=== PATIENT | male | born 1970 | race Caucasian/White ===

== ENCOUNTER → 2019-01-04 | Emergency (ER) | payer OTHER | LOC: ER 23:43 ==

== ENCOUNTER 2019-07-02 11:05 | Inpatient (IN) | payer MEDICAID ==
[~2019-07-02] VITALS: Ht 187.9 cm; Wt 62.0 kg
[~2019-07-02 11:05] MED LIST: ASPI325T32 PO; DABI150C5 PO; DILT240C PO; HYDR-3816 PO; IPRA4AER IH; METO-333 PO; RT-ALBUINH IH
[2019-07-02] MEDS ORDERED: ASPIRIN 81 MG CHEW (CHILDREN'S ASA) ONE (11:06)
[2019-07-02] MEDS ORDERED: ASPIRIN 81 MG CHEW (CHILDREN'S ASA) PO ONE (11:15)
--- NOTE | 2019-07-02 11:20 | ED Chest Pain ---
General Stated Complaint: CHEST PAIN Source: patient Exam Limitations: no limitations History of Present Illness Date Seen by Provider: Jul 02, 2019 Time Seen by Provider: 11:17 Initial Comments to ER by private vehicle from home with chest pain left sided constant for 3 days. Has a history of irregular heartbeat he says, follows with a central service tech in [place] whose name he doesn't know. States he doesn't have a primary care provider has his medications with him, this is diltiazem 240 mg daily, metoprolol, Pradaxa. Timing/Duration: 2-3 days Severity/Quality: moderate Activities at Onset: none ASA po FINANCIAL AGENT: No NTG SL FINANCIAL AGENT: No Associated Symptoms: denies symptoms Allergies and Home Medications Allergies Coded Allergies: No Known Drug Allergies (Unverified , 07/05/13) Home Medications Albuterol Sulfate 1 Puff Puff, 2 PUFF IH Q4H, (Reported) 1 PUFF = 90 MCG Albuterol/Ipratropium 4 Gm Aero, 2 PUFF IH DAILY, (Reported) Dabigatran Etexilate Mesylate 150 Mg Capsule, 150 MG PO BID, (Reported) Diltiazem Hcl 240 Mg Cap.sr.24h, 240 MG PO DAILY, (Reported) Take every morning Metoprolol Tartrate 25 Mg Tablet, 25 MG PO BID, (Reported) Patient Home Medication List Home Medication List Reviewed: Yes Review of Systems Review of Systems Constitutional: see HPI EENTM: No Symptoms Reported Respiratory: No Symptoms Reported Cardiovascular: See HPI, Chest Pain Gastrointestinal: No Symptoms Reported Genitourinary: No Symptoms Reported Musculoskeletal: no symptoms reported Skin: no symptoms reported Psychiatric/Neurological: No Symptoms Reported Endocrine: No Symptoms Reported Hematologic/Lymphatic: No Symptoms Reported Past Ekxnnlk-Gvsgyp-Dxuqgi Hx Patient Social History Drug of Choice: cannibus Type Used: Cigarettes 2nd Hand Smoke Exposure: Yes Recent Hopitalizations: No Immunizations Up To Date Tetanus Booster (TDap): Unknown Seasonal Allergies Seasonal Allergies: No Past Medical History Surgeries: No Respiratory: Yes COPD Cardiac: Yes (svt) Atrial Fibrillation, Hypertension Neurological: No Reproductive Disorders: No Genitourinary: No Gastrointestinal: No Musculoskeletal: No Endocrine: No HEENT: No Cancer: No Psychosocial: Yes Anxiety Integumentary: No Blood Disorders: No Adverse Reaction/Blood Tranf: No Physical Exam Vital Signs Vital Signs - First Documented 07/02/19 11:10 Temp 36.3 Pulse 101 Resp 20 B/P (MAP) 124/67 (86) Pulse Ox 100 O2 Delivery Room Air Capillary Refill : Height, Weight, BMI Height: 6'2.00" Weight: 145lbs. 5.0oz. 65.959746bs; 18.7 BMI Method:Stated General Appearance: No Apparent Distress, WD/WN HEENT: PERRL/EOMI, TMs Normal Respiratory: No Accessory Muscle Use, No Respiratory Distress Cardiovascular: Normal Peripheral Pulses, Irregularly Irregular (rate is under 100, a flutter) Gastrointestinal: Normal Bowel Sounds, Non Tender, Soft Extremity: Normal Capillary Refill, Normal Inspection Neurologic/Psychiatric: Alert, Oriented x3 Skin: Normal Color, Warm/Dry Progress/Results/Core Measures Results/Orders Lab Results Laboratory Tests Test 07/02/19 11:30 07/02/19 12:40 Range/Units White Blood Count 10.6 4.3-11.0 10^3/uL Red Blood Count 5.64 4.35-5.85 10^6/uL Hemoglobin 17.7 13.3-17.7 G/DL Hematocrit 52 40-54 % Mean Corpuscular Volume 92 80-99 FL Mean Corpuscular Hemoglobin 31 25-34 PG Mean Corpuscular Hemoglobin Concent 34 32-36 G/DL Red Cell Distribution Width 14.9 H 10.0-14.5 % Platelet Count 263 130-400 10^3/uL Mean Platelet Volume 10.1 7.4-10.4 FL Neutrophils (%) (Auto) 64 42-75 % Lymphocytes (%) (Auto) 23 12-44 % Monocytes (%) (Auto) 9 0-12 % Eosinophils (%) (Auto) 4 0-10 % Basophils (%) (Auto) 1 0-10 % Neutrophils # (Auto) 6.8 1.8-7.8 X 10^3 Lymphocytes # (Auto) 2.5 1.0-4.0 X 10^3 Monocytes # (Auto) 0.9 0.0-1.0 X 10^3 Eosinophils # (Auto) 0.4 H 0.0-0.3 10^3/uL Basophils # (Auto) 0.1 0.0-0.1 10^3/uL Prothrombin Time 14.2 12.2-14.7 SEC INR Comment 1.1 0.8-1.4 Activated Partial Thromboplast Time 47 H 24-35 SEC Sodium Level 141 135-145 MMOL/L Potassium Level 4.4 3.6-5.0 MMOL/L Chloride Level 104 98-107 MMOL/L Carbon Dioxide Level 27 21-32 MMOL/L Anion Gap 10 5-14 MMOL/L Blood Urea Nitrogen 11 7-18 MG/DL Creatinine 1.00 0.60-1.30 MG/DL Estimat Glomerular Filtration Rate > 60 BUN/Creatinine Ratio 11 Glucose Level 89 70-105 MG/DL Calcium Level 10.0 8.5-10.1 MG/DL Corrected Calcium 8.5-10.1 MG/DL Magnesium Level 2.1 1.6-2.4 MG/DL Total Bilirubin 0.4 0.1-1.0 MG/DL Aspartate Amino Transf (AST/SGOT) 28 5-34 U/L Alanine Aminotransferase (ALT/SGPT) 40 0-55 U/L Alkaline Phosphatase 76 40-136 U/L Myoglobin 42.5 10.0-92.0 NG/ML Troponin I 0.079 H <0.028 NG/ML B-Type Natriuretic Peptide 33.8 <100.0 PG/ML Total Protein 8.2 6.4-8.2 GM/DL Albumin 4.7 H 3.2-4.5 GM/DL Lipase 14 8-78 U/L Serum Alcohol < 10 <10 MG/DL Urine Color YELLOW Urine Clarity CLEAR Urine pH 5 5-9 Urine Specific [place] 1.010 L 1.016-1.022 Urine Protein NEGATIVE NEGATIVE Urine Glucose (UA) NEGATIVE NEGATIVE Urine Ketones NEGATIVE NEGATIVE Urine Nitrite NEGATIVE NEGATIVE Urine Bilirubin NEGATIVE NEGATIVE Urine Urobilinogen NORMAL NORMAL MG/DL Urine Leukocyte Esterase NEGATIVE NEGATIVE Urine RBC (Auto) NEGATIVE NEGATIVE Urine RBC NONE /HPF Urine WBC NONE /HPF Urine Squamous Epithelial Cells RARE /HPF Urine Crystals NONE /LPF Urine Bacteria NEGATIVE /HPF Urine Casts PRESENT /LPF Urine Hyaline Casts 2-5 H /LPF Urine Granular Casts RARE /LPF Urine Mucus SMALL H /LPF Urine Culture Indicated NO Urine Opiates Screen NEGATIVE NEGATIVE Urine Oxycodone Screen NEGATIVE NEGATIVE Urine Methadone Screen NEGATIVE NEGATIVE Urine Propoxyphene Screen NEGATIVE NEGATIVE Urine Barbiturates Screen NEGATIVE NEGATIVE Ur Tricyclic Antidepressants Screen NEGATIVE NEGATIVE Urine Phencyclidine Screen NEGATIVE NEGATIVE Urine Amphetamines Screen NEGATIVE NEGATIVE Urine Methamphetamines Screen NEGATIVE NEGATIVE Urine Benzodiazepines Screen NEGATIVE NEGATIVE Urine Cocaine Screen NEGATIVE NEGATIVE Urine Cannabinoids Screen POSITIVE H NEGATIVE My Orders Orders - DEIDRA BARROSO APRN Aspirin Chewable Tablet (Baby Aspirin Ch (07/02/19 11:06) Cbc With Automated Diff (07/02/19 11:15) Magnesium (07/02/19 11:15) Chest 1 View, Ap/Pa Only (07/02/19 11:15) Ekg Tracing (07/02/19 11:15) Cardiac Profile 1 (07/02/19 11:15) Comprehensive Metabolic Panel (07/02/19 11:15) Myoglobin Serum (07/02/19 11:15) Protime With Inr (07/02/19 11:15) Partial Thromboplastin Time (07/02/19 11:15) O2 (07/02/19 11:15) Monitor-Rhythm Ecg Trace Only (07/02/19 11:15) Lipid Panel (07/03/19 06:00) Ed Iv/Invasive Line Start (07/02/19 11:15) Lipase (07/02/19 11:15) BNP (07/02/19 11:15) Aspirin Chewable Tablet (Baby Aspirin Ch (07/02/19 11:15) Drug Screen Stat (Urine) (07/02/19 11:20) Ua Culture If Indicated (07/02/19 11:20) Alcohol (07/02/19 11:30) Enoxaparin Injection (Lovenox Injection) (07/02/19 13:00) Medications Given in ED Current Medications Medications Dose Ordered Sig/Wing Route Start Time Stop Time Status Last Admin Dose Admin Aspirin 324 mg ONCE ONCE PO 07/02/19 11:15 07/02/19 11:18 DC 07/02/19 11:15 324 MG Vital Signs/I&O 07/02/19 07/02/19 11:10 11:10 Temp 36.3 Pulse 101 Resp 20 B/P (MAP) 124/67 (86) Pulse Ox 100 O2 Delivery Room Air Room Air Departure Communication (Admissions) Time/Spoke to Admitting Phy: 13:[address] Martin, we'll admit, consult cardiology Time/Spoke to Consulting Phy: 13:[address] Khalid, agrees to consult, we will use Lovenox. He is rate controlled at 88 on his oral Cardizem. 1312-discussed the plan with the patient, he is agreeable to stay in the hospital, he advises that he has absolutely no pain at this time, all that he has been given his aspirin. He denies ever having had cardiac catheterization as far as he is aware Impression Primary Impression: Chest pain Qualified Codes: R07.9 - Chest pain, unspecified Additional Impression: Elevated troponin Disposition: ADMITTED INPATIENT Condition: Stable Admissions Decision to Admit Reason: Admit from ER (General) Decision to Admit/Date: Jul 02, 2019 Time/Decision to Admit Time: 13:14 Departure-Patient Inst. Referrals: NO,LOCAL PHYSICIAN (PCP/Family) Primary Care Physician DEIDRA BARROSO APRN Jul 02, 2019 11:20
[2019-07-02 11:53] LABS: BASOPHILS # (AUTO) 0.1 10^3/uL (0.0-0.1); BASOPHILS % (AUTO) 1 % (0-10); EOSINOPHILS # (AUTO) 0.4 10^3/uL (0.0-0.3); EOSINOPHILS % (AUTO) 4 % (0-10); HEMATOCRIT 52 % (40-54); HEMOGLOBIN 17.7 G/DL (13.3-17.7); LYMPHOCYTES # (AUTO) 2.5 X 10^3 (1.0-4.0); LYMPHOCYTES % (AUTO) 23 % (12-44); MEAN CORPUSCULAR HEMOGLOBIN 31 PG (25-34); MEAN CORPUSCULAR HGB CONC 34 G/DL (32-36); MEAN CORPUSCULAR VOLUME 92 FL (80-99); MEAN PLATELET VOLUME 10.1 FL (7.4-10.4); MONOCYTES # (AUTO) 0.9 X 10^3 (0.0-1.0); MONOCYTES % (AUTO) 9 % (0-12); NEUTROPHILS # (AUTO) 6.8 X 10^3 (1.8-7.8); NEUTROPHILS % (AUTO) 64 % (42-75); PLATELET COUNT 263 10^3/uL (130-400); RED CELL DISTRIBUTION WIDTH 14.9 % (10.0-14.5); WHITE BLOOD COUNT 10.6 10^3/uL (4.3-11.0)
--- NOTE | 2019-07-02 12:03 | Diagnostic Imaging Report ---
INDICATION: Chest pain. TECHNIQUE: A frontal chest was obtained at 1136 hours. COMPARISON: 01/05/2019. FINDINGS: The heart is borderline enlarged. There is hyperinflation, compatible with COPD. There is no consolidation, pneumothorax, or pleural fluid. There is mild central vascular congestion without hardik edema. IMPRESSION: Mild cardiomegaly with mild central vascular congestion and hyperinflation, compatible with COPD. No acute change from 01/05/2019. Dictated by: Dictated on workstation # [id number]
[2019-07-02 12:25] LABS: INR 1.1 (0.8-1.4); PROTHROMBIN TIME PATIENT 14.2 SEC (12.2-14.7)
[2019-07-02 12:31] LABS: ALANINE AMINOTRANSFERASE 40 U/L (0-55); ALBUMIN 4.7 GM/DL (3.2-4.5); ALKALINE PHOSPHATASE 76 U/L (40-136); BILIRUBIN,TOTAL 0.4 MG/DL (0.1-1.0); BUN/CREATININE RATIO 11; CARBON DIOXIDE 27 MMOL/L (21-32); CHLORIDE 104 MMOL/L (98-107); GFR ESTIMATED > 60; GLUCOSE 89 MG/DL (70-105); LIPASE 14 U/L (8-78); MAGNESIUM 2.1 MG/DL (1.6-2.4); POTASSIUM 4.4 MMOL/L (3.6-5.0); SODIUM 141 MMOL/L (135-145); TOTAL PROTEIN 8.2 GM/DL (6.4-8.2)
[2019-07-02 12:53] LABS: BILIRUBIN,URINE NEGATIVE (NEGATIVE); CLARITY,URINE CLEAR; COLOR,URINE YELLOW; GLUCOSE, URINE (UA) NEGATIVE (NEGATIVE); KETONES,URINE NEGATIVE (NEGATIVE); LEUKOCYTE ESTERASE ,URINE NEGATIVE (NEGATIVE); NITRITE,URINE NEGATIVE (NEGATIVE); PH,URINE 5 (5-9); PROTEIN,URINE NEGATIVE (NEGATIVE); UROBILINOGEN,URINE NORMAL (NORMAL)
[2019-07-02] MEDS ORDERED: ENOXAPARIN 60 MG/0.6 ML (LOVENOX) SYR SC ONE (13:00)
[2019-07-02 13:07] LABS: AMPHETAMINE SCREEN, URINE NEGATIVE (NEGATIVE); BARBITURATE SCREEN URINE NEGATIVE (NEGATIVE); BENZODIAZEPINES SCREEN URINE NEGATIVE (NEGATIVE); CANNABINOID SCREEN, URINE POSITIVE (NEGATIVE); COCAINE SCREEN URINE NEGATIVE (NEGATIVE); METHADONE STAT NEGATIVE (NEGATIVE); METHAMPHETAMINE SCREEN URINE S NEGATIVE (NEGATIVE); OPIATE SCREEN URINE NEGATIVE (NEGATIVE); OXYCODONE STAT NEGATIVE (NEGATIVE); PROPOXYPHENE STAT NEGATIVE (NEGATIVE); TRICYCLIC ANTIDEPRESSANTS SCRE NEGATIVE (NEGATIVE)
[2019-07-02 13:08] LABS: BACTERIA,URINE NEGATIVE /HPF; GRANULAR CASTS,URINE RARE /LPF; SQUAMOUS EPITHELIAL CELL,UR RARE /HPF
--- NOTE | 2019-07-02 14:33 | NUR ---
AGUSTINA MORROW admitted to room 433-1, with an admitting diagnosis of chest pain, on 07/02/19 from ed via wheel chair , accompanied by staff and significant other .AGUSTINA MORROW introduced to surroundings, call light, bed controls, phone, TV, temperature control, lights, meal times, smoking policy, visitor policy, side rail policy, bathrooms and showers. Patient Rights given to patient in the handbook. AGUSTINA MORROW verbalizes understanding that [facility] is not responsible for the loss or damage to any personal effects or valuables that are kept in the patients posession during their hospitalization. The following Patient Care Plans and discharge were discussed with the patient. AGUSTINA MORROW verbalizes understanding of Interdisciplinary Patient Education. Patient and family were informed about the Rapid Response Team and its purpose.
[2019-07-02] MEDS ORDERED: DILT240C47 PO (15:11)
[2019-07-02] MEDS: LACTATED RINGERS 1,000 ML IV SCH ×2 (15:13→23:51)
[2019-07-02] MEDS ORDERED: CATHETER FLUSH 10 ML SYR IV PRN (15:15)
[2019-07-02] MEDS ORDERED: NITROGLYCERIN 0.4 MG SL TABS BTL 25'S SL PRN (15:15)
[2019-07-02] MEDS ORDERED: ASPI-983 PO (15:24)
--- NOTE | 2019-07-02 15:25 | NUR ---
SPOKE WITH PT(HE HAD HIS BOTTLES) WELL GOING THRU THE EXT MED HISTORY TO COMPLETE THE MED REC. METOPROLOL 25MG: PT IS TAKING 1 TAB BID, HOWEVER HIS BOTTLE FROM [facility] SAYS 1/2 TAB BID. PT SAYS HE WAS TOLD LAST TIME HE WAS SEEN TO TAKE 1 TAB INSTEAD OF 1/2. PT STATES HE ALSO TAKES HYDROCODONE BUT IT IS NOT ON THE EXTERNAL MED HISTORY AND [facility] DID NOT HAVE IT FILLED RECENTLY. PT SAYS HE TAKES PRN BUT THERE IS NOTHING ACTIVE. COMBIVENT AND PRO PT SAYS THESE ARE ALSO PRN. OTC MEDS: ASPIRIN 81M BID
[2019-07-02 16:00] VITALS: BP 114/77
[2019-07-02 16:26] VITALS: BP 109/80
--- NOTE | 2019-07-02 17:53 | Consultation-Cardiology ---
HPI-Cardiology Cardiology Consultation: Date of Consultation 07/02/19 Date of Admission Attending Physician Jennie Martin MD Admitting Physician Monica,Local Physician Consulting Physician Thai FOURNIER MD HPI: Time Seen by a Provider: 15:30 Chief Complaint: Chest pain This is a 48-year-old gentleman who has previous history of atrial fibrillation and is on oral anticoagulation. He also takes Cardizem and metoprolol. He was seen previously in [facility] in [place]. He presents with complains of chest pain for the last 3 days. He denies any prior dictations, shortness of breath, syncope or near syncope. Review of Systems-Cardiology Review of Systems Constitutional: As described under HPI; No As described under HPI, No no symptoms reported, No chills, No fever, No lightheadedness Eyes: No As described under HPI, No no symptoms reported, No blindness, No blurred vision, No contact lenses, No drainage, No decreased acuity, No foreign body sensation, No pain, No vision change Ears/Nose/Throat: No As described under HPI, No no symptoms reported, No chronic hearing loss, No ear discharge, No ear pain, No nasal drainage, No ulcerations Respiratory: No no symptoms reported; As described under HPI; No As described under HPI, No cough, No orthopnea, No shortness of breath, No SOB with excertion Cardiovascular: No no symptoms reported; As described under HPI; No As described under HPI; chest pain; No edema, No irregular heart rate, No lightheadedness, No palpitations Gastrointestinal: No no symptoms reported, No As described under HPI, No abdomen distended, No abdominal pain, No blood streaked bowels, No constipation, No diarrhea, No nausea, No vomiting, No stool coloration changes Genitourinary: No As described under HPI, No burning, No dysuria, No discharge, No frequency, No flank pain, No hematuria, No urgency Skin: No rash, No skin related problems, No ulcerations Psychiatric/Neurological: No anxiety, No depression, No seizure, No focal weakness, No syncope Hematologic: No bleeding abnormalities ZQZ-[id number]-Lexvqn Hx Patient Social History Alcohol Use: Denies Use Recreational Drug Use: Yes Drug of Choice: cannibus Smoking Status: Current Everyday Smoker Type Used: Pipe 2nd Hand Smoke Exposure: Yes Recent Foreign Travel: No Recent Infectious Disease Expo: No Hospitalization with Isolation: Denies Physical Abuse Screen: No Sexual Abuse: No Immunizations Up To Date Tetanus Booster (TDap): Unknown Past Medical History PMH As described under Assessment. Family Medical History Family History: Alcoholism Alzheimer's disease Cardiovascular disease Colon cancer Diabetes mellitus Psychosocial problem Allergies and Home Medications Allergies Coded Allergies: No Known Drug Allergies (Unverified , 07/05/13) Home Medications Albuterol Sulfate 1 Puff Puff, 2 PUFF IH Q4H, (Reported) Albuterol/Ipratropium 4 Gm Aero, 2 PUFF IH DAILY, (Reported) Aspirin 81 Mg Tablet.dr, 81 MG PO BID, (Reported) Dabigatran Etexilate Mesylate 150 Mg Capsule, 150 MG PO BID, (Reported) Diltiazem HCl 240 Mg Cap.er.deg, 240 MG PO DAILY, (Reported) Metoprolol Tartrate 25 Mg Tablet, 25 MG PO BID, (Reported) Patient Home Medication List Home Medication List Reviewed: Yes Physical Exam-Cardiology Physical Exam Vital Signs/I&O 07/02/19 07/02/19 07/02/19 07/02/19 11:10 11:10 14:36 16:00 Temp 36.3 36.3 36.8 Pulse 101 80 82 Resp 20 15 20 B/P (MAP) 124/67 (86) 109/80 (86) 114/77 Pulse Ox 100 98 98 O2 Delivery Room Air Room Air Room Air Room Air 07/02/19 07/02/19 16:26 16:58 Temp 36.3 Pulse 80 Resp 15 B/P (MAP) 109/80 Pulse Ox 98 O2 Delivery Room Air Room Air Capillary Refill : Less Than 3 Seconds Constitutional: appears stated age, AAO x 3; No apparent distress; well- developed, well-nourished HEENT: PERRL; No discharge; hearing is well preserved, oral hygience is good; No ulceration, No xanthelasmas are seen Neck: No carotid bruit; carotid pulses are 2 + bilaterally Respiratory: chest is bilaterally symmetric, lungs clear to auscultation Cardiovascular: regular rate-rhythm, S1 and S2 Gastrointestinal: soft, audible bowel sounds; No spleenomegaly Rectal: deferred Extremities: normal range of motion, non-tender, normal inspection; No clubbing, No cyanosis; no lower extremity edema bilateral; No significant edema Neurologic/Psychiatric: no motor/sensory deficits, alert, normal mood/affect, oriented x 3, power is 5/5 both on sides Skin: normal color; No rash, No ulcerations Data Review Labs Laboratory Tests 07/02/19 11:30: White Blood Count 10.6, Red Blood Count 5.64, Hemoglobin 17.7, Hematocrit 52, Mean Corpuscular Volume 92, Mean Corpuscular Hemoglobin 31, Mean Corpuscular Hemoglobin Concent 34, Red Cell Distribution Width 14.9H, Platelet Count 263, Mean Platelet Volume 10.1, Neutrophils (%) (Auto) 64, Lymphocytes (%) (Auto) 23, Monocytes (%) (Auto) 9, Eosinophils (%) (Auto) 4, Basophils (%) (Auto) 1, Neutrophils # (Auto) 6.8, Lymphocytes # (Auto) 2.5, Monocytes # (Auto) 0.9, Eo sinophils # (Auto) 0.4H, Basophils # (Auto) 0.1, Prothrombin Time 14.2, INR Comment 1.1, Activated Partial Thromboplast Time 47H, Sodium Level 141, Potassium Level 4.4, Chloride Level 104, Carbon Dioxide Level 27, Anion Gap 10, Blood Urea Nitrogen 11, Creatinine 1.00, Estimat Glomerular Filtration Rate > 60, BUN/Creatinine Ratio 11, Glucose Level 89, Calcium Level 10.0, Corrected Calcium , Magnesium Level 2.1, Total Bilirubin 0.4, Aspartate Amino Transf (AST/SGOT) 28, Alanine Aminotransferase (ALT/SGPT) 40, Alkaline Phosphatase 76, Myoglobin 42.5, Troponin I 0.079H, B-Type Natriuretic Peptide 33.8, Total Protein 8.2, Albumin 4.7H, Lipase 14, Serum Alcohol < 10 07/02/19 12:40: Urine Color YELLOW, Urine Clarity CLEAR, Urine pH 5, Urine Specific [place] 1.010L, Urine Protein NEGATIVE, Urine Glucose (UA) NEGATIVE, Urine Ketones NEGATIVE, Urine Nitrite NEGATIVE, Urine Bilirubin NEGATIVE, Urine Urobilinogen NORMAL, Urine Leukocyte Esterase NEGATIVE, Urine RBC (Auto) NEGATIVE, Urine RBC NONE, Urine WBC NONE, Urine Squamous Epithelial Cells RARE, Urine Crystals NONE, Urine Bacteria NEGATIVE, Urine Casts PRESENT, Urine Hyaline Casts 2-5H, Urine Granular Casts RARE, Urine Mucus SMALLH, Urine Culture Indicated NO, Urine Opiates Screen NEGATIVE, Urine Oxycodone Screen NEGATIVE, Urine Methadone Screen NEGATIVE, Urine Propoxyphene Screen NEGATIVE, Urine Barbiturates Screen NEGATIVE, Ur Tricyclic Antidepressants Screen NEGATIVE, Urine Phencyclidine Screen NEGATIVE, Urine Amphetamines Screen NEGATIVE, Urine Methamphetamines Screen NEGATIVE, Urine Benzodiazepines Screen NEGATIVE, Urine Cocaine Screen NEGATIVE, Urine Cannabinoids Screen POSITIVEH 07/02/19 17:25: Troponin I 0.126H ECG Impression ECG Initial ECG Rhythm: A Fib/Flutter A/P-Cardiology Assessment/Admission Diagnosis Non-STEMI, Typical atrial flutter, Cannabinoid use, Smoking Plan NSTEMI, no further chest pain on my evaluation. Positive cardiac enzymes. Lovenox given. Patient is already on oral anticoagulation. Request echocardiogram. Coronary angiography likely tomorrow. Typical atrial flutter, if continues to be in typical atrial flutter tomorrow, transesophageal echocardiogram assisted cardioversion will be recommended. Patient is already on Pradaxa, Cardizem, metoprolol. Cannabinoid use, Smoking, smoking cessation was recommended. Thank you for your consultation. Please call me if you have any questions. Paris Fournier MD, FACP, FACC, FSCAI, FHRS, CCDS Interventional Cardiology Cardiac Electrophysiology Vascular Medicine and Endovascular Interventions Clinical Quality Measures AMI/AHF: ASA po Prior to arrival: No DVT/VTE Risk/Contraindication: Risk Factor Score Per Nursin RFS Level Per Nursing on Admit: 2=Moderate Thai FOURNIER MD Jul 02, 2019 17:53
--- NOTE | 2019-07-02 18:08 | NUR ---
patient states has many concerns regarding treatment plans and possible procedure , would like dr stapleton address his concerns before any procedure or treatment
[2019-07-02 19:43] VITALS: BP 115/79
[2019-07-02] MEDS: meTOprolol TARTRATE 25 MG (LOPRESSOR) TABLET PO SCH (20:43)
--- NOTE | 2019-07-02 22:37 | History & Physical-Hospitalist ---
History of Present Illness HPI/Chief Complaint Perry Lang is a 48-year-old male with past medical history of atrial flutter, medication nonadherence, COPD, tobacco abuse, cannabis abuse, who presented with chest pain. He reports that he had been having a burning chest pain which has now resolved. He reports no radiation of the pain to his neck, jaw, or arm. He denies any nausea or vomiting. He denies any diaphoresis. He denies any shortness of breath. He denies ever having any steeling like this before. Source: patient Exam Limitations: no limitations Date Seen 07/02/19 Time Seen by a Provider: 16:45 Attending Physician Jennie Martin MD PCP No,Local Physician Referring Physician Date of Admission Jul 02, 2019 at 14:25 Home Medications & Allergies Home Medications Reviewed patient Home Medication Reconciliation performed by pharmacy medication reconciliations nursery technician and/or nursing. Patients Allergies have been reviewed. Allergies Allergies Coded Allergies No Known Drug Allergies (Unverified07/05/13) Past Rbduiny-Wwsuwt-Qudhsd Hx Past Med/Social Hx: Reviewed Nursing Past Med/Soc Hx Patient Social History Alcohol Use: Denies Use Recreational Drug Use: Yes Drug of Choice: cannibus Smoking Status: Current Everyday Smoker Type Used: Pipe 2nd Hand Smoke Exposure: Yes Physical Abuse Screen: No Sexual Abuse: No Recent Foreign Travel: No Contact w/other who traveled: No Recent Hopitalizations: No Recent Infectious Disease Expo: No Immunizations Up To Date Tetanus Booster (TDap): Unknown Seasonal Allergies Seasonal Allergies: No Past Medical History Cardiac: Atrial Fibrillation, Hypertension Reproductive: No Psychosocial: Anxiety History of Blood Disorders: No Adverse Reaction to Blood Jean: No Family History Alcoholism Alzheimer's disease Cardiovascular disease Colon cancer Diabetes mellitus Psychosocial problem Review of Systems Constitutional: no symptoms reported EENTM: no symptoms reported Respiratory: no symptoms reported Cardiovascular: chest pain Gastrointestinal: no symptoms reported Genitourinary: no symptoms reported Musculoskeletal: no symptoms reported Skin: no symptoms reported Psychiatric/Neurological: No Symptoms Reported Physical Exam Physical Exam Vital Signs Vital Signs - First Documented 07/02/19 11:10 Temp 36.3 Pulse 101 Resp 20 B/P (MAP) 124/67 (86) Pulse Ox 100 O2 Delivery Room Air Capillary Refill : Less Than 3 Seconds Height, Weight, BMI Height: 6'2.00" Weight: 145lbs. 5.0oz. 65.962349th; 17.56 BMI Method:Stated General Appearance: No Apparent Distress, Other (Disheveled, poorly groomed) HEENT: PERRL/EOMI, Pharynx Normal Neck: Normal Inspection, Supple Respiratory: Lungs Clear, Normal Breath Sounds, No Respiratory Distress Cardiovascular: Regular Rate, Rhythm, No Edema, No Murmur Gastrointestinal: Normal Bowel Sounds, Non Tender, Soft Extremity: Normal Inspection, Non Tender, No Pedal Edema Neurologic/Psychiatric: Alert, No Motor/Sensory Deficits; No Disoriented Skin: Normal Color, Warm/Dry Lymphatic: No Adenopathy Results Results/Procedures Labs Laboratory Tests 07/02/19 11:30 Patient resulted labs reviewed. Imaging: Reviewed Imaging Report Assessment/Plan Admission Diagnosis NSTEMI Admission Status: Inpatient Order (span 2 midnights) Reason for Inpatient Admission: Atrial flutter Assessment and Plan Atrial flutter NSTEMI EKG revealed atrial flutter Troponin elevated at 0.07 on admission Given aspirin and therapeutic Lovenox Cardiology consulted, appreciate assistance Nothing by mouth midnight for possible KIEL cardioversion Also may undergo left heart catheterization tomorrow COPD without acute exacerbation MAT protocol Diagnosis/Problems Diagnosis/Problems (1) NSTEMI (non-ST elevated myocardial infarction) Status: Acute (2) Atrial flutter Status: Acute Clinical Quality Measures AMI/AHF: ASA po Prior to arrival: No DVT/VTE Risk/Contraindication: Risk Factor Score Per Nursin RFS Level Per Nursing on Admit: 2=Moderate JENNIE MARTIN MD Jul 02, 2019 22:37
[2019-07-03] VITALS (13 sets, daily range): BP systolic 103–123; BP diastolic 58–101
[2019-07-03] MEDS: ENOXAPARIN 60 MG/0.6 ML (LOVENOX) SYR SC SCH ×2 (01:18→12:35)
[2019-07-03] MEDS: LACTATED RINGERS 1,000 ML IV SCH ×2 (03:18→11:49)
[2019-07-03 05:18] LABS: BASOPHILS # (AUTO) 0.1 10^3/uL (0.0-0.1); BASOPHILS % (AUTO) 1 % (0-10); EOSINOPHILS # (AUTO) 0.6 10^3/uL (0.0-0.3); EOSINOPHILS % (AUTO) 5 % (0-10); HEMATOCRIT 44 % (40-54); LYMPHOCYTES # (AUTO) 4.5 X 10^3 (1.0-4.0); LYMPHOCYTES % (AUTO) 38 % (12-44); MEAN CORPUSCULAR HEMOGLOBIN 31 PG (25-34); MEAN CORPUSCULAR HGB CONC 34 G/DL (32-36); MEAN CORPUSCULAR VOLUME 93 FL (80-99); MONOCYTES % (AUTO) 9 % (0-12); NEUTROPHILS # (AUTO) 5.8 X 10^3 (1.8-7.8); NEUTROPHILS % (AUTO) 48 % (42-75); PLATELET COUNT 241 10^3/uL (130-400); RED CELL DISTRIBUTION WIDTH 14.6 % (10.0-14.5); WHITE BLOOD COUNT 11.9 10^3/uL (4.3-11.0)
[2019-07-03 05:34] LABS: ALANINE AMINOTRANSFERASE 29 U/L (0-55); ALBUMIN 3.9 GM/DL (3.2-4.5); ALKALINE PHOSPHATASE 70 U/L (40-136); BILIRUBIN,TOTAL 0.4 MG/DL (0.1-1.0); BUN/CREATININE RATIO 12; CALCIUM 9.3 MG/DL (8.5-10.1); CARBON DIOXIDE 26 MMOL/L (21-32); CHLORIDE 104 MMOL/L (98-107); CHOLESTEROL 244 MG/DL (< 200); CREATININE SERUM 0.83 MG/DL (0.60-1.30); GFR ESTIMATED > 60; GLUCOSE 89 MG/DL (70-105); HDL CHOLESTEROL 53 MG/DL (40-60); POTASSIUM 4.1 MMOL/L (3.6-5.0); SODIUM 139 MMOL/L (135-145); TOTAL PROTEIN 6.6 GM/DL (6.4-8.2); TRIGLYCERIDES 126 MG/DL (<150); VLDL CHOLESTEROL 25 MG/DL (5-40)
[2019-07-03] MEDS: DILTIAZEM 240 MG (CARDIZEM CD) CAP PO SCH (08:25)
[2019-07-03] MEDS: meTOprolol TARTRATE 25 MG (LOPRESSOR) TABLET PO SCH ×2 (08:25→20:30)
[2019-07-03] MEDS: ASPIRIN 81 MG CHEW (CHILDREN'S ASA) PO SCH (08:30)
[2019-07-03] MEDS ORDERED: LIDOCAINE 2% VISCOUS 15 ML UDC ONE (11:17)
[2019-07-03] MEDS ORDERED: HEParin (CATH LAB) 2,000 ML IV ONE (11:18)
[2019-07-03] MEDS ORDERED: LIDOCAINE 1% INJ 20 ML 20 ML VIAL ONE (11:18)
[2019-07-03] MEDS ORDERED: NS IV 1000 ML 1,000 ML ONE ×2 (11:18→16:33)
[2019-07-03] MEDS ORDERED: proPOfol 200 MG/20 ML (DIPRIVAN) VIAL IV ONE ×3 (14:23→17:07)
[2019-07-03] MEDS ORDERED: fentaNYL INJECTION 100 MCG/2 ML AMP ONE (14:23)
[2019-07-03] MEDS ORDERED: MIDAZOLAM 5 MG/5 ML (VERSED) VIAL ONE (14:23)
[2019-07-03] MEDS ORDERED: VERAPAMIL 5 MG/2 ML (CALAN) VIAL IV ONE (15:06)
[2019-07-03] MEDS ORDERED: HEParin 1000 UNIT/ML (10ML VIAL) FOR BOLUS ONE (15:06)
[2019-07-03] MEDS ORDERED: NITRO DRIP 25000 MCG/D5W 250 ML IV ONE (15:06)
--- NOTE | 2019-07-03 15:28 | NUR ---
Report given to ELVIS Mosquera.
[2019-07-03] MEDS ORDERED: CLOPIDOGREL 300 MG (PLAVIX) TABLET PO ONE (15:47)
--- NOTE | 2019-07-03 16:00 | Anesthesia-Procedure Note ---
Procedures/Interventions Procedure Start/Stop/Diagnosis Date of Procedure: Jul 03, 2019 Start Time: 15:02 Referring Physician: Shantanu Preprocedural Diagnosis: AFib/Flutter Brief History Called to supervisor laboratory for scheduled sedation for KIEL cardioversion. ASA 3 Brief history obtained from RN and chart. Pt had already been sedated with Fentanyl and Versed and KIEL was in process. Pt was still able to open eyes. Emergency equipment verified O2 per NC flowing. Pt received a total of 120 mg propofol for cardioversion without complications. Spont breathing. VSS report to RN. Pt opening eyes to command at end of anesthesia. Stop Time: 15:16 Postprocedural Diagnosis: Afib/Flutter SHARLENE SPENCE CRNA Jul 03, 2019 16:00
[2019-07-03] MEDS ORDERED: MIDAZOLAM 2 MG/2 ML (VERSED) VIAL ONE (16:15)
[2019-07-03] MEDS ORDERED: KETAMINE HCL 100 MG/ML 5 ML VIAL ONE (16:23)
[2019-07-03] MEDS ORDERED: GLYCOPYRROLATE 0.2 MG/ML (ROBINUL) 2 ML VIAL ONE (16:40)
--- NOTE | 2019-07-03 16:52 | Progress Note - Hospitalist ---
Subjective HPI/CC On Admission Date Seen by Provider: Jul 03, 2019 Time Seen by Provider: 10:20 chest pain Subjective/Events-last exam He denies any recurrence of his chest pain. He denies any shortness of breath. He denies any fevers or chills. Denies any abdominal pain, nausea, vomiting, or diarrhea. He is amenable to undergoing a left heart catheterization and KIEL cardioversion today. Objective Exam Vital Signs Vital Signs Date Time Temp Pulse Resp B/P (MAP) Pulse Ox O2 Delivery O2 Flow Rate FiO2 07/03/19 12:28 76 07/03/19 12:00 36.5 18 112/62 (79) 100 Room Air Capillary Refill : Less Than 3 Seconds General Appearance: No Apparent Distress, Other (Poorly groomed, unkempt) HEENT: PERRL/EOMI, Pharynx Normal Neck: Normal Inspection, Supple Respiratory: Lungs Clear, Normal Breath Sounds, No Respiratory Distress Cardiovascular: No Murmur, Irregularly Irregular Gastrointestinal: Normal Bowel Sounds, Non Tender, Soft Extremity: Normal Inspection, No Pedal Edema Neurologic/Psychiatric: Alert, Oriented x3 Skin: Normal Color, Warm/Dry Results/Procedures Lab Laboratory Tests 07/03/19 05:04 Patient resulted labs reviewed. Assessment/Plan Assessment and Plan Assess & Plan/Chief Complaint Atrial flutter NSTEMI Troponin continued to trend up, 0.15 Nothing by mouth for left heart catheterization and KIEL cardioversion today Appreciate cardiology assistance COPD without acute exacerbation MAT protocol Diagnosis/Problems Diagnosis/Problems (1) NSTEMI (non-ST elevated myocardial infarction) Status: Acute (2) Atrial flutter Status: Acute Clinical Quality Measures AMI/AHF: ASA po Prior to arrival: No DVT/VTE Risk/Contraindication: Risk Factor Score Per Nursin RFS Level Per Nursing on Admit: 2=Moderate ZACKERY OSEGUERA MD Jul 03, 2019 16:52
[2019-07-03] MEDS: NS IV 1000 ML 1,000 ML IV SCH ×2 (17:40→18:46)
--- NOTE | 2019-07-03 17:45 | Cardiac Procedure Note-CS/ASA ---
Pre-Procedure Note Pre-Op Procedure Note H&P Reviewed The H&P was reviewed, patient examined and no changes noted. Date H&P Reviewed: Jul 03, 2019 Time H&P Reviewed: 13:00 Conscious Sedation Pre-Proced Time 13:00 ASA Score 3 For ASA 3 and 4: Consider anesthesia and medical clearance. Also, for patients with a history of failed moderate sedation consider anesthesia. Airway Lungs Heart ASA score ASA 1: a normal healthy patient ASA 2: a patient with a mild systemic disease (mid diabetes, controlled hypertension, obesity ASA 3: a patient with a severe systemic disease that limits activity (angina, COPD, prior Myocardial infarction) ASA 4: a patient with an incapacitating disease that is a constant threat to life (CHF, renal failure) ASA 5: a moribund patient not expected to survive 24 hrs. (ruptured aneurysm) ASA 6: a declared brain- patient whose organs are being harvested. For emergent operations, add the letter E after the classification Mallampati Classification Grade 1 Sedation Plan Analgesia, Amnesia, Plan communicated to team members, Discussed options with patient/fam, Discussed risks with patient/fam The patient is an appropriate candidate to undergo the planned procedure, sedation, and anesthesia. The patient immediately re-assessed prior to indication. Thai CHRISTIAN MD Jul 03, 2019 17:45
--- NOTE | 2019-07-03 17:45 | Cardiology Progress Note ---
Cardiology SOAP Progress Note Subjective: Improved symptoms. Objective: I&O/Vital Signs 07/04/19 07/04/19 07/04/19 07/04/19 05:00 06:00 07:00 08:00 Pulse 50 60 67 62 Resp 14 14 14 B/P (MAP) 99/72 (81) 96/62 (73) 103/68 (80) Pulse Ox 99 97 99 O2 Delivery Room Air Room Air Room Air 07/04/19 07/04/19 07/04/19 07/04/19 08:00 08:00 09:12 12:00 Temp 36.2 36.3 Pulse 54 Resp 16 B/P (MAP) 99/70 (80) Pulse Ox 98 O2 Delivery Room Air Room Air 07/04/19 00:00 Intake Total 400 ml Output Total 108 ml Balance 292 ml Weight (Pounds): 145 Weight (Ounces): 5.0 Weight (Calculated Kilograms): [id number] Constitutional: appears stated age, AAO x 3; No apparent distress; well- developed, well-nourished Respiratory: chest is bilaterally symmetric, lungs clear to auscultation Cardiovascular: regular rate-rhythm, S1 and S2 Gastrointestional: soft, audible bowel sounds; No spleenomegaly Extremities: normal range of motion, non-tender, normal inspection; No clubbing, No cyanosis; no lower extremity edema bilateral; No significant edema Neurologic/Psychiatric: no motor/sensory deficits, alert, normal mood/affect, oriented x 3, power is 5/5 both on sides Skin: normal color; No rash, No ulcerations Results/Procedures: Labs Laboratory Tests 07/04/19 03:06: White Blood Count 16.8H, Red Blood Count 4.24L, Hemoglobin 13.4, Hematocrit 40, Mean Corpuscular Volume 93, Mean Corpuscular Hemoglobin 32, Mean Corpuscular Hemoglobin Concent 34, Red Cell Distribution Width 15.0H, Platelet Count 218, Mean Platelet Volume 10.1, Sodium Level 138, Potassium Level 3.9, Chloride Level 106, Carbon Dioxide Level 26, Anion Gap 6, Blood Urea Nitrogen 10, Creatinine 0.84, Estimat Glomerular Filtration Rate > 60, BUN/Creatinine Ratio 12, Glucose Level 138H, Calcium Level 8.6 A/P: Assessment/Dx: Non-STEMI, Typical atrial flutter, Cannabinoid use, Smoking Plan: NSTEMI, no further chest pain on my evaluation. Positive cardiac enzymes. Coronary angiography today. Echocardiogram. Typical atrial flutter, transesophageal echocardiogram assisted cardioversion today. Patient is already on Pradaxa, Cardizem, metoprolol. Cannabinoid use, Smoking, smoking cessation was recommended. Thank you for your consultation. Please call me if you have any questions. Paris Fournier MD, FACP, FACC, FSCAI, FHRS, CCDS Interventional Cardiology Cardiac Electrophysiology Vascular Medicine and Endovascular Interventions Clinical Quality Measures AMI/AHF: ASA po Prior to arrival: Thai Hu MD Jul 03, 2019 17:45
--- NOTE | 2019-07-03 17:46 | Cardioversion ---
Cardioversion PROCEDURE PHYSICIAN: Paris Fournier MD DATE OF PROCEDURE: 07/03/19 DIRECT EXTERNAL ELECTRICAL CARDIOVERSION: Indications: Typical atrial flutter with rapid ventricular rate Preoperative diagnoses: Typical atrial flutter with rapid ventricular rate Postoperative diagnosis: Sinus rhythm, Successful Electrical Cardioversion History: This is a 48-year-old gentleman with non-STEMI, typical atrial flutter. Anesthesia: By Anesthesia services Complications: None Specimen: None Contrast: 0 Flouroscopy: none Procedure Details: The patient was brought the dental lab technician after informed consent was taken, all the risks and complications were explained including the risk of stroke. Transesophageal echocardiogram showed no evidence of left atrial or left atrial appendage thrombus. Electrical cardioversion was carried out with anesthesia support with propofol. 200 joules of synchronized shock was delivered through external patches which promptly restored sinus rhythm. The patient tolerated the procedure well. Conclusions: 1.Successful Cardioversion. 2.Continue oral anticoagulation and rate controlling agent. Paris Fournier MD, RS, CCDS Cardiac Electrophysiology Thai FOURNIER MD Jul 03, 2019 17:46
--- NOTE | 2019-07-03 17:46 | Coronary Angiography & PCI ---
Coronary Angiography & PCI DATE OF PROCEDURE: 07/03/19 INDICATION: Non-STEMI PREOPERATIVE DIAGNOSIS: Non-STEMI POSTOPERATIVE DIAGNOSIS: Non-STEMI HISTORY: This is a 48-year-old gentleman with history of active smoking. He presents with prolonged episode of chest pain and positive cardiac enzymes. The patient also had atrial flutter with rapid ventricular rate, transesophageal assisted cardioversion done earlier today. Working diagnosis is non-STEMI. Therefore, the patient was scheduled for coronary angiography. PROCEDURES PERFORMED: 1.Coronary angiography. 2.Left heart catheterization. 3.PCI to the RCA. COMPLICATIONS: RCA dissection. SPECIMENS: None. ESTIMATED BLOOD LOSS: 10 mL ANESTHESIA: Conscious sedation ANTICOAGULATION: IV heparin CONTRAST: 264 mL. FLUOROSCOPY: 28.7 minutes. FLOUROSCOPY DOSE: 985 mgy. PROCEDURE DETAILS: The patient is a 48 male and was brought to the mine laborer after informed consent was taken. All the risks and complications were explained in detail; this included the risk of bleeding, vascular damage, stroke, [place] and even . The patient was draped and prepped in the usual sterile fashion. Access was gained in the right radial artery with a 6 Armenian sheath. Coronary angiography and left heart catheterization was performed with the [place] catheter. FINDINGS: 1.Left main: Mild ostial disease. 2.LAD: Mild diffuse disease. Small caliber artery. Moderate to severe proximal/mid first diagonal artery stenosis. 3.Left circumflex artery: Mild diffuse disease. 4.RCA: Severe ulcerated stenosis of the proximal/mid RCA. Long lesion. Severe focal stenosis of the distal RCA. Stenosis severity 99 percent. 5.Left heart catheterization: LV pressure 79/4 mmHg. LVEDP 13 mmHg. Aortic pressure 77/46 mmHg. Normal LV function with no wall motion abnormalities. No gradient across the aortic valve. RECOMMENDATIONS: PCI to the RCA is recommended. INTERVENTION DETAILS: JR4 guide catheter, whisper extra-support guidewire and IV heparin. One ACT was done which was 238 seconds. The lesion in the distal RCA was crossed with the whisper extra-support wire and table the wire was placed in the PL branch. Patient received Plavix 600 mg before PCI was done. Since the distal RCA stenosis was subtotal therefore we decided to predilate with the 20 by 12 balloon at nominal pressures. 10 joshua for 34 seconds in distal RCA and 10 joshua for 20 seconds in the proximal/mid RCA segment. The balloon was then taken out. We then took a Xience Michaelle 2.5 x 12 mm drug-eluting stent and tried to place it in the distal RCA stenosis however the stent did not cover the entire diseased segment. We therefore decided to put another 2.5 x 12 mm stent. The patient was moving constantly despite heavy conscious sedation. He was also co ughing excessively and noncooperative. When we were about to place the second drug-eluting stent in the distal RCA, I noted no flow in the RCA. Angiogram showed severe dissection in the entire RCA with proximal penetration into the right coronary cusp. Severe chest pain and ST elevations. Anesthesia was called. We then took a 3.5 x 15 drug-eluting stent and placed it at the ostium of the RCA. We then took another 2.5 x 38 mm drug-eluting stent and overlapped it with the ostial stent and placed it in the proximal/mid RCA. Significant improvement in flow. However patient continued to move significantly and at this point in time we found that the guide catheter and the wire were out of the vessel in the aorta. However the ST elevations were settling. The anesthetic medication was also taking its affect and the patient gradually settled down. We then took a choice floppy wire. And were able to continue on into the true lumen and placed the tip of the wire in a branch of the PDA. We then took another 2.5 x 12 mm drug-eluting stent and covered the distal RCA stenosis. Significant improvement in flow. We then took a 2.5 x 38 mm drug-eluting stent with overlap with the proximal/mid RCA stent as well as the distal stent. Excellent results with 5 drug-eluting stents from the ostial RCA till the distal RCA. No further staining of the right coronary cusp. Patient stated hemodynam ically with no ST elevations. We then took a 3.5 NC balloon and did postdilatation in the mid RCA till the ostium of the RCA with excellent results. At the end of the procedure we took the wire out and WILLIAM-3 flow with no residue stenosis was demonstrated. No further dissection flap was noted. Patient tolerated the procedure well and was transferred to the recovery area. CONCLUSIONS: 1. Moderate to severe first diagonal artery stenosis, will be treated with medical therapy. 2. Severe long proximal/mid RCA stenosis, severe subtotal distal RCA stenosis treated with drug-eluting stents. Procedure was complicated with dissection of the RCA requiring drug-eluting stents. Excellent results at the end. Paris Fournier MD, FACP, FACC, [facility] Interventional Cardiology Thai FOURNIER MD Jul 03, 2019 17:46
[2019-07-03] MEDS ORDERED: PATIENT MAY USE OWN MEDS, ALL PO SCH (18:00)
--- NOTE | 2019-07-03 18:25 | Anesthesia-Procedure Note ---
Procedures/Interventions Procedure Start/Stop/Diagnosis Date of Procedure: Jul 03, 2019 Start Time: 16:30 Referring Physician: Shantanu Preprocedural Diagnosis: Chest pain,elevated Troponin, A-Flutter Brief History Called by warehouse administrator for emergency rescue sedation in outside laborer. Conscious sedation by RN was not adequate and pt was uncooperative and combative. Brief hx obtained from RN and Dr. Fournier. Pt had O2 per NC that was switched to face mask. Propofol and ketamine infusion was started and maintained for the duration of the procedure without further incident. Pt. received a total of 220mg of Propofol and 80 mg ketamine. VSS. ASA3E. Pt care assumed by Wilmer LEAL with full report and oral airway in place for transfer to ICU post op. Stop Time: 17:30 Postprocedural Diagnosis: Chest pain,elevated Troponin, A-Flutter. SHARLENE SPENCE CRNA Jul 03, 2019 18:25
[2019-07-03] MEDS: APIXABAN 5 MG (ELIQUIS) TABLET PO SCH (20:30)
[2019-07-04] VITALS: BP 120/87
[2019-07-04] MEDS: ENOXAPARIN 60 MG/0.6 ML (LOVENOX) SYR SC SCH (00:39)
[2019-07-04 03:24] LABS: HEMOGLOBIN 13.4 G/DL (13.3-17.7); MEAN PLATELET VOLUME 10.1 FL (7.4-10.4); WHITE BLOOD COUNT 16.8 10^3/uL (4.3-11.0)
[2019-07-04 03:44] LABS: BUN/CREATININE RATIO 12; CALCIUM 8.6 MG/DL (8.5-10.1); CARBON DIOXIDE 26 MMOL/L (21-32); CHLORIDE 106 MMOL/L (98-107); CREATININE SERUM 0.84 MG/DL (0.60-1.30); GFR ESTIMATED > 60; GLUCOSE 138 MG/DL (70-105); POTASSIUM 3.9 MMOL/L (3.6-5.0); SODIUM 138 MMOL/L (135-145)
[2019-07-04 04:00] VITALS: BP 100/60
[2019-07-04 05:00] VITALS: BP 99/72
[2019-07-04 06:00] VITALS: BP 96/62
[2019-07-04 08:00] VITALS: BP 103/68
[2019-07-04] MEDS ORDERED: CLOPIDOGREL 75 MG (PLAVIX) TABLET PO SCH (09:00)
[2019-07-04] MEDS: DILTIAZEM 240 MG (CARDIZEM CD) CAP PO SCH (09:11)
[2019-07-04] MEDS: meTOprolol TARTRATE 25 MG (LOPRESSOR) TABLET PO SCH (09:12)
[2019-07-04] MEDS: ASPIRIN 81 MG CHEW (CHILDREN'S ASA) PO SCH (09:12)
[2019-07-04] MEDS: APIXABAN 5 MG (ELIQUIS) TABLET PO SCH (09:12)
[2019-07-04 12:00] VITALS: BP 99/70
[2019-07-04] MEDS ORDERED: ATOR80TA76 PO (12:04)
[2019-07-04] MEDS ORDERED: CLOP75TA28 PO (12:04)
--- NOTE | 2019-07-04 12:07 | Discharge Instructions ---
Discharge Instructions Reconcile Patient Problems Problems Reviewed?: Yes Discharge Medications New, Converted or Re-Newed RX: Transmitted to Pharmacy Patient Instructions Patient Instructions Take medications as prescribed. Pickup new medications at [facility]. Follow up with Dr. Fournier and establish at [facility]. Return to The Hospital For: Return with chest pain, shortness of breath, or if you feel like you're getting worse. Activity & Diet Discharge Diet: Low Sodium Diet Activity as Tolerated: Yes ZACKERY OSEGUERA MD Jul 04, 2019 12:07
[2019-07-04] MEDS: NS IV 1000 ML 1,000 ML IV SCH (13:36)
--- NOTE | 2019-07-04 13:36 | NUR ---
Pt taken to cab in wheelchair, dc in good condition and ambulatory. All belongings retained by pt.
--- NOTE | 2019-07-04 17:07 | Cardiology Progress Note ---
Cardiology SOAP Progress Note Subjective: No chest pain. Objective: I&O/Vital Signs 07/04/19 07/04/19 07/04/19 07/04/19 06:00 07:00 08:00 08:00 Pulse 60 67 62 Resp 14 14 B/P (MAP) 96/62 (73) 103/68 (80) Pulse Ox 97 99 O2 Delivery Room Air Room Air Room Air 07/04/19 07/04/19 07/04/19 08:00 09:12 12:00 Temp 36.2 36.3 Pulse 54 Resp 16 B/P (MAP) 99/70 (80) Pulse Ox 98 O2 Delivery Room Air 07/04/19 00:00 Intake Total 400 ml Output Total 108 ml Balance 292 ml Weight (Pounds): 145 Weight (Ounces): 5.0 Weight (Calculated Kilograms): 65.318057 Constitutional: appears stated age, AAO x 3; No apparent distress; well- developed, well-nourished Respiratory: chest is bilaterally symmetric, lungs clear to auscultation Cardiovascular: regular rate-rhythm, S1 and S2 Gastrointestional: soft, audible bowel sounds; No spleenomegaly Extremities: normal range of motion, non-tender, normal inspection; No clubbing, No cyanosis; no lower extremity edema bilateral; No significant edema Neurologic/Psychiatric: no motor/sensory deficits, alert, normal mood/affect, oriented x 3, power is 5/5 both on sides Skin: normal color; No rash, No ulcerations Results/Procedures: Labs Laboratory Tests 07/04/19 03:06: White Blood Count 16.8H, Red Blood Count 4.24L, Hemoglobin 13.4, Hematocrit 40, Mean Corpuscular Volume 93, Mean Corpuscular Hemoglobin 32, Mean Corpuscular Hemoglobin Concent 34, Red Cell Distribution Width 15.0H, Platelet Count 218, Mean Platelet Volume 10.1, Sodium Level 138, Potassium Level 3.9, Chloride Level 106, Carbon Dioxide Level 26, Anion Gap 6, Blood Urea Nitrogen 10, Creatinine 0.84, Estimat Glomerular Filtration Rate > 60, BUN/Creatinine Ratio 12, Glucose Level 138H, Calcium Level 8.6 A/P: Assessment/Dx: Non-STEMI, Typical atrial flutter, Cannabinoid use, Smoking Plan: NSTEMI, no further chest pain on my evaluation. Positive cardiac enzymes. Coronary angiography done yesterday 07/03/2019 showed small left coronary system. First diagonal artery had moderate to severe stenosis which was left alone. Severe proximal/mid RCA stenosis with ulcerated plaque. Severe distal RCA stenosis. PCI was complicated with dissection which was treated with drug- eluting stents. Stents placed from the ostium to the distal RCA. Total 5 stents. Excellent results at the end of the procedure with WILLIAM 3 flow and no residual stenosis. Compliance with Plavix was strongly recommended. Echocardiogram done 07/04/2019 was within normal limits. Typical atrial flutter, transesophageal echocardiogram assisted cardioversion . Patient is already on Pradaxa, Cardizem, metoprolol. Cannabinoid use, Smoking, smoking cessation was recommended. Okay to discharge to follow-up in office in 2-3 weeks. Thank you for your consultation. Please call me if you have any questions. Paris Fournier MD, FACP, FACC, FSCAI, FHRS, CCDS Interventional Cardiology Cardiac Electrophysiology Vascular Medicine and Endovascular Interventions Clinical Quality Measures AMI/AHF: ASA po Prior to arrival: Thai Hu MD Jul 04, 2019 17:07
--- NOTE | 2019-07-04 19:58 | Discharge Summary ---
Discharge Summary Hospital Course Was the Problem List Reviewed?: Yes Problems/Dx: (1) NSTEMI (non-ST elevated myocardial infarction) Status: Acute (2) Atrial flutter Status: Acute Hospital Course Date of Admission: Jul 02, 2019 at 14:25 Admission Diagnosis : Atrial flutter with RVR Family Physician/Provider: Monica,Local Physician Date of Discharge: 07/04/19 Discharge Diagnosis: Atrial flutter with RVR, NSTEMI Hospital Course: 48yoM with PMH atrial flutter who presented in atrial flutter with RVR. He was started on antiarrhythmics and later underwent KIEL cardioversion. He also had and elevated troponin and underwent left heart catheterization which showed multivessel disease which was stented. He was discharged on antiplatelet medications as well as rate control medications. He was instructed to establish care with a PCP. He should follow up with Dr. Fournier in 2-3 weeks. Labs and Pending Lab Test: Laboratory Tests 07/04/19 03:06: White Blood Count 16.8H, Red Blood Count 4.24L, Hemoglobin 13.4, Hematocrit 40, Mean Corpuscular Volume 93, Mean Corpuscular Hemoglobin 32, Mean Corpuscular Hemoglobin Concent 34, Red Cell Distribution Width 15.0H, Platelet Count 218, Mean Platelet Volume 10.1, Sodium Level 138, Potassium Level 3.9, Chloride Level 106, Carbon Dioxide Level 26, Anion Gap 6, Blood Urea Nitrogen 10, Creatinine 0.84, Estimat Glomerular Filtration Rate > 60, BUN/Creatinine Ratio 12, Glucose Level 138H, Calcium Level 8.6 Home Meds Active Atorvastatin Calcium 80 Mg Tablet 80 Mg PO HS 90 Days Clopidogrel (Clopidogrel Bisulfate) 75 Mg Tablet 75 Mg PO DAILY 90 Days Reported Aspirin EC (Aspirin) 81 Mg Tablet.dr 81 Mg PO BID Dilt-Xr (Diltiazem HCl) 240 Mg Cap.er.deg 240 Mg PO DAILY Proair Hfa (Albuterol Sulfate) 1 Puff Puff 2 Puff IH Q4H Combivent Respimat Inhal [place] (Albuterol/Ipratropium) 4 Gm Aero 2 Puff IH DAILY Pradaxa (Dabigatran Etexilate Mesylate) 150 Mg Capsule 150 Mg PO BID Metoprolol Tartrate 25 Mg Tablet 25 Mg PO BID Assessment/Pt Instructions See "discharge instructions" Discharge Planning: <30 minutes discharge planning Discharge Instructions Discharge Diet: Low Sodium Diet Activity as Tolerated: Yes Pneumonia Vaccine Order Indica: Yes Discharge Physical Examination Vital Signs Vital Signs Date Time Temp Pulse Resp B/P (MAP) Pulse Ox O2 Delivery O2 Flow Rate FiO2 07/04/19 12:00 54 16 99/70 (80) 98 Room Air 07/04/19 09:12 36.3 General Appearance: No Apparent Distress, WD/WN, Other (poorly groomed, unkempt) HEENT: PERRL/EOMI, Pharynx Normal Respiratory: Chest Non Tender, Lungs Clear, Normal Breath Sounds, No Respiratory Distress Cardiovascular: Regular Rate, Rhythm, No Edema, No Murmur Gastrointestinal: Normal Bowel Sounds, Non Tender, Soft Extremity: Normal Inspection, Non Tender, No Pedal Edema Skin: Normal Color, Warm/Dry Neurologic/Psychiatric: Alert, Oriented x3 Allergies: Coded Allergies: No Known Drug Allergies (Unverified , 07/05/13) Discharge Summary Date of Admission Jul 02, 2019 at 14:25 Date of Discharge Jul 04, 2019 at 13:36 Discharge Date: Jul 04, 2019 Discharge Time: 13:00 Admission Diagnosis AFlutter with RVR, NSTEMI Consults/Procedures Consulations Cardiology Procedures KIEL cardioversion, left heart catheterization Discharge Diagnosis Atrial flutter with RVR, NSTEMI (1) NSTEMI (non-ST elevated myocardial infarction) Status: Acute (2) Atrial flutter Status: Acute Clinical Quality Measures AMI/AHF: ASA po Prior to arrival: No DVT/VTE Risk/Contraindication: Risk Factor Score Per Nursin RFS Level Per Nursing on Admit: 2=Moderate ZACKERY OSEGUERA MD Jul 04, 2019 19:57
== END 2019-07-04 13:36 | disposition home or self-care (01) | DRG 246 ==
LOC: EDUNIT# 11:05 → ER 11:06 → 4TH 14:25 → ICU 07-03 17:38
PROVIDERS: ADMIT Internal Medicine; ATTEND Internal Medicine
PROC: 027037Z Dilation of Coronary Artery, One Artery with Four or More Drug-eluting Intraluminal Devices, Percutaneous Approach (ICD-10-PCS; principal; 2019-07-03)
PROC: 4A023N7 Measurement of Cardiac Sampling and Pressure, Left Heart, Percutaneous Approach (ICD-10-PCS; 2019-07-03)
PROC: B2111ZZ Fluoroscopy of Multiple Coronary Arteries using Low Osmolar Contrast (ICD-10-PCS; 2019-07-03)
PROC: B2151ZZ Fluoroscopy of Left Heart using Low Osmolar Contrast (ICD-10-PCS; 2019-07-03)
PROC: 5A2204Z Restoration of Cardiac Rhythm, Single (ICD-10-PCS; 2019-07-03)
DX: I21.4 Non-ST elevation (NSTEMI) myocardial infarction (principal); I25.42 Coronary artery dissection; I48.92 Unspecified atrial flutter; I25.10 Atherosclerotic heart disease of native coronary artery without angina pectoris; I48.91 Unspecified atrial fibrillation; I10 Essential (primary) hypertension; J44.9 Chronic obstructive pulmonary disease, unspecified; F41.9 Anxiety disorder, unspecified; F12.90 Cannabis use, unspecified, uncomplicated; F17.210 Nicotine dependence, cigarettes, uncomplicated; Z79.01 Long term (current) use of anticoagulants
CPT/HCPCS: 36415; 71045; 80048; 80053; 80061; 80306; 80320; 81000; 83690; 83735; 83874; 83880; 84484; 85025; 85027; 85347; 85610; 85730; 92960; 93005; 93041; 93306; 93312; 93320; 93325; 93458; 96372

== ENCOUNTER 2020-01-02 12:45 | Inpatient (IN) | payer MEDICAID ==
[~2020-01-02] VITALS: Ht 187.9 cm; Wt 65.5 kg
[2020-01-02] VITALS (8 sets, daily range): BP systolic 104–133; BP diastolic 51–76
[~2020-01-02 12:45] MED LIST changes: +ASPI-983 PO; +ATOR80TA76 PO; +CLOP75TA28 PO; +DILT240C47 PO; +HYDR-34 PO; -HYDR-3816 PO
[2020-01-02] MEDS ORDERED: LACTATED RINGERS 1,000 ML IV ONE ×2 (13:02→13:28)
[2020-01-02] MEDS ORDERED: fentaNYL INJECTION 100 MCG/2 ML AMP IVP STA ×2 (13:09→14:15)
--- NOTE | 2020-01-02 13:09 | ED General ---
General Stated Complaint: VOMITING Source of Information: Patient Exam Limitations: No Limitations History of Present Illness Date Seen by Provider: Jan 02, 2020 Time Seen by Provider: 12:48 Initial Comments Here with report of vomiting blood. Admits to binge drinking 2 days ago. Started vomiting blood today. Does have history of blood clot to the left leg and is complaining of left leg pain. Reports taking blood thinners. Reports it is quite weak. EMS reports that he was cold and they were unable to get blood pressure or IV. Patient is mentating well and answering questions and following commands. Denies recent injury otherwise. He states that he's been hot recently and does have a bit of a sweat going. EMS reports temperature of 94F. Denies diarrhea. Never had vomiting blood before. Timing/Duration: 4-6 Hours, Getting Worse Severity: Moderate, Severe Modifying Factors: worse with Eating; improves with Rest Associated Systoms: No Chest Pain, No Cough; Fever/Chills, Nausea/Vomiting; No Shortness of Air; Weakness Allergies and Home Medications Allergies Coded Allergies: No Known Drug Allergies (Unverified , 07/05/13) Home Medications Albuterol Sulfate 1 Puff Puff, 2 PUFF IH Q4H, (Reported) Albuterol/Ipratropium 4 Gm Aero, 2 PUFF IH DAILY, (Reported) Aspirin 81 Mg Tablet.dr, 81 MG PO BID, (Reported) Atorvastatin Calcium 80 Mg Tablet, 80 MG PO HS Prescribed by: ZACKERY OSEGUERA on 07/04/19 120 Clopidogrel Bisulfate 75 Mg Tablet, 75 MG PO DAILY Prescribed by: ZACKERY OSEGUERA on 07/04/19 1204 Dabigatran Etexilate Mesylate 150 Mg Capsule, 150 MG PO BID, (Reported) Diltiazem HCl 240 Mg Cap.er.deg, 240 MG PO DAILY, (Reported) Metoprolol Tartrate 25 Mg Tablet, 25 MG PO BID, (Reported) Patient Home Medication List Home Medication List Reviewed: Yes Review of Systems Review of Systems Constitutional: see HPI, chills, diaphoresis, fever, weakness EENTM: No ear pain, No nose congestion, No nose pain Respiratory: No cough, No short of breath Cardiovascular: No chest pain, No palpitations Gastrointestinal: No abdominal pain, No diarrhea; melena, nausea, vomiting Genitourinary: No dysuria, No pain Musculoskeletal: no symptoms reported Skin: no symptoms reported Psychiatric/Neurological: No Symptoms Reported All Other Systems Reviewed Negative Unless Noted: Yes Past Ylmpbnm-Iompeo-Ljgjav Hx Past Med/Social Hx: Reviewed Nursing Past Med/Soc Hx Patient Social History Alcohol Use: Occasionally Uses Recreational Drug Use: Yes Drug of Choice: cannibus Smoking Status: Current Everyday Smoker Type Used: Pipe 2nd Hand Smoke Exposure: Yes Recent Hopitalizations: No Immunizations Up To Date Tetanus Booster (TDap): Unknown Seasonal Allergies Seasonal Allergies: No Past Medical History Surgeries: No Respiratory: Yes COPD Cardiac: Yes (svt) Atrial Fibrillation, Hypertension Neurological: No Reproductive Disorders: No Genitourinary: No Gastrointestinal: No Musculoskeletal: No Endocrine: No HEENT: No Cancer: No Psychosocial: Yes Anxiety Integumentary: No Blood Disorders: No Adverse Reaction/Blood Tranf: No Family Medical History Alcoholism Alzheimer's disease Cardiovascular disease Colon cancer Diabetes mellitus Psychosocial problem Physical Exam-Suspected Sepsis Physical Exam Vital Signs Vital Signs - First Documented 01/02/20 14:34 Temp 34.8 Pulse 112 Resp 22 B/P (MAP) 136/53 (80) Pulse Ox 100 O2 Delivery Room Air Capillary Refill : Height, Weight, BMI Height: 6'2.00" Weight: 145lbs. 5.0oz. 65.244945qs; 17.56 BMI Method:Stated General Appearance: Anxious, Thin HEENT: PERRL/EOMI, Pharynx Normal Neck: Non Tender, Supple Respiratory: Lungs Clear, Normal Breath Sounds Cardiovascular: No Murmur, Tachycardia Gastrointestinal: No Organomegaly, No Pulsatile Mass, Non Tender, Soft Back: Normal Inspection, No CVA Tenderness, No Vertebral Tenderness Extremity: Normal Range of Motion, Non Tender Neurologic/Psychiatric: Alert, Oriented x3 Skin: normal color, warm/dry Focused Exam Lactate Level 01/02/20 12:50: Lactic Acid Level 7.61*H 01/02/20 15:09: Lactic Acid Level 10.60*H Lactic Acid Level Laboratory Tests Test 01/02/20 12:50 01/02/20 15:09 Lactic Acid Level 7.61 MMOL/L (0.50-2.00) *H 10.60 MMOL/L (0.50-2.00) *H Progress/Results/Core Measures Suspected Sepsis SIRS Temperature: Pulse: Respiratory Rate: Laboratory Tests 01/02/20 12:50: White Blood Count 28.0H Blood Pressure / Mean: 01/02/20 12:50: Lactic Acid Level 7.61*H 01/02/20 15:09: Lactic Acid Level 10.60*H Laboratory Tests 01/02/20 12:50: Creatinine 1.19, INR Comment 1.2, Platelet Count 267, Total Bilirubin 0.4 Results/Orders Lab Results Laboratory Tests Test 01/02/20 12:50 01/02/20 12:59 01/02/20 15:09 Range/Units White Blood Count 28.0 H 4.3-11.0 10^3/uL Red Blood Count 3.68 L 4.35-5.85 10^6/uL Hemoglobin 11.4 L 13.3-17.7 G/DL Hematocrit 34 L 40-54 % Mean Corpuscular Volume 93 80-99 FL Mean Corpuscular Hemoglobin 31 25-34 PG Mean Corpuscular Hemoglobin Concent 33 32-36 G/DL Red Cell Distribution Width 14.7 H 10.0-14.5 % Platelet Count 267 130-400 10^3/uL Mean Platelet Volume 10.5 H 7.4-10.4 FL Neutrophils (%) (Auto) 84 H 42-75 % Lymphocytes (%) (Auto) 11 L 12-44 % Monocytes (%) (Auto) 5 0-12 % Eosinophils (%) (Auto) 0 0-10 % Basophils (%) (Auto) 0 0-10 % Neutrophils # (Auto) 23.5 H 1.8-7.8 X 10^3 Lymphocytes # (Auto) 3.1 1.0-4.0 X 10^3 Monocytes # (Auto) 1.4 H 0.0-1.0 X 10^3 Eosinophils # (Auto) 0.1 0.0-0.3 10^3/uL Basophils # (Auto) 0.1 0.0-0.1 10^3/uL Neutrophils % (Manual) 84 % Lymphocytes % (Manual) 12 % Monocytes % (Manual) 4 % Polychromasia SLIGHT Caputa Cells SLIGHT Elliptocytes SLIGHT Prothrombin Time 15.5 H 12.2-14.7 SEC INR Comment 1.2 0.8-1.4 Activated Partial Thromboplast Time 28 24-35 SEC Sodium Level 142 135-145 MMOL/L Potassium Level 4.1 3.6-5.0 MMOL/L Chloride Level 110 H 98-107 MMOL/L Carbon Dioxide Level 17 L 21-32 MMOL/L Anion Gap 15 H 5-14 MMOL/L Blood Urea Nitrogen 64 H 7-18 MG/DL Creatinine 1.19 0.60-1.30 MG/DL Estimat Glomerular Filtration Rate > 60 BUN/Creatinine Ratio 54 Glucose Level 226 H 70-105 MG/DL Lactic Acid Level 7.61 *H 10.60 *H 0.50-2.00 MMOL/L Calcium Level 8.8 8.5-10.1 MG/DL Corrected Calcium 8.7 8.5-10.1 MG/DL Total Bilirubin 0.4 0.1-1.0 MG/DL Aspartate Amino Transf (AST/SGOT) 14 5-34 U/L Alanine Aminotransferase (ALT/SGPT) 26 0-55 U/L Alkaline Phosphatase 54 40-136 U/L C-Reactive Protein High Sensitivity 0.38 0.00-0.50 MG/DL Total Protein 6.8 6.4-8.2 GM/DL Albumin 4.1 3.2-4.5 GM/DL Salicylates Level < 5.0 L 5.0-20.0 MG/DL Acetaminophen Level < 10 L 10-30 UG/ML Serum Alcohol < 10 <10 MG/DL Glucometer 224 H 70-110 MG/DL Urine Color YELLOW Urine Clarity CLEAR Urine pH 6.0 5-9 Urine Specific [place] 1.020 1.016-1.022 Urine Protein NEGATIVE NEGATIVE Urine Glucose (UA) NEGATIVE NEGATIVE Urine Ketones 1+ H NEGATIVE Urine Nitrite NEGATIVE NEGATIVE Urine Bilirubin NEGATIVE NEGATIVE Urine Urobilinogen 0.2 < = 1.0 MG/DL Urine Leukocyte Esterase NEGATIVE NEGATIVE Urine RBC (Auto) NEGATIVE NEGATIVE Urine RBC NONE /HPF Urine WBC NONE /HPF Urine Squamous Epithelial Cells NONE /HPF Urine Crystals NONE /LPF Urine Bacteria NEGATIVE /HPF Urine Casts PRESENT /LPF Urine Hyaline Casts 5-10 H /LPF Urine Mucus NEGATIVE /LPF Urine Culture Indicated CULTURE PENDING Urine Opiates Screen NEGATIVE NEGATIVE Urine Oxycodone Screen NEGATIVE NEGATIVE Urine Methadone Screen NEGATIVE NEGATIVE Urine Propoxyphene Screen NEGATIVE NEGATIVE Urine Barbiturates Screen NEGATIVE NEGATIVE Ur Tricyclic Antidepressants Screen NEGATIVE NEGATIVE Urine Phencyclidine Screen NEGATIVE NEGATIVE Urine Amphetamines Screen NEGATIVE NEGATIVE Urine Methamphetamines Screen NEGATIVE NEGATIVE Urine Benzodiazepines Screen NEGATIVE NEGATIVE Urine Cocaine Screen NEGATIVE NEGATIVE Urine Cannabinoids Screen POSITIVE H NEGATIVE Micro Results Microbiology 01/02/20 Influenza Types A,B Antigen (MICHELLE) - Final, Complete My Orders Orders - LUCIANO DEL CASTILLO MD Cbc With Automated Diff (01/02/20 13:02) Comprehensive Metabolic Panel (01/02/20 13:02) Blood Culture (01/02/20 13:02) Sputum Culture (01/02/20 13:02) Urinalysis (01/02/20 13:02) Urine Culture (01/02/20 13:02) Protime With Inr (01/02/20 13:02) Partial Thromboplastin Time (01/02/20 13:02) Chest 1 View, Ap/Pa Only (01/02/20 13:02) Ed Iv/Invasive Line Start (01/02/20 13:02) Ed Iv/Invasive Line Start (01/02/20 13:02) Ekg Tracing (01/02/20 13:02) Vital Signs Adult Sepsis Patie Q15M (01/02/20 13:02) O2 (01/02/20 13:02) Remove Rings In Anticipation O (01/02/20 13:02) Lactic Acid Analyzer (01/02/20 13:02) Influenza A And B Antigens (01/02/20 13:02) Ed Iv/Invasive Line Start (01/02/20 13:02) Lactated Ringers (Lr 1000 Ml Iv Solution (01/02/20 13:02) Hs C Reactive Protein (01/02/20 13:02) Red Cells Leukocytes Reduced (01/02/20 13:02) Pantoprazole Injection (Protonix Injecti (01/02/20 13:15) Ns (Ivpb) (Sodium C... W/Pantoprazole In (01/02/20 13:15) Type And Screen (01/02/20 13:02) Fentanyl Injection (Sublimaze Injection (01/02/20 13:09) Manual Differential (01/02/20 12:50) Ed Iv/Invasive Line Start (01/02/20 13:28) Lactated Ringers (Lr 1000 Ml Iv Solution (01/02/20 13:28) Ct Abdomen/Pelvis W (01/02/20 14:10) Fentanyl Injection (Sublimaze Injection (01/02/20 14:15) Iohexol Injection (Omnipaque 350 Mg/Ml 1 (01/02/20 14:15) Received Contrast (Hold Metformin- Contr (01/02/20 14:15) Ns (Ivpb) (Sodium Chloride 0.9% Ivpb Bag (01/02/20 14:15) Sodium Chloride Flush (Catheter Flush Sy (01/02/20 14:15) Acetaminophen (01/02/20 14:20) Alcohol (01/02/20 14:20) Drug Screen Stat (Urine) (01/02/20 14:20) Salicylate (01/02/20 14:20) Ekg Tracing (01/02/20 15:03) Diltiazem Drip Pre-Mix (Cardizem Drip Pr (01/02/20 15:15) Diltiazem Injection (Cardizem Injection) (01/02/20 15:15) Influenza A And B Antigens (01/02/20 15:45) Medications Given in ED Current Medications Medications Dose Ordered Sig/Wing Route Start Time Stop Time Status Last Admin Dose Admin Iohexol 100 ml ONCE ONCE IV 01/02/20 14:15 01/02/20 14:20 DC 01/02/20 14:49 100 ML Lactated Ringer's 1,000 ml @ 0 mls/hr Q0M ONCE IV 01/02/20 13:02 01/02/20 13:07 DC 01/02/20 13:32 1,000 MLS/HR Lactated Ringer's 1,000 ml @ 0 mls/hr Q0M ONCE IV 01/02/20 13:28 01/02/20 13:29 DC 01/02/20 15:14 1,000 MLS/HR Pantoprazole 80 mg ONCE ONCE IV 01/02/20 13:15 01/02/20 13:16 DC 01/02/20 13:33 80 MG Sodium Chloride 100 ml ONCE ONCE IV 01/02/20 14:15 01/02/20 14:20 DC 01/02/20 14:49 100 ML Vital Signs/I&O 01/02/20 14:34 Temp 34.8 Pulse 112 Resp 22 B/P (MAP) 136/53 (80) Pulse Ox 100 O2 Delivery Room Air Capillary Refill : Progress Note : Progress Note Seen and evaluated. Initiated septic workup due to the hypothermia and tachycardia. Patient does have findings of vomiting dark red blood. Type and cross for 2 units to hold area Protonix 80 mg IV and 8 mg hour drip initiated. LR 1 L bolus. Monitor patient. 1327: Lactic acid greater than 7. Hemoglobin okay at this point. Still have concerns related to vomiting blood but we have 2 units of blood on hold for him if needed. LR 1 L bolus repeated which will see the 30 mL/kg bolus. Monitor patient. 1519: I have discussed the case with Dr. Oseguera and he accepts patient for admission, inpatient status. I discussed the case with Dr. Sky, surgeon on-call and he will see the patient as well. I discuss ed the case with Dr. Massey and he will see the patient for atrial fibrillation with RVR management. Patient did have episode of atrial fibrillation with rapid ventricular response rate of 174 that was caught on monitor and EKG. He converted after EKG obtained on his own without medications. In discussion with the patient, he has not taken his diltiazem today and we will go ahead and initiate Cardizem 10 mg IV bolus and drip at 10 mg per hour. This will be titrated to heart rate and blood pressure. Patient has rather significant elevation of lactic acid. CT abdomen and pelvis was obtained and this was negative for perforation. He does have some distal constipation. We will hold patient nothing by mouth and repeat H&H at 1900. Admit, inpatient status. Patient and family agree with plan. Current heart rate 110s to 120s and patient doing well better. I attest to focused exam at this time. 1542: I did discuss the case with Dr. Lewis and he will see the patient in consult as well. Lactic acid has increased. We will continue IV fluids in the ICU. ECG Initial ECG Impression Date: Jan 02, 2020 Initial ECG Impression Time: 13:08 Initial ECG Rate: 120 Initial ECG Rhythm: S.Tach Comment Sinus tachycardia with left atrial abnormality. Rightward axis. No evidence of ST elevation RI. Change from previous of 07/02/19 which was atrial flutter. Interpreted by me. EKG : EKG Time: 15:01 Rate: 174 Rhythm: A Fib/Flutter Comment Atrial fibrillation with rapid ventricular rate. No evidence of ST elevation RI. Change from EKG done earlier today. Interpreted by me. Diagnostic Imaging Diagonstic Imaging: Xray Plain Films/CT/US/NM/MRI: chest [facility] [place] [place] NAME: AGUSTINA MORROW [facility] REC#: [id number] PT STATUS: REG ER : 1970 PHYSICIAN: LUCIANO DEL CASTILLO MD ADMIT DATE: 01/02/20/ER Draft Date of Exam:01/02/20 CHEST 1 VIEW, AP/PA ONLY HISTORY: Vomiting, diaphoresis. COMPARISON: 07/02/2019 TECHNIQUE: Single frontal view of the chest. FINDINGS: Lung volumes are large. No focal consolidation is seen. There is no pleural effusion or pneumothorax. The cardiac silhouette is normal in size. IMPRESSION: 1. Large lung volumes with no focal consolidation seen. Dictated on workstation # [id number] Dict: 01/02/20 1337 Trans: 01/02/20 1340 [facility] [id number] Interpreted by: JOSE EDDY MD Electronically signed by: Diagonstic Imaging: CT Plain Films/CT/US/NM/MRI: abdomen, pelvis Comments [facility] [place], [place] NAME: AGUSTINA MORROW [facility] REC#: [id number] PT STATUS: REG ER : 1970 PHYSICIAN: LUCIANO DEL CASTILLO MD ADMIT DATE: 01/02/20/ER Signed Date of Exam:01/02/20 CT ABDOMEN/PELVIS W EXAMINATION: CT Abdomen and Pelvis with intravenous contrast. TECHNIQUE: Multiple contiguous axial images were obtained through the abdomen and pelvis after the uneventful administration of intravenous contrast. All CT scans use one or more of the following dose optimizing techniques: automated exposure control, MA and/or KvP adjustment based on a patient size and exam type, or iterative reconstruction. HISTORY: Upper abdominal pain with nausea and vomiting for 2 days. COMPARISON: None available. FINDINGS: The heart is unremarkable. The included lung bases are clear. The liver, spleen, pancreas, adrenal glands, and kidneys have a normal appearance. Transient hepatic attenuation differences are visualized on initial imaging which normalizes on delayed imaging. There is no pathologically enlarged mesenteric or retroperitoneal adenopathy. The bowel loops are nondilated. The appendix is visualized in the right lower quadrant and has a normal appearance. A moderate amount of stool is seen in the sigmoid colon and rectum. There is no free fluid or free air. No acute osseous abnormalities. There is calcified aortic and iliac atherosclerotic plaque without aneurysm. Ureters and bladder are grossly normal. There is no free air, loculated collection, or adenopathy in the pelvis. IMPRESSION: 1. Moderate amount of stool in the sigmoid colon and rectum, which can be seen with constipation. 2. Normal appendix. No evidence of bowel obstruction. No free fluid or free air. Dictated by: Dictated on workstation # [id number] Dict: 01/02/20 1459 Trans: 01/02/[address] [facility] [id number] Interpreted by: TAM ARMENTA DO Electronically signed by: TAM ARMENTA DO 01/02/20 1502 Departure Communication (Admissions) Time/Spoke to Admitting Phy: 15:10 Time/Spoke to Consulting Phy: 15:13 Impression Primary Impression: Atrial fibrillation with rapid ventricular response Additional Impressions: Hematemesis Qualified Codes: K92.0 - Hematemesis Lactic acidosis Disposition: ADMITTED INPATIENT Condition: Critical Admissions Decision to Admit Reason: Admit from ER (General) Decision to Admit/Date: Jan 02, 2020 Time/Decision to Admit Time: 15:10 Departure-Patient Inst. Referrals: NO,LOCAL PHYSICIAN (PCP/Family) Primary Care Physician LUCIANO DEL CASTILLO MD Jan 02, 2020 13:09
[2020-01-02] MEDS ORDERED: PANTOPRAZOLE INJECTION 200 MG in NS (IVPB) 100 ML IV SCH (13:15)
[2020-01-02] MEDS ORDERED: PANTOPRAZOLE 40 MG (PROTONIX) VIAL IV ONE (13:15)
[2020-01-02 13:17] LABS: BASOPHILS # (AUTO) 0.1 10^3/uL (0.0-0.1); BASOPHILS % (AUTO) 0 % (0-10); EOSINOPHILS # (AUTO) 0.1 10^3/uL (0.0-0.3); EOSINOPHILS % (AUTO) 0 % (0-10); HEMATOCRIT 34 % (40-54); HEMOGLOBIN 11.4 G/DL (13.3-17.7); LYMPHOCYTES # (AUTO) 3.1 X 10^3 (1.0-4.0); LYMPHOCYTES % (AUTO) 11 % (12-44); MEAN CORPUSCULAR HEMOGLOBIN 31 PG (25-34); MEAN CORPUSCULAR HGB CONC 33 G/DL (32-36); MEAN CORPUSCULAR VOLUME 93 FL (80-99); MEAN PLATELET VOLUME 10.5 FL (7.4-10.4); MONOCYTES # (AUTO) 1.4 X 10^3 (0.0-1.0); MONOCYTES % (AUTO) 5 % (0-12); NEUTROPHILS # (AUTO) 23.5 X 10^3 (1.8-7.8); NEUTROPHILS % (AUTO) 84 % (42-75); PLATELET COUNT 267 10^3/uL (130-400); RED CELL DISTRIBUTION WIDTH 14.7 % (10.0-14.5)
[2020-01-02 13:23] LABS: INR 1.2 (0.8-1.4); PROTHROMBIN TIME PATIENT 15.5 SEC (12.2-14.7)
[2020-01-02 13:29] LABS: ALANINE AMINOTRANSFERASE 26 U/L (0-55); ALBUMIN 4.1 GM/DL (3.2-4.5); ALKALINE PHOSPHATASE 54 U/L (40-136); BILIRUBIN,TOTAL 0.4 MG/DL (0.1-1.0); BUN/CREATININE RATIO 54; CALCIUM 8.8 MG/DL (8.5-10.1); CARBON DIOXIDE 17 MMOL/L (21-32); CHLORIDE 110 MMOL/L (98-107); CREATININE SERUM 1.19 MG/DL (0.60-1.30); GFR ESTIMATED > 60; GLUCOSE 226 MG/DL (70-105); POTASSIUM 4.1 MMOL/L (3.6-5.0); SODIUM 142 MMOL/L (135-145); TOTAL PROTEIN 6.8 GM/DL (6.4-8.2)
--- NOTE | 2020-01-02 13:30 | NUR ---
BP 80/58 due to contracture of arm.
--- NOTE | 2020-01-02 13:40 | Diagnostic Imaging Report ---
HISTORY: Vomiting, diaphoresis. COMPARISON: 07/02/2019 TECHNIQUE: Single frontal view of the chest. FINDINGS: Lung volumes are large. No focal consolidation is seen. There is no pleural effusion or pneumothorax. The cardiac silhouette is normal in size. IMPRESSION: 1. Large lung volumes with no focal consolidation seen. Dictated by: Dictated on workstation # [id number]
[2020-01-02 13:49] LABS: ELLIPT/OVALOCYTES SLIGHT; LYMPHOCYTES % (MANUAL) 12 %; MONOCYTES % (MANUAL) 4 %; NEUTROPHILS % (MANUAL) 84 %; POLYCHROMASIA SLIGHT
[2020-01-02] MEDS ORDERED: CATHETER FLUSH 10 ML SYR IV PRN (14:15)
[2020-01-02] MEDS ORDERED: IOHEXOL 350 MG/ML 100 ML (OMNIPAQUE 350) VIAL IV ONE (14:15)
[2020-01-02] MEDS ORDERED: HOLD METFORMIN - RECEIVED CONTRAST 20 ML VIAL IV SCH (14:15)
[2020-01-02] MEDS ORDERED: NS 100 ML (IVPB) BAG IV ONE (14:15)
[2020-01-02 14:27] LABS: BURR CELLS SLIGHT
[2020-01-02 14:36] LABS: SALICYLATE < 5.0 MG/DL (5.0-20.0)
[2020-01-02 14:45] LABS: ACETAMINOPHEN < 10 UG/ML (10-30)
--- NOTE | 2020-01-02 15:03 | Diagnostic Imaging Report ---
EXAMINATION: CT Abdomen and Pelvis with intravenous contrast. TECHNIQUE: Multiple contiguous axial images were obtained through the abdomen and pelvis after the uneventful administration of intravenous contrast. All CT scans use one or more of the following dose optimizing techniques: automated exposure control, MA and/or KvP adjustment based on a patient size and exam type, or iterative reconstruction. HISTORY: Upper abdominal pain with nausea and vomiting for 2 days. COMPARISON: None available. FINDINGS: The heart is unremarkable. The included lung bases are clear. The liver, spleen, pancreas, adrenal glands, and kidneys have a normal appearance. Transient hepatic attenuation differences are visualized on initial imaging which normalizes on delayed imaging. There is no pathologically enlarged mesenteric or retroperitoneal adenopathy. The bowel loops are nondilated. The appendix is visualized in the right lower quadrant and has a normal appearance. A moderate amount of stool is seen in the sigmoid colon and rectum. There is no free fluid or free air. No acute osseous abnormalities. There is calcified aortic and iliac atherosclerotic plaque without aneurysm. Ureters and bladder are grossly normal. There is no free air, loculated collection, or adenopathy in the pelvis. IMPRESSION: 1. Moderate amount of stool in the sigmoid colon and rectum, which can be seen with constipation. 2. Normal appendix. No evidence of bowel obstruction. No free fluid or free air. Dictated by: Dictated on workstation # [id number]
[2020-01-02] MEDS ORDERED: dilTIAZem DRIP PRE-MIX 125 ML IV SCH (15:15)
[2020-01-02] MEDS ORDERED: ADENOSINE 6 MG/2 ML (ADENOCARD) VIAL IV ONE ×2 (15:15)
[2020-01-02 15:22] LABS: BILIRUBIN,URINE NEGATIVE (NEGATIVE); CLARITY,URINE CLEAR; COLOR,URINE YELLOW; GLUCOSE, URINE (UA) NEGATIVE (NEGATIVE); KETONES,URINE 1+ (NEGATIVE); LEUKOCYTE ESTERASE ,URINE NEGATIVE (NEGATIVE); NITRITE,URINE NEGATIVE (NEGATIVE); PROTEIN,URINE NEGATIVE (NEGATIVE)
[2020-01-02 15:34] LABS: BACTERIA,URINE NEGATIVE /HPF
[2020-01-02 15:36] LABS: AMPHETAMINE SCREEN, URINE NEGATIVE (NEGATIVE); BARBITURATE SCREEN URINE NEGATIVE (NEGATIVE); BENZODIAZEPINES SCREEN URINE NEGATIVE (NEGATIVE); CANNABINOID SCREEN, URINE POSITIVE (NEGATIVE); COCAINE SCREEN URINE NEGATIVE (NEGATIVE); METHADONE STAT NEGATIVE (NEGATIVE); METHAMPHETAMINE SCREEN URINE S NEGATIVE (NEGATIVE); OPIATE SCREEN URINE NEGATIVE (NEGATIVE); OXYCODONE STAT NEGATIVE (NEGATIVE); PROPOXYPHENE STAT NEGATIVE (NEGATIVE); TRICYCLIC ANTIDEPRESSANTS SCRE NEGATIVE (NEGATIVE)
--- OUTSIDE RECORDS SUMMARY | 2020-01-02 16:46 | XMS REPORT | Continuity of Care Document ---
Author Organization Unknown Address Unknown Phone Unavailable Allergies Active Description Code Type Severity Reaction Onset Reported/Identified Relationship to Patient Clinical Status Yes NO KNOWN DRUG ALLERGIES UNKNOWN UNKNOWN Yes No Known Drug Allergies [id number] Drug Allergy Unknown N/A 07/05/2013 Medications Medication Packaging Start Date St op Date Route Dosage Sig Diltiazem 120mg,extended release cap (CARD IZEM) 06/01/2019 06/01/2019 [id number] Problems Date Dx Coded Attending Type Code Diagnosis Diagnosed By 01/05/2019 ALONA JONES LARA Ot F12.90 CANNABIS USE, UNSPECIFIED, UNCOMPLICATED 01/05/2019 ALONA JONES LARA Ot F17.21 0 NICOTINE DEPENDENCE, CIGARETTES, UNCOMPL 01/05/2019 ALONA JONES LARA Ot I10 ESSENTIAL (PRIMARY) HYPERTENSION 01/05/2019 ALONA JONES LARA Ot I48.92 UNSPECIFIED ATRIAL FLUTTER 01/05/2019 ALONA JONES LARA Ot R00.0 TACHYCARDIA, UNSPECIFIED 01/05/2019 ALONA DO LARA Ot R00.2 PALPITATIONS 01/05/2019 ALONA JONES LARA Ot 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 01/05/2019 ALONA JONSE LARA Ot Z91.19 PATIENT'S NONCOMPLIANCE W [facility] 01/05/2019 ALONA JONES LARA Ot F12.90 CANNABIS USE, UNSPECIFIED, UNCOMPLICATED 01/05/2019 ALONA JONES LARA Ot F17.21 0 NICOTINE DEPENDENCE, CIGARETTES, UNCOMPL 01/05/2019 ALONA DO LARA Ot I10 ESSENTIAL (PRIMARY) HYPERTENSION 01/05/2019 ALONA JONES LARA Ot I48.92 UNSPECIFIED ATRIAL FLUTTER 01/05/2019 ALONA JONES LARA Ot R00.0 TACHYCARDIA, UNSPECIFIED 01/05/2019 SAGE DO LARA Ot R00.2 PALPITATIONS 01/05/2019 ALONA JONES LARA Ot 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 90 CANNABIS USE, UNSPECIFIED, UNCOMPLICATED 07/04/2019 ZACKERY OSEGUERA MD Ot F17.210 NICOTINE DEPENDENCE, CIGARETTES, UNCOMPL 07/04/2019 ZACKERY OSEGUERA MD Ot F41. 9 ANXIETY DISORDER, UNSPECIFIED 07/04/2019 ZACKERY OSEGUERA MD Ot I10 ESSENTIAL (PRIMARY) HYPERTENSION 07/04/2019 ZACKERY OSEGUERA MD Ot I21. 4 NON-ST ELEVATION (NSTEMI) MYOCARDIAL INF 07/04/2019 ZACKERY OSEGUERA MD Ot I25. 10 ATHSCL HEART DISEASE OF [place] CORONARY 07/04/2019 ZACKERY OSEGUERA MD Ot I25. 42 CORONARY ARTERY DISSECTION 07/04/2019 ZACKERY OSEGUERA MD Ot I48. 91 UNSPECIFIED ATRIAL FIBRILLATION 07/04/2019 ZACKERY OSEGUERA MD Ot I48. 92 UNSPECIFIED ATRIAL FLUTTER 07/04/2019 ZACKERY OSEGUERA MD Ot J44. 9 CHRONIC OBSTRUCTIVE PULMONARY DISEASE, U 07/04/2019 ZACKERY OSEGUERA MD Ot Z79. 01 [facility] (CURRENT) USE OF ANTICOAGULANT Procedures Code Description Performed By Per formed On [id number] DI LATION OF 1 COR ART WITH 4 DRUG-ELUT, 07/03/2019 [id number] ME ASURE OF CARDIAC SAMPL PRESSURE, L H 07/03/2019 [id number] RE STORATION OF CARDIAC RHYTHM, SINGLE 07/03/2019 [id number] FL UOROSCOPY OF MULT COR ART USING L OSM 07/03/2019 [id number] FL UOROSCOPY OF LEFT HEART USING LOW OSMO 07/03/2019 Results Test Result Range Complete blood count (CBC) with automate d white blood cell (WBC) differential - 01/04/19 23:45 Blood leukocytes automated count (number/volume) 18.6 10*3/uL 4.3-11.0 Blood erythrocytes automated count (number/volume) 5.31 10*6/uL 4.35-5.85 Venous blood hemoglobin measurement (mass/volume) 16.7 g/dL 13.3-17.7 Blood hematocrit (volume fraction) 47 % 40-54 Automated erythrocyte mean corpuscular volume 89 [ foz_us] 80-99 Automated erythrocyte mean corpuscular h emoglobin (mass per erythrocyte) 32 pg 25-34 Automated erythrocyte mean corpuscular h emoglobin concentration measurement (mass/volume) 36 g/dL 32-36 Automated erythrocyte distribution width ratio 14. 3 % 10.0- 14.5 Automated blood platelet count (count/volume) 421 10*3/uL 130-400 Automated blood platelet mean volume measurement 9.4 [foz_us] 7.4-10.4 Automated blood neutrophils/100 leukocytes 83 % 42-75 Automated blood lymphocytes/100 leukocytes 8 % 12-44 Blood monocytes/100 leukocytes 9 % 0-12 Automated blood eosinophils/100 leukocytes 0 % 0-10 Automated blood basophils/100 leukocytes 0 % 0-10 Blood neutrophils automated count (number/volume) 15.4 10*3 1.8-7.8 Blood lymphocytes automated count (number/volume) 1.4 10*3 1.0-4.0 Blood monocytes automated count (number/volume) 1. 7 10*3 0.0-1.0 Automated eosinophil count 0.0 10*3/uL 0 .0-0.3 Automated blood basophil count (count/volume) 0.0 10*3/uL 0.0-0.1 Comprehensive metabolic panel - 01/04/19 23:45 Serum or plasma sodium measurement (moles/volume) 138 mmol/L 135-145 Serum or plasma potassium measurement (moles/volume) 4.2 mmol/L 3.6-5.0 Serum or plasma chloride measurement (moles/volume) 105 mmol/L 98-107 Carbon dioxide 20 mmol/L 21-32 Serum or plasma anion gap determination (moles/volume) 13 mmol/L 5-14 Serum or plasma urea nitrogen measurement (mass/volume ) 18 mg/dL 7-18 Serum or plasma creatinine measurement (mass/volume) 1.20 mg/dL 0.60-1.30 Serum or plasma urea nitrogen/creatinine mass ratio 15 NRG Serum or plasma creatinine measurement w ith calculation of estimated glomerular filtration rate > NRG Serum or plasma glucose measurement (mass/volume) 128 mg/dL 70-105 Serum or plasma calcium measurement (mass/volume) 9.0 mg/dL 8.5-10.1 Serum or plasma total bilirubin measurement (mass/volu me) 0.4 mg/dL 0.1-1.0 Serum or plasma alkaline phosphatase kathya surement (enzymatic activity/volume) 77 U/L 40-136 Serum or plasma aspartate aminotransfera se measurement (enzymatic activity/volume) 14 U/L 5-34 Serum or plasma alanine aminotransferase measurement (enzymatic activity/volume) 18 U/L 0-55 Serum or plasma protein measurement (mass/volume) 7.7 g/dL 6.4-8.2 Serum or plasma albumin measurement (mass/volume) 4.4 g/dL 3.2-4.5 CALCIUM CORRECTED 8.7 mg/dL 8.5-10.1 Magnesium - 01/04/19 23:45 Magnesium 2.3 mg/dL 1.8-2.4 PT panel in platelet poor plasma by coag ulation assay - 01/04/19 23:45 Prothrombin time (PT) in platelet poor plasma by coagu lation assay 14.6 s 12.2-14.7 INR in platelet poor plasma or blood by coagulation as say 1.1 0.8-1.4 Activated partial thromboplastin time (a PTT) in platelet poor plasma bycoagulation assay - 01/04/19 23:45 Activated partial thromboplastin time (a PTT) in platelet poor plasma bycoagulation assay 41 s 24-35 Serum or plasma troponin i.cardiac measu rement (mass/volume) - 01/04/19 23:45 Serum or plasma troponin i.cardiac measurement (mass/v olume) < ng/mL <0.028 Myoglobin, serum - 01/04/19 23:45 Myoglobin, serum 23.1 ng/mL 10.0-92.0 Blood manual differential performed dete ction - 01/04/19 23:45 Blood monocytes/100 leukocytes 7 % NRG Manual blood segmented neutrophils/100 leukocytes 77 % NRG Blood band neutrophils/100 leukocytes 2 % NRG Manual blood lymphocytes/100 leukocytes 14 % NRG Blood erythrocyte morphology finding identification NORMAL NRG Serum or plasma thyrotropin measurement by detection limit <=0.05 miu/l (units/volume) - 01/04/19 23:45 Serum or plasma thyrotropin measurement by detection limit <=0.05 miu/l (units/volume) 1.67 u[iU]/mL 0.35-4.94 Complete urinalysis with reflex to cultu re - 01/05/19 00:55 Urine color determination YELLOW NRG Urine clarity determination CLEAR NR G Urine pH measurement by test strip 6 5-9 Specific gravity of urine by test strip 1.020 1.016-1.022 Urine protein assay by test strip, semi-quantitative 1+ NEGATIVE Urine glucose detection by automated test strip NE GATIVE NEGATIVE Erythrocytes detection in urine sediment by light micr oscopy NEGATIVE NEGATIVE Urine ketones detection by automated test strip NE GATIVE NEGATIVE Urine nitrite detection by test strip NEGATIVE NEGATIVE Urine total bilirubin detection by test strip NEGA TIVE NEGATIVE Urine urobilinogen measurement by automated test strip (mass/volume) 1 mg/dL NORMAL Urine leukocyte esterase detection by dipstick 1+ NEGATIVE Automated urine sediment erythrocyte cou nt by microscopy (number/high power field) NONE NRG Automated urine sediment leukocyte count by microscopy (number/high power field) NONE NRG Bacteria detection in urine sediment by light microsco py NEGATIVE NRG Squamous epithelial cells detection in u rine sediment by light microscopy 0-2 NRG Crystals detection in urine sediment by light microsco py NONE NRG Casts detection in urine sediment by light microscopy PRESENT NRG Mucus detection in urine sediment by light microscopy SMALL NRG Complete urinalysis with reflex to culture NO NRG Hyaline casts detection in urine sediment by light diandra roscopy 2-5 NRG Serum or plasma C reactive protein measu rement (mass/volume) - 01/05/19 01:40 Serum or plasma C reactive protein measurement (mass/v olume) 1.07 mg/dL 0.00-0.50 Influenza virus A and B antigen detectio n - 01/05/19 02:50 FLU RESULT NEGATIVE FOR INFLUENZA A AND B ANTIGENS BY IA NRG Urine drug screening test - 01/05/19 05: 05 Urine phencyclidine detection by screening method NEGATIVE NEGATIVE Urine benzodiazepines detection by screening method NEGATIVE NEGATIVE Urine cocaine detection NEGATIVE NEGATI VE Urine amphetamines detection by screening method N EGATIVE NEGATIVE Urine methamphetamine detection by screening method NEGATIVE NEGATIVE Urine cannabinoids detection by screening method P OSITIVE NEGATIVE Urine opiates detection by screening method NEGATI VE NEGATIVE Urine barbiturates detection NEGATIVE N EGATIVE Screening urine tricyclic antidepressants detection NEGATIVE NEGATIVE Urine methadone detection by screening method NEGA TIVE NEGATIVE Urine oxycodone detection NEGATIVE NEGA TIVE Urine propoxyphene detection NEGATIVE N EGATIVE Comprehensive Metabolic Panel - 06/01/19 21:20 Albumin 4.2 g/dL 3.6-5.1 ALP 70 U/L 35-130 ALT 29 U/L 6-45 Anion Gap 14 6-14 AST 17 U/L 2-40 BUN 15 mg/dL 5-25 Calcium 9.3 mg/dL 8.3-10.4 Chloride 109 mmol/L 95-114 CO2 21 mEq/L 22-33 Creat 0.83 mg/dL 0.50-1.50 eGFR 99 mL/min/1.73m2 >59 Globulin 2.8 g/dL 2.3-3.5 Glucose 147 mg/dL 70-110 Osmo 292 280-295 Potassium 4.0 mmol/L 3.5-5.3 Sodium 140 mmol/L 134-148 TBil 0.4 mg/dL 0.2-1.2 TP 7.0 g/dL 6.0-8.3 Thyroid Stimulating Hormone - 06/01/19 2 1:27 TSH 1.25 mIU/mL 0.32-5.00 Urinalysis - 06/01/19 22:20 Icotest Negative Negative Urine Crystals Amorphous material: Abundant /HPF (may be due to storage in Ref before testing) Urine Volume Urine Volume Sufficient (10mL) Urine-Appearance Slightly Cloudy Clear Urine-Bacteria Rare Urine-Bilirubin 1+ Negative Urine-Blood Negative Negative Urine-Color Yellow Colorless-[place] ow Urine-Epithelial Cells 0-5/HPF Urine-Glucose Negative Negative Urine-Ketones Negative Negative Urine-Leukocytes Negative Negative Urine-Nitrite Negative Negative Urine-Other Urine Saved if Culture Need ed (48hrs from time of collection) Urine-pH 5.5 5-8.5 Urine-Protein Trace Negative Urine-RBC 0-2/HPF Urine-Specific [place] >=1.030 1.000-1 .030 Urine-WBC 0-2/HPF Urobilinogen 1.0 0.2-1.0 Complete blood count (CBC) with automate d white blood cell (WBC) differential - 07/02/19 11:30 Blood leukocytes automated count (number/volume) 10.6 10*3/uL 4.3-11.0 Blood erythrocytes automated count (number/volume) 5.64 10*6/uL 4.35-5.85 Venous blood hemoglobin measurement (mass/volume) 17.7 g/dL 13.3-17.7 Blood hematocrit (volume fraction) 52 % 40-54 Automated erythrocyte mean corpuscular volume 92 [ foz_us] 80-99 Automated erythrocyte mean corpuscular h emoglobin (mass per erythrocyte) 31 pg 25-34 Automated erythrocyte mean corpuscular h emoglobin concentration measurement (mass/volume) 34 g/dL 32-36 Automated erythrocyte distribution width ratio 14. 9 % 10.0- 14.5 Automated blood platelet count (count/volume) 263 10*3/uL 130-400 Automated blood platelet mean volume measurement 10.1 [foz_us] 7.4-10.4 Automated blood neutrophils/100 leukocytes 64 % 42-75 Automated blood lymphocytes/100 leukocytes 23 % 12-44 Blood monocytes/100 leukocytes 9 % 0-12 Automated blood eosinophils/100 leukocytes 4 % 0-10 Automated blood basophils/100 leukocytes 1 % 0-10 Blood neutrophils automated count (number/volume) 6.8 10*3 1.8-7.8 Blood lymphocytes automated count (number/volume) 2.5 10*3 1.0-4.0 Blood monocytes automated count (number/volume) 0. 9 10*3 0.0-1.0 Automated eosinophil count 0.4 10*3/uL 0 .0-0.3 Automated blood basophil count (count/volume) 0.1 10*3/uL 0.0-0.1 PT panel in platelet poor plasma by coag ulation assay - 07/02/19 11:30 Prothrombin time (PT) in platelet poor plasma by coagu lation assay 14.2 s 12.2-14.7 INR in platelet poor plasma or blood by coagulation as say 1.1 0.8-1.4 Activated partial thromboplastin time (a PTT) in platelet poor plasma bycoagulation assay - 07/02/19 11:30 Activated partial thromboplastin time (a PTT) in platelet poor plasma bycoagulation assay 47 s 24-35 Comprehensive metabolic panel - 07/02/19 11:30 Serum or plasma sodium measurement (moles/volume) 141 mmol/L 135-145 Serum or plasma potassium measurement (moles/volume) 4.4 mmol/L 3.6-5.0 Serum or plasma chloride measurement (moles/volume) 104 mmol/L 98-107 Carbon dioxide 27 mmol/L 21-32 Serum or plasma anion gap determination (moles/volume) 10 mmol/L 5-14 Serum or plasma urea nitrogen measurement (mass/volume ) 11 mg/dL 7-18 Serum or plasma creatinine measurement (mass/volume) 1.00 mg/dL 0.60-1.30 Serum or plasma urea nitrogen/creatinine mass ratio 11 NRG Serum or plasma creatinine measurement w ith calculation of estimated glomerular filtration rate > NRG Serum or plasma glucose measurement (mass/volume) 89 mg/dL 70-105 Serum or plasma calcium measurement (mass/volume) 10.0 mg/dL 8.5-10.1 Serum or plasma total bilirubin measurement (mass/volu me) 0.4 mg/dL 0.1-1.0 Serum or plasma alkaline phosphatase kathya surement (enzymatic activity/volume) 76 U/L 40-136 Serum or plasma aspartate aminotransfera se measurement (enzymatic activity/volume) 28 U/L 5-34 Serum or plasma alanine aminotransferase measurement (enzymatic activity/volume) 40 U/L 0-55 Serum or plasma protein measurement (mass/volume) 8.2 g/dL 6.4-8.2 Serum or plasma albumin measurement (mass/volume) 4.7 g/dL 3.2-4.5 Magnesium - 07/02/19 11:30 Magnesium 2.1 mg/dL 1.6-2.4 Serum or plasma troponin i.cardiac measu rement (mass/volume) - 07/02/19 11:30 Serum or plasma troponin i.cardiac measurement (mass/v olume) 0.079 ng/mL <0.028 Serum or plasma lithium measurement (mol es/volume) - 07/02/19 11:30 BNP PT 33.8 pg/mL <100.0 Myoglobin, serum - 07/02/19 11:30 Myoglobin, serum 42.5 ng/mL 10.0-92.0 Lipase - 07/02/19 11:30 Lipase 14 U/L 8-78 Serum or plasma ethanol measurement (mas s/volume) - 07/02/19 11:30 Serum or plasma ethanol measurement (mass/volume) < mg/dL <10 Urine drug screening test - 07/02/19 12: 40 Urine phencyclidine detection by screening method NEGATIVE NEGATIVE Urine benzodiazepines detection by screening method NEGATIVE NEGATIVE Urine cocaine detection NEGATIVE NEGATI VE Urine amphetamines detection by screening method N EGATIVE NEGATIVE Urine methamphetamine detection by screening method NEGATIVE NEGATIVE Urine cannabinoids detection by screening method P OSITIVE NEGATIVE Urine opiates detection by screening method NEGATI VE NEGATIVE Urine barbiturates detection NEGATIVE N EGATIVE Screening urine tricyclic antidepressants detection NEGATIVE NEGATIVE Urine methadone detection by screening method NEGA TIVE NEGATIVE Urine oxycodone detection NEGATIVE NEGA TIVE Urine propoxyphene detection NEGATIVE N EGATIVE Complete urinalysis with reflex to cultu re - 07/02/19 12:40 Urine color determination YELLOW NRG Urine clarity determination CLEAR NR G Urine pH measurement by test strip 5 5-9 Specific gravity of urine by test strip 1.010 1.016-1.022 Urine protein assay by test strip, semi-quantitative NEGATIVE NEGATIVE Urine glucose detection by automated test strip NE GATIVE NEGATIVE Erythrocytes detection in urine sediment by light micr oscopy NEGATIVE NEGATIVE Urine ketones detection by automated test strip NE GATIVE NEGATIVE Urine nitrite detection by test strip NEGATIVE NEGATIVE Urine total bilirubin detection by test strip NEGA TIVE NEGATIVE Urine urobilinogen measurement by automated test strip (mass/volume) NORMAL NORMAL Urine leukocyte esterase detection by dipstick NEG ATIVE NEGATIVE Automated urine sediment erythrocyte cou nt by microscopy (number/high power field) NONE NRG Automated urine sediment leukocyte count by microscopy (number/high power field) NONE NRG Bacteria detection in urine sediment by light microsco py NEGATIVE NRG Squamous epithelial cells detection in u rine sediment by light microscopy RARE NRG Crystals detection in urine sediment by light microsco py NONE NRG Casts detection in urine sediment by light microscopy PRESENT NRG Mucus detection in urine sediment by light microscopy SMALL NRG Complete urinalysis with reflex to culture NO NRG Hyaline casts detection in urine sediment by light diandra roscopy 2-5 NRG Granular casts detection in urine sediment by light mi croscopy RARE NRG Serum or plasma troponin i.cardiac measu rement (mass/volume) - 07/02/19 17:25 Serum or plasma troponin i.cardiac measurement (mass/v olume) 0.126 ng/mL <0.028 Serum or plasma troponin i.cardiac measu rement (mass/volume) - 07/02/19 23:30 Serum or plasma troponin i.cardiac measurement (mass/v olume) 0.150 ng/mL <0.028 Complete blood count (CBC) with automate d white blood cell (WBC) differential - 07/03/19 05:04 Blood leukocytes automated count (number/volume) 11.9 10*3/uL 4.3-11.0 Blood erythrocytes automated count (number/volume) 4.77 10*6/uL 4.35-5.85 Venous blood hemoglobin measurement (mass/volume) 15.0 g/dL 13.3-17.7 Blood hematocrit (volume fraction) 44 % 40-54 Automated erythrocyte mean corpuscular volume 93 [ foz_us] 80-99 Automated erythrocyte mean corpuscular h emoglobin (mass per erythrocyte) 31 pg 25-34 Automated erythrocyte mean corpuscular h emoglobin concentration measurement (mass/volume) 34 g/dL 32-36 Automated erythrocyte distribution width ratio 14. 6 % 10.0- 14.5 Automated blood platelet count (count/volume) 241 10*3/uL 130-400 Automated blood platelet mean volume measurement 10.0 [foz_us] 7.4-10.4 Automated blood neutrophils/100 leukocytes 48 % 42-75 Automated blood lymphocytes/100 leukocytes 38 % 12-44 Blood monocytes/100 leukocytes 9 % 0-12 Automated blood eosinophils/100 leukocytes 5 % 0-10 Automated blood basophils/100 leukocytes 1 % 0-10 Blood neutrophils automated count (number/volume) 5.8 10*3 1.8-7.8 Blood lymphocytes automated count (number/volume) 4.5 10*3 1.0-4.0 Blood monocytes automated count (number/volume) 1. 0 10*3 0.0-1.0 Automated eosinophil count 0.6 10*3/uL 0 .0-0.3 Automated blood basophil count (count/volume) 0.1 10*3/uL 0.0-0.1 Comprehensive metabolic panel - 07/03/19 05:04 Serum or plasma sodium measurement (moles/volume) 139 mmol/L 135-145 Serum or plasma potassium measurement (moles/volume) 4.1 mmol/L 3.6-5.0 Serum or plasma chloride measurement (moles/volume) 104 mmol/L 98-107 Carbon dioxide 26 mmol/L 21-32 Serum or plasma anion gap determination (moles/volume) 9 mmol/L 5-14 Serum or plasma urea nitrogen measurement (mass/volume ) 10 mg/dL 7-18 Serum or plasma creatinine measurement (mass/volume) 0.83 mg/dL 0.60-1.30 Serum or plasma urea nitrogen/creatinine mass ratio 12 NRG Serum or plasma creatinine measurement w ith calculation of estimated glomerular filtration rate > NRG Serum or plasma glucose measurement (mass/volume) 89 mg/dL 70-105 Serum or plasma calcium measurement (mass/volume) 9.3 mg/dL 8.5-10.1 Serum or plasma total bilirubin measurement (mass/volu me) 0.4 mg/dL 0.1-1.0 Serum or plasma alkaline phosphatase kathya surement (enzymatic activity/volume) 70 U/L 40-136 Serum or plasma aspartate aminotransfera se measurement (enzymatic activity/volume) 20 U/L 5-34 Serum or plasma alanine aminotransferase measurement (enzymatic activity/volume) 29 U/L 0-55 Serum or plasma protein measurement (mass/volume) 6.6 g/dL 6.4-8.2 Serum or plasma albumin measurement (mass/volume) 3.9 g/dL 3.2-4.5 CALCIUM CORRECTED 9.4 mg/dL 8.5-10.1 Lipid 1996 panel - 07/03/19 05:04 Serum or plasma triglyceride measurement (mass/volume) 126 mg/dL <150 Serum or plasma cholesterol measurement (mass/volume) 244 mg/dL < 200 Serum or plasma cholesterol in HDL measurement (mass/v olume) 53 mg/dL 40-60 Cholesterol in LDL [mass/volume] in serum or plasma by direct assay 188 mg/dL 1-129 Serum or plasma cholesterol in VLDL measurement (mass/ volume) 25 mg/dL 5-40 Automated blood complete blood count (he mogram) panel - 07/04/19 03:06 Blood leukocytes automated count (number/volume) 16.8 10*3/uL 4.3-11.0 Blood erythrocytes automated count (number/volume) 4.24 10*6/uL 4.35-5.85 Venous blood hemoglobin measurement (mass/volume) 13.4 g/dL 13.3-17.7 Blood hematocrit (volume fraction) 40 % 40-54 Automated erythrocyte mean corpuscular volume 93 [ foz_us] 80-99 Automated erythrocyte mean corpuscular h emoglobin (mass per erythrocyte) 32 pg 25-34 Automated erythrocyte mean corpuscular h emoglobin concentration measurement (mass/volume) 34 g/dL 32-36 Automated erythrocyte distribution width ratio 15. 0 % 10.0- 14.5 Automated blood platelet count (count/volume) 218 10*3/uL 130-400 Automated blood platelet mean volume measurement 10.1 [foz_us] 7.4-10.4 Whole blood basic metabolic panel - 06/17 06/04 03:06 Serum or plasma sodium measurement (moles/volume) 138 mmol/L 135-145 Serum or plasma potassium measurement (moles/volume) 3.9 mmol/L 3.6-5.0 Serum or plasma chloride measurement (moles/volume) 106 mmol/L 98-107 Carbon dioxide 26 mmol/L 21-32 Serum or plasma anion gap determination (moles/volume) 6 mmol/L 5-14 Serum or plasma urea nitrogen measurement (mass/volume ) 10 mg/dL 7-18 Serum or plasma creatinine measurement (mass/volume) 0.84 mg/dL 0.60-1.30 Serum or plasma urea nitrogen/creatinine mass ratio 12 NRG Serum or plasma creatinine measurement w ith calculation of estimated glomerular filtration rate > NRG Serum or plasma glucose measurement (mass/volume) 138 mg/dL 70-105 Serum or plasma calcium measurement (mass/volume) 8.6 mg/dL 8.5-10.1 Complete blood count (CBC) with automate d white blood cell (WBC) differential - 01/02/20 12:50 Blood leukocytes automated count (number/volume) 28.0 10*3/uL 4.3-11.0 Blood erythrocytes automated count (number/volume) 3.68 10*6/uL 4.35-5.85 Venous blood hemoglobin measurement (mass/volume) 11.4 g/dL 13.3-17.7 Blood hematocrit (volume fraction) 34 % 40-54 Automated erythrocyte mean corpuscular volume 93 [ foz_us] 80-99 Automated erythrocyte mean corpuscular h emoglobin (mass per erythrocyte) 31 pg 25-34 Automated erythrocyte mean corpuscular h emoglobin concentration measurement (mass/volume) 33 g/dL 32-36 Automated erythrocyte distribution width ratio 14. 7 % 10.0- 14.5 Automated blood platelet count (count/volume) 267 10*3/uL 130-400 Automated blood platelet mean volume measurement 10.5 [foz_us] 7.4-10.4 Automated blood neutrophils/100 leukocytes 84 % 42-75 Automated blood lymphocytes/100 leukocytes 11 % 12-44 Blood monocytes/100 leukocytes 5 % 0-12 Automated blood eosinophils/100 leukocytes 0 % 0-10 Automated blood basophils/100 leukocytes 0 % 0-10 Blood neutrophils automated count (number/volume) 23.5 10*3 1.8-7.8 Blood lymphocytes automated count (number/volume) 3.1 10*3 1.0-4.0 Blood monocytes automated count (number/volume) 1. 4 10*3 0.0-1.0 Automated eosinophil count 0.1 10*3/uL 0 .0-0.3 Automated blood basophil count (count/volume) 0.1 10*3/uL 0.0-0.1 Blood lactic acid measurement (moles/vol ume) - 01/02/20 12:50 Blood lactic acid measurement (moles/volume) 7.61 mmol/L 0.50-2.00 PT panel in platelet poor plasma by coag ulation assay - 01/02/20 12:50 Prothrombin time (PT) in platelet poor plasma by coagu lation assay 15.5 s 12.2-14.7 INR in platelet poor plasma or blood by coagulation as say 1.2 0.8-1.4 Activated partial thromboplastin time (a PTT) in platelet poor plasma bycoagulation assay - 01/02/20 12:50 Activated partial thromboplastin time (a PTT) in platelet poor plasma bycoagulation assay 28 s 24-35 Comprehensive metabolic panel - 01/02/20 12:50 Serum or plasma sodium measurement (moles/volume) 142 mmol/L 135-145 Serum or plasma potassium measurement (moles/volume) 4.1 mmol/L 3.6-5.0 Serum or plasma chloride measurement (moles/volume) 110 mmol/L 98-107 Carbon dioxide 17 mmol/L 21-32 Serum or plasma anion gap determination (moles/volume) 15 mmol/L 5-14 Serum or plasma urea nitrogen measurement (mass/volume ) 64 mg/dL 7-18 Serum or plasma creatinine measurement (mass/volume) 1.19 mg/dL 0.60-1.30 Serum or plasma urea nitrogen/creatinine mass ratio 54 NRG Serum or plasma creatinine measurement w ith calculation of estimated glomerular filtration rate > NRG Serum or plasma glucose measurement (mass/volume) 226 mg/dL 70-105 Serum or plasma calcium measurement (mass/volume) 8.8 mg/dL 8.5-10.1 Serum or plasma total bilirubin measurement (mass/volu me) 0.4 mg/dL 0.1-1.0 Serum or plasma alkaline phosphatase kathya surement (enzymatic activity/volume) 54 U/L 40-136 Serum or plasma aspartate aminotransfera se measurement (enzymatic activity/volume) 14 U/L 5-34 Serum or plasma alanine aminotransferase measurement (enzymatic activity/volume) 26 U/L 0-55 Serum or plasma protein measurement (mass/volume) 6.8 g/dL 6.4-8.2 Serum or plasma albumin measurement (mass/volume) 4.1 g/dL 3.2-4.5 CALCIUM CORRECTED 8.7 mg/dL 8.5-10.1 Serum or plasma C reactive protein measu rement (mass/volume) - 01/02/20 12:50 Serum or plasma C reactive protein measurement (mass/v olume) 0.38 mg/dL 0.00-0.50 RED CELLS LEUKO REDUCED AS1 - 01/02/20 1 2:50 RED CELLS LEUKO REDUCED AS1 R BRYCE NRG Blood type T Indirect antibody screen pa damaris - 01/02/20 12:50 WRISTBAND NUMBER [id number] NRG ABO+Rh group OP NRG Blood group antibody screen NEGATIVE NR G Manual absolute plasma cell count - 12/15 06/05 12:50 Blood monocytes/100 leukocytes 4 % NRG Manual blood segmented neutrophils/100 leukocytes 84 % NRG Manual blood lymphocytes/100 leukocytes 12 % NRG Blood polychromasia detection by light microscopy SLIGHT NRG Blood ovalocytes detection by light microscopy SLI GHT NRG Blood sera cells detection by light microscopy [facility] NR Serum or plasma salicylates measurement (mass/volume) - 01/02/20 12:50 Serum or plasma salicylates measurement (mass/volume) < mg/dL 5.0-20.0 Serum or plasma acetaminophen measuremen t (mass/volume) - 01/02/20 12:50 Serum or plasma acetaminophen measurement (mass/volume ) < ug/mL 10-30 Serum or plasma ethanol measurement (mas s/volume) - 01/02/20 12:50 Serum or plasma ethanol measurement (mass/volume) < mg/dL <10 Capillary blood glucose measurement by g lucometer (mass/volume) - 01/02/20 12:59 Capillary blood glucose measurement by glucometer (mas s/volume) 224 mg/dL 70-110 Influenza virus A and B antigen detectio n - 01/02/20 13:18 FLU RESULT NEGATIVE FOR INFLUENZA A AND B ANTIGENS BY IA NRG Serum or plasma lactate measurement (mol es/volume) - 01/02/20 15:09 Serum or plasma lactate measurement (moles/volume) 10.60 mmol/L 0.50-2.00 Complete urinalysis with reflex to cultu re - 01/02/20 15:09 Urine color determination YELLOW NRG Urine clarity determination CLEAR NR G Urine pH measurement by test strip 6.0 5-9 Specific gravity of urine by test strip 1.020 1.016-1.022 Urine protein assay by test strip, semi-quantitative NEGATIVE NEGATIVE Urine glucose detection by automated test strip NE GATIVE NEGATIVE Erythrocytes detection in urine sediment by light micr oscopy NEGATIVE NEGATIVE Urine ketones detection by automated test strip 1+ NEGATIVE Urine nitrite detection by test strip NEGATIVE NEGATIVE Urine total bilirubin detection by test strip NEGA TIVE NEGATIVE Urine urobilinogen measurement by automated test strip (mass/volume) 0.2 mg/dL < = 1.0 Urine leukocyte esterase detection by dipstick NEG ATIVE NEGATIVE Automated urine sediment erythrocyte cou nt by microscopy (number/high power field) NONE NRG Automated urine sediment leukocyte count by microscopy (number/high power field) NONE NRG Bacteria detection in urine sediment by light microsco py NEGATIVE NRG Squamous epithelial cells detection in u rine sediment by light microscopy NONE NRG Crystals detection in urine sediment by light microsco py NONE NRG Casts detection in urine sediment by light microscopy PRESENT NRG Mucus detection in urine sediment by light microscopy NEGATIVE NRG Complete urinalysis with reflex to culture CULTURE PENDING NRG Hyaline casts detection in urine sediment by light diandra roscopy 5-10 NRG Urine drug screening test - 01/02/20 15: 09 Urine phencyclidine detection by screening method NEGATIVE NEGATIVE Urine benzodiazepines detection by screening method NEGATIVE NEGATIVE Urine cocaine detection NEGATIVE NEGATI VE Urine amphetamines detection by screening method N EGATIVE NEGATIVE Urine methamphetamine detection by screening method NEGATIVE NEGATIVE Urine cannabinoids detection by screening method P OSITIVE NEGATIVE Urine opiates detection by screening method NEGATI VE NEGATIVE Urine barbiturates detection NEGATIVE N EGATIVE Screening urine tricyclic antidepressants detection NEGATIVE NEGATIVE Urine methadone detection by screening method NEGA TIVE NEGATIVE Urine oxycodone detection NEGATIVE NEGA TIVE Urine propoxyphene detection NEGATIVE N EGATIVE Encounters ACCT No. Visit Date/Time Discharge Status Pt. Type Provider Facility Loc./Unit Complaint [id number] 06/01/2019 20:59:00 06/02/2019 00:25: 00 DIS Outpatient RYANN PATRICIO APRN [facility] ER [id number] 06/01/2019 20:42:00 06/01/2019 23:59: 00 DIS Outpatient Madison RutledgeAshli [id number] 06/01/2019 22:15:41 Document Registration [id number] 07/02/2019 14:25:00 019 13:36:00 DIS Inpatient ZACKERY OSEGUERA MD Via [facility] ICU CHEST PAIN;ELEVATED TRO PONIN [id number] 01/04/2019 23:44:00 019 08:52:00 DIS Inpatient ALONA JONES, LARA V [facility] ICU A-FLUTTER W RVR [id number] 07/05/2013 22:40:00 013 12:05:00 DIS Inpatient [id number] 01/02/2020 15:10:[address] Inpatient ZACKERY OSEGUERA MD Via [facility] ICU HEMATERERIS,A FIB WITH RVR,L ACTIC ACIDOSIS
[2020-01-02] MEDS ORDERED: ONDANSETRON 4 MG/2 ML (SDV) Z0FRAN IV PRN (17:00)
[2020-01-02] MEDS ORDERED: fentaNYL INJECTION 100 MCG/2 ML AMP IV PRN (17:00)
[2020-01-02] MEDS ORDERED: PANTOPRAZOLE DRIP 200 MG/NS 100 ML IV SCH ×2 (17:00)
[2020-01-02] MEDS ORDERED: FLU QUADRIvalent (5+ YOA) 2019-2020 (AFLURIA) 0.5 ML IM ONE (17:30)
[2020-01-02] MEDS: LACTATED RINGERS 1,000 ML IV SCH ×2 (17:53→20:33)
[2020-01-02] MEDS: dilTIAZem DRIP 125 MG/125 ML DRIP IV SCH (18:02)
[2020-01-02 19:54] LABS: HEMOGLOBIN 8.4 G/DL (13.3-17.7)
[2020-01-02] MEDS: PANTOPRAZOLE 40 MG (PROTONIX) VIAL IV SCH (20:10)
--- NOTE | 2020-01-02 20:11 | NUR ---
DR CORONA INFORMED OF HEMOGLOBIN DROP FROM 11.4 TO 8.4. ORDERS RECEIVED TO REPEAT H&H AT MIDNIGHT AND TO HOLD ANTICOAGULANTS.
--- NOTE | 2020-01-02 20:15 | NUR ---
ORDERS FROM DR CORONA VIA TELEPHONE: IF HGB IN 4 HR LESS THAN 7 TRANSFUSE 1 UNIT PRBCS. RECHECK HBG AFTER UNIT IF LESS THAN 7 AGAIN, GIVE ANOTHER UNIT
--- OUTSIDE RECORDS SUMMARY | 2020-01-02 20:18 | XMS REPORT | Continuity of Care Document ---
Author Organization Unknown Address Unknown Phone Unavailable Allergies Active Description Code Type Severity Reaction Onset Reported/Identified Relationship to Patient Clinical Status Yes NO KNOWN DRUG ALLERGIES UNKNOWN UNKNOWN Yes No Known Drug Allergies [id number] Drug Allergy Unknown N/A 07/05/2013 Medications Medication [...] ALONA JONES LARA Ot Z79.89 9 OTHER [place] (CURRENT) DRUG THERAPY 01/05/2019 ALONA JONES LARA Ot Z91.19 PATIENT'S NONCOMPLIANCE W [facility] 01/05/2019 ALONA JONES LARA Ot [...] ALONA JONES LARA Ot Z79.89 9 OTHER [place] (CURRENT) DRUG THERAPY 01/05/2019 SAGE LARA Ot Z91.19 PATIENT'S NONCOMPLIANCE W [facility] 06/02/2019 RYANN PATRICIO APRN W [...] Ot I25. 10 ATHSCL HEART DISEASE OF [place] CORONARY 07/04/2019 ZACKERY OSEGUERA MD Ot I25. 42 CORONARY ARTERY DISSECTION 07/04/2019 ZACKERY OSEGUERA MD Ot I48. 91 UNSPECIFIED ATRIAL FIBRILLATION 07/04/2019 ZACKERY OSEGUERA MD Ot I48. 92 UNSPECIFIED ATRIAL FLUTTER 07/04/2019 ZACKERY OSEGUERA MD Ot J44. 9 CHRONIC OBSTRUCTIVE PULMONARY DISEASE, U 07/04/2019 ZACKERY OSEGUERA MD Ot Z79. 01 SKILLED NURSING (CURRENT) USE OF ANTICOAGULANT Procedures Code Description Performed By Per formed On 635113N DI LATION OF 1 COR ART WITH 4 DRUG-ELUT, 07/03/2019 [id number] ME ASURE OF CARDIAC SAMPL PRESSURE, L H 07/03/2019 [id number] RE STORATION OF CARDIAC RHYTHM, SINGLE 07/03/2019 [id number] FL UOROSCOPY OF MULT COR ART USING L OSM 07/03/2019 [id number] FL UOROSCOPY OF LEFT HEART USING LOW [...] Negative Urine-Blood Negative Negative Urine-Color Yellow Colorless-[place] ow Urine-Epithelial Cells 0-5/HPF Urine-Glucose Negative Negative Urine-Ketones Negative Negative Urine-Leukocytes Negative Negative Urine-Nitrite Negative Negative Urine-Other Urine Saved if Culture Need ed (48hrs from time of collection) Urine-pH 5.5 5-8.5 Urine-Protein Trace Negative Urine-RBC 0-2/HPF Urine-Specific [place] >=1.030 1.000-1 .030 Urine-WBC 0-2/HPF Urobilinogen 1.0 [...] pa damaris - 01/02/20 12:50 WRISTBAND NUMBER [id number] NRG ABO+Rh group OP NRG Blood group [...] sera cells detection by light microscopy [facility] NR Serum or plasma salicylates measurement [...] TIVE Urine propoxyphene detection NEGATIVE N EGATIVE Serum or plasma lactate measurement (mol es/volume) - 01/02/20 17:52 Serum or plasma lactate measurement (moles/volume) 1.76 mmol/L 0.50-2.00 PROCALCITONIN (PCT) - 01/02/20 19:10 PROCALCITONIN (PCT) 0.06 ng/mL <0.10 Whole blood hemoglobin and hematocrit pa damaris - 01/02/20 19:42 Venous blood hemoglobin measurement (mass/volume) 8.4 g/dL 13.3-17.7 Blood hematocrit (volume fraction) 26 % 40-54 Encounters ACCT No. Visit Date/Time Discharge Status Pt. Type Provider Facility Loc./Unit Complaint [id number] 06/01/2019 20:59:00 06/02/2019 00:25: 00 DIS Outpatient RYANN PATRICIO APRN [facility] ER [id number] 06/01/2019 20:42:00 06/01/2019 23:59: 00 DIS Outpatient Rebecca Rutledge [id number] 06/01/2019 22:15:41 Document Registration [id number] 07/02/2019 14:25:00 019 13:36:00 DIS Inpatient ANA ROSA IBARRA, ZACKERY Polanco [facility] ICU CHEST PAIN;ELEVATED TRO PONIN [id number] 01/04/2019 23:44:00 019 08:52:00 DIS Inpatient LARA SAGE DO, V [facility] ICU A-RICHY Escobedo RVR [id number] 07/05/2013 22:40:00 013 12:05:00 DIS Inpatient [id number] 01/02/2020 15:10:[address] Inpatient ANA ROSA IBARRA, ZACKERY Andre [facility] ICU HEMATERERIS,A FIB WITH RVR,L ACTIC ACIDOSIS
--- NOTE | 2020-01-02 20:57 | Consultation - Surgery ---
History of Present Illness History of Present Illness Patient Consulted On(myles/time) 01/02/20 18:51 Date Seen by Provider: Jan 02, 2020 Time Seen by Provider: 18:51 History of Present Illness Consult requested by Dr. Oseguera fo GI bleed. Patient is a 49 year old male who reports began having hematemesis last night. Throwing up darker blood multiple times. Patient two days ago consumed alcohol which he states he hasn't drank for a long time. He reports reflux symptoms that were fairly bad at times. Some pain in the epigastric region that is about a 6/10 no radiation of pain. Not had any more emesis since coming to [facility]. Patient is on anticoagulation and antiplatelet therapy. Patient had ct scan abdomen and pelvis which did not have any acute features. Allergies and Home Medications Allergies Coded Allergies: No Known Drug Allergies (Unverified , 07/05/13) Home Medications Albuterol Sulfate 1 Puff Puff, 2 PUFF IH Q4H, (Reported) Albuterol/Ipratropium 4 Gm Aero, 2 PUFF IH DAILY, (Reported) Aspirin 81 Mg Tablet.dr, 81 MG PO BID, (Reported) Atorvastatin Calcium 80 Mg Tablet, 80 MG PO HS Prescribed by: ZACKERY OSEGUERA on 07/04/19 1204 Clopidogrel Bisulfate 75 Mg Tablet, 75 MG PO DAILY Prescribed by: ZACKERY OSEGUERA on 07/04/19 1204 Dabigatran Etexilate Mesylate 150 Mg Capsule, 150 MG PO BID, (Reported) Diltiazem HCl 240 Mg Cap.er.deg, 240 MG PO DAILY, (Reported) Metoprolol Tartrate 25 Mg Tablet, 25 MG PO BID, (Reported) Patient Home Medication List Home Medication List Reviewed: Yes Past Dltjyzs-Lgbldc-Blmsid Hx Patient Social History Alcohol Use: Occasionally Uses Recreational Drug Use: Yes Drug of Choice: cannibus Smoking Status: Current Everyday Smoker Type Used: Pipe 2nd Hand Smoke Exposure: Yes Recent Foreign Travel: No Contact w/Someone Who Travel: No Recent Infectious Disease Expo: No Recent Hopitalizations: No Immunizations Up To Date Tetanus Booster (TDap): Unknown Seasonal Allergies Seasonal Allergies: No Surgeries History of Surgeries: No Respiratory History of Respiratory Disorde: Yes Respiratory Disorders: COPD Cardiovascular History of Cardiac Disorders: Yes (svt) Cardiac Disorders: Atrial Fibrillation, Hypertension Neurological History of Neurological Disord: No Reproductive System Hx Reproductive Disorders: No Genitourinary History of Genitourinary Disor: No Gastrointestinal History of Gastrointestinal Di: No Musculoskeletal History of Musculoskeletal Dis: No Endocrine History of Endocrine Disorders: No HEENT History of HEENT Disorders: No Cancer History of Cancer: No Psychosocial History of Psychiatric Problem: Yes Behavioral Health Disorders: Anxiety Integumentary History of Skin or Integumenta: No Blood Transfusions History of Blood Disorders: No Adverse Reaction to a Blood Tr: No Reviewed Nursing Assessment Reviewed/Agree w Nursing PMH: Yes Family Medical History Significant Family History: No Pertinent Family Hx Family Medial History: Alcoholism Alzheimer's disease Cardiovascular disease Colon cancer Diabetes mellitus Psychosocial problem Review of Systems-General Constitutional: weakness EENTM: No hearing loss, No blurred vision Respiratory: No cough, No wheezing Gastrointestinal: abdominal pain, nausea, vomiting Genitourinary: no symptoms reported; No decreased output, No frequency Musculoskeletal: No back pain, No gout, No joint pain Skin: No change in color, No change in hair/nails Psychiatric/Neurological: Denies Anxiety, Denies Depressed, Denies Emotional Problems Physical Exam-General Problems Physical Exam Vital Signs Vital Signs - First Documented 01/02/20 14:34 Temp 34.8 Pulse 112 Resp 22 B/P (MAP) 136/53 (80) Pulse Ox 100 O2 Delivery Room Air Capillary Refill : Less Than 3 Seconds General Appearance: no apparent distress HEENT: PERRL/EOMI, normal ENT inspection Neck: supple, normal inspection Respiratory: chest non-tender, no respiratory distress, no accessory muscle use Cardiovascular: regular rate, rhythm Gastrointestinal: soft, tenderness (minimal epigastric region) Rectal: deferred Back: no CVA tenderness, no vertebral tenderness Extremities: non-tender, normal inspection 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, no motor/sensory deficits, alert, normal mood/affect, oriented x 3 Skin: normal color, warm/dry Lymphatic: no adenopathy Data Review Labs Laboratory Tests 01/02/20 12:50: White Blood Count 28.0H, Red Blood Count 3.68L, Hemoglobin 11.4L, Hematocrit 34L , Mean Corpuscular Volume 93, Mean Corpuscular Hemoglobin 31, Mean Corpuscular Hemoglobin Concent 33, Red Cell Distribution Width 14.7H, Platelet Count 267, Mean Platelet Volume 10.5H, Neutrophils (%) (Auto) 84H, Lymphocytes (%) (Auto) 11L, Monocytes (%) (Auto) 5, Eosinophils (%) (Auto) 0, Basophils (%) (Auto) 0, Neutrophils # (Auto) 23.5H, Lymphocytes # (Auto) 3.1, Monocytes # (Auto) 1.4H, Eosinophils # (Auto) 0.1, Basophils # (Auto) 0.1, Neutrophils % (Manual) 84, Lymphocytes % (Manual) 12, Monocytes % (Manual) 4, Polychromasia SLIGHT, [place] Cells SLIGHT, Elliptocytes SLIGHT, Prothrombin Time 15.5H, INR Comment 1.2, Activated Partial Thromboplast Time 28, Sodium Level 142, Potassium Level 4.1, Chloride Level 110H, Carbon Dioxide Level 17L, Anion Gap 15H, Blood Urea Nitrogen 64H, Creatinine 1.19, Estimat Glomerular Filtration Rate > 60, BUN/Creatinine Ratio 54, Glucose Level 226H, Lactic Acid Level 7.61*H, Calcium Level 8.8, Corrected Calcium 8.7, Total Bilirubin 0.4, Aspartate Amino Transf (AST/SGOT) 14, Alanine Aminotransferase (ALT/SGPT) 26, Alkaline Phosphatase 54, C-Reactive Protein High Sensitivity 0.38, Total Protein 6.8, Albumin 4.1, Salicylates Level < 5.0L, Acetaminophen Level < 10L, Serum Alcohol < 10 01/02/20 12:59: Glucometer 224H 01/02/20 15:09: Lactic Acid Level 10.60*H, Urine Color YELLOW, Urine Clarity CLEAR, Urine pH 6.0, Urine Specific [place] 1.020, Urine Protein NEGATIVE, Urine Glucose (UA) NEGATIVE, Urine Ketones 1+H, Urine Nitrite NEGATIVE, Urine Bilirubin NEGATIVE, Urine Urobilinogen 0.2, Urine Leukocyte Esterase NEGATIVE, Urine RBC (Auto) NEGATIVE, Urine RBC NONE, Urine WBC NONE, Urine Squamous Epithelial Cells NONE, Urine Crystals NONE, Urine Bacteria NEGATIVE, Urine Casts PRESENT, Urine Hyaline Casts 5-10H, Urine Mucus NEGATIVE, Urine Culture Indicated CULTURE PENDING, Urine Opiates Screen NEGATIVE, Urine Oxycodone Screen NEGATIVE, Urine Methadone Screen NEGATIVE, Urine Propoxyphene Screen NEGATIVE, Urine Barbiturates Screen NEGATIVE, Ur Tricyclic Antidepressants Screen NEGATIVE, Urine Phencyclidine Screen NEGATIVE, Urine Amphetamines Screen NEGATIVE, Urine Methamphetamines Screen NEGATIVE, Urine Benzodiazepines Screen NEGATIVE, Urine Cocaine Screen NEGATIVE, Urine Cannabinoids Screen POSITIVEH 01/02/20 17:52: Lactic Acid Level 1.76 01/02/20 19:10: Procalcitonin 0.06 01/02/20 19:42: Hemoglobin 8.4#L, Hematocrit 26L Microbiology 01/02/20 Influenza Types A,B Antigen (MICHELLE) - Final, Complete Assessment/Plan Assessment/Plan Assessment/Plan hematemesis recent etoh use GERD epigastric abd pain patient in ICU for close monitoring follow hgb and transfuse if hgb less than 7 protonix drip may need egd if continues to drop npo Clinical Quality Measures DVT/VTE Risk/Contraindication: Risk Factor Score Per Nursin RFS Level Per Nursing on Admit: 4+=Very High Other: BLOODY EMESIS ANDREA CORONA DO Jan 02, 2020 20:56
[2020-01-03] VITALS (27 sets, daily range): BP systolic 90–147; BP diastolic 30–101
[2020-01-03 00:15] LABS: HEMOGLOBIN 7.3 G/DL (13.3-17.7)
[2020-01-03] MEDS: LACTATED RINGERS 1,000 ML IV SCH ×4 (00:30→17:53)
[2020-01-03 03:19] LABS: BASOPHILS % (AUTO) 0 % (0-10); EOSINOPHILS # (AUTO) 0.1 10^3/uL (0.0-0.3); EOSINOPHILS % (AUTO) 1 % (0-10); LYMPHOCYTES # (AUTO) 2.8 X 10^3 (1.0-4.0); LYMPHOCYTES % (AUTO) 22 % (12-44); MEAN CORPUSCULAR HEMOGLOBIN 30 PG (25-34); MEAN CORPUSCULAR HGB CONC 33 G/DL (32-36); MEAN CORPUSCULAR VOLUME 92 FL (80-99); MEAN PLATELET VOLUME 10.5 FL (7.4-10.4); MONOCYTES # (AUTO) 1.2 X 10^3 (0.0-1.0); MONOCYTES % (AUTO) 9 % (0-12); NEUTROPHILS # (AUTO) 8.4 X 10^3 (1.8-7.8); NEUTROPHILS % (AUTO) 67 % (42-75); PLATELET COUNT 153 10^3/uL (130-400); RED CELL DISTRIBUTION WIDTH 14.6 % (10.0-14.5); WHITE BLOOD COUNT 12.4 10^3/uL (4.3-11.0)
[2020-01-03 03:26] LABS: HEMOGLOBIN 6.6 G/DL (13.3-17.7)
[2020-01-03 03:27] LABS: HEMATOCRIT 20 % (40-54)
[2020-01-03 03:39] LABS: BUN/CREATININE RATIO 36; CALCIUM 7.6 MG/DL (8.5-10.1); CARBON DIOXIDE 22 MMOL/L (21-32); CHLORIDE 110 MMOL/L (98-107); CREATININE SERUM 0.76 MG/DL (0.60-1.30); GFR ESTIMATED > 60; GLUCOSE 91 MG/DL (70-105); MAGNESIUM 1.6 MG/DL (1.6-2.4); PHOSPHORUS 2.1 MG/DL (2.3-4.7); POTASSIUM 3.6 MMOL/L (3.6-5.0); SODIUM 140 MMOL/L (135-145)
[2020-01-03] MEDS ORDERED: NS IV 500 ML 500 ML IV SCH (03:45)
--- NOTE | 2020-01-03 05:06 | Pulmonary Consultation ---
History of Present Illness History of Present Illness Date Seen by Provider: Jan 03, 2020 Time Seen by Provider: 05:01 Date of Admission Allergies and Home Medications Allergies Coded Allergies: No Known Drug Allergies (Unverified , 07/05/13) Home Medications Albuterol Sulfate 1 Puff Puff, 2 PUFF IH Q4H, (Reported) Albuterol/Ipratropium 4 Gm Aero, 2 PUFF IH DAILY, (Reported) Aspirin 81 Mg Tablet.dr, 81 MG PO BID, (Reported) Atorvastatin Calcium 80 Mg Tablet, 80 MG PO HS Prescribed by: ZACKERY OSEGUERA on 07/04/19 1204 Clopidogrel Bisulfate 75 Mg Tablet, 75 MG PO DAILY Prescribed by: ZACKERY OSEGUERA on 07/04/19 1204 Dabigatran Etexilate Mesylate 150 Mg Capsule, 150 MG PO BID, (Reported) Diltiazem HCl 240 Mg Cap.er.deg, 240 MG PO DAILY, (Reported) Metoprolol Tartrate 25 Mg Tablet, 25 MG PO BID, (Reported) Past Shdjvyo-Svbtia-Apkpgy Hx Past Med/Social Hx: Reviewed Nursing Past Med/Soc Hx Patient Social History Alcohol Use: Occasionally Uses Recreational Drug Use: Yes Drug of Choice: cannibus Smoking Status: Current Everyday Smoker Type Used: Pipe 2nd Hand Smoke Exposure: Yes Recent Foreign Travel: No Contact w/Someone Who Travel: No Recent Infectious Disease Expo: No Recent Hopitalizations: No Immunizations Up To Date Tetanus Booster (TDap): Unknown Seasonal Allergies Seasonal Allergies: No Past Medical History Surgeries: No Respiratory: Yes COPD Cardiac: Yes (svt) Atrial Fibrillation, Hypertension Neurological: No Reproductive Disorders: No Genitourinary: No Gastrointestinal: No Musculoskeletal: No Endocrine: No HEENT: No Cancer: No Psychosocial: Yes Anxiety Integumentary: No Blood Disorders: No Adverse Reaction/Blood Tranf: No Family Medical History Alcoholism Alzheimer's disease Cardiovascular disease Colon cancer Diabetes mellitus Psychosocial problem No Pertinent Family Hx Review of Systems Time Seen by Provider: 05:06 Sepsis Event Evaluation Height, Weight, BMI Height: 6'2.00" Weight: 145lbs. 5.0oz. 65.272409yh; 18.75 BMI Method:Stated Exam Exam Vital Signs Date Time Temp Pulse Resp B/P (MAP) Pulse Ox O2 Delivery O2 Flow Rate FiO2 01/03/20 04:22 36.5 76 12 93/52 Room Air 01/03/20 04:07 36.7 65 9 99/55 100 Room Air 01/03/20 04:00 75 26 99/55 (70) 100 Room Air 01/03/20 03:12 95 Room Air 01/03/20 03:12 36.8 01/03/20 03:00 73 16 91/52 (65) 100 Room Air 01/03/20 02:00 77 14 95/50 (65) 100 Room Air 01/03/20 01:00 80 16 96/42 (60) 99 Room Air 01/03/20 01:00 83 01/03/20 00:00 76 13 99/50 (66) 97 Room Air 01/02/20 23:48 95 Room Air 01/02/20 23:47 37.0 01/02/20 23:00 70 14 104/53 (70) 100 Room Air 01/02/20 22:00 91 14 108/51 (70) 100 Room Air 01/02/20 21:00 73 17 106/58 (74) 100 Room Air 01/02/20 20:00 37.4 01/02/20 20:00 95 Room Air 01/02/20 20:00 98 19 107/58 (74) 99 Room Air 01/02/20 19:00 80 01/02/20 19:00 87 13 121/66 (84) 100 Room Air 01/02/20 18:00 79 21 120/70 (87) 100 Room Air 01/02/20 17:08 100 Room Air 01/02/20 17:00 87 11 126/76 (93) 100 Room Air 01/02/20 16:30 76 27 116/76 99 Room Air 01/02/20 16:15 133/63 (86) Room Air 01/02/20 14:34 34.8 112 22 136/53 (80) 100 Room Air I & O 01/03/20 07:00 Intake Total 5000 ml Output Total 1200 ml Balance 3800 ml Height & Weight Height: 6'2.00" Weight: 145lbs. 5.0oz. 65.101244pg; 18.75 BMI Method:Stated General Appearance: Anxious, Thin HEENT: PERRL/EOMI, Pharynx Normal Neck: Non Tender, Supple Respiratory: Lungs Clear, Normal Breath Sounds Cardiovascular: No Murmur, Tachycardia Capillary Refill: Less Than 3 Seconds Gastrointestinal: soft, tenderness (minimal epigastric region) Extremity: Normal Range of Motion, Non Tender Neurologic/Psychiatric: Alert, Oriented x3 Results Lab Laboratory Tests 01/02/20 12:50 01/02/20 19:42 01/03/20 00:02 01/03/20 03:10 Assessment/Plan Assessment/Plan Acute Upper GIB -surgery following -Monitor -Currently getting 1 unit of PRBC Afib with RVR -Cardizem gtt Metabolic acidosis - improved -IVF decrease to 150 Leukocytosis - reactive and improving -Doubt infection, No fever -No on Abx currently -Influenza is negative -Procacitonin is negative -UA is negative Hypokalemia, hypophos -Replace ALLISON CROWDER DO Jan 03, 2020 05:06
[2020-01-03] MEDS ORDERED: POTASSIUM PHOSPHATE INJ 30 MM in NS (IVPB) 250 ML IV ONE (05:15)
--- NOTE | 2020-01-03 07:47 | Diagnostic Imaging Report ---
INDICATION: Dyspnea COMPARISON: January 02, 2020 TECHNIQUE: Single radiograph chest dated 01/03/2020. FINDINGS: The cardiac silhouette is within normal limits in size. No significant pulmonary vascular congestion. The lungs are again noted to be hyperinflated, though clear focal pulmonary opacity. No pleural effusion. No pneumothorax. No acute osseous abnormality. IMPRESSION: Stable pulmonary hyperinflation without focal pulmonary consolidation. Dictated by: Dictated on workstation # [id number]
[2020-01-03] MEDS: PANTOPRAZOLE 40 MG (PROTONIX) VIAL IV SCH ×2 (08:08→19:59)
--- NOTE | 2020-01-03 08:20 | Consultation-Cardiology ---
HPI-Cardiology Cardiology Consultation Date of Consultation 01/03/20 Date of Admission Time Seen by Provider: 08:20 Indication: or hematemesis HPI 49 years old gentleman with history of coronary artery disease, non-ST VT and stent, paroxysmal atrial fibrillation, started to have hematemesis and came to the emergency room, no further vomiting was noted but continue to drop his he moglobin, denied any chest pain, palpitation, shortness of breath, syncope or near syncopal episodes, borderline hypotensive. Home Medications & Allergies Allergies: Coded Allergies: No Known Drug Allergies (Unverified , 07/05/13) Home Medication List Reviewed: Yes [id number] Hx Patient Social History Alcohol Use: Occasionally Uses Recreational Drug Use: Yes Drug of Choice: cannibus Smoking Status: Current Everyday Smoker Type Used: Pipe 2nd Hand Smoke Exposure: Yes Recent Foreign Travel: No Recent Infectious Disease Expo: No Recent Hopitalizations: No Immunizations Up To Date Tetanus Booster (TDap): Unknown Past Medical History Discussed below Family Medical History Significant Family History: No Pertinent Family Hx Family History: Alcoholism Alzheimer's disease Cardiovascular disease Colon cancer Diabetes mellitus Psychosocial problem Review of Systems-General Review of Systems Constitutional: see HPI, weakness EENTM: see HPI, no symptoms reported; No hearing loss, No blurred vision Respiratory: see HPI; No cough, No dyspnea on exertion, No hemoptysis, No orthopnea, No phlegm, No short of breath, No stridor, No wheezing, No other Cardiovascular: see HPI; No chest pain, No edema, No Hx of Intervention, No palpitations, No syncope, No vascular heart diseas, No other Gastrointestinal: see HPI, abdominal pain, hematemesis, nausea, vomiting Genitourinary: no symptoms reported, see HPI; No decreased output, No frequency Musculoskeletal: see HPI; No back pain, No gout, No joint pain Skin: see HPI; No change in color, No change in hair/nails Psychiatric/Neurological: See HPI; Denies Anxiety, Denies Depressed, Denies Emotional Problems All Other Systems Reviewed Negative Unless Noted: Yes Reviewed Test Results Reviewed Test Results Lab Laboratory Tests Test 01/02/20 12:50 01/02/20 12:59 01/02/20 15:09 01/02/20 17:52 Range/Units White Blood Count 28.0 H 4.3-11.0 10^3/uL Red Blood Count 3.68 L 4.35-5.85 10^6/uL Hemoglobin 11.4 L 13.3-17.7 G/DL Hematocrit 34 L 40-54 % Mean Corpuscular Volume 93 80-99 FL Mean Corpuscular Hemoglobin 31 25-34 PG Mean Corpuscular Hemoglobin Concent 33 32-36 G/DL Red Cell Distribution Width 14.7 H 10.0-14.5 % Platelet Count 267 130-400 10^3/uL Mean Platelet Volume 10.5 H 7.4-10.4 FL Neutrophils (%) (Auto) 84 H 42-75 % Lymphocytes (%) (Auto) 11 L 12-44 % Monocytes (%) (Auto) 5 0-12 % Eosinophils (%) (Auto) 0 0-10 % Basophils (%) (Auto) 0 0-10 % Neutrophils # (Auto) 23.5 H 1.8-7.8 X 10^3 Lymphocytes # (Auto) 3.1 1.0-4.0 X 10^3 Monocytes # (Auto) 1.4 H 0.0-1.0 X 10^3 Eosinophils # (Auto) 0.1 0.0-0.3 10^3/uL Basophils # (Auto) 0.1 0.0-0.1 10^3/uL Neutrophils % (Manual) 84 % Lymphocytes % (Manual) 12 % Monocytes % (Manual) 4 % Polychromasia SLIGHT Kanu Cells SLIGHT Elliptocytes SLIGHT Prothrombin Time 15.5 H 12.2-14.7 SEC INR Comment 1.2 0.8-1.4 Activated Partial Thromboplast Time 28 24-35 SEC Sodium Level 142 135-145 MMOL/L Potassium Level 4.1 3.6-5.0 MMOL/L Chloride Level 110 H 98-107 MMOL/L Carbon Dioxide Level 17 L 21-32 MMOL/L Anion Gap 15 H 5-14 MMOL/L Blood Urea Nitrogen 64 H 7-18 MG/DL Creatinine 1.19 0.60-1.30 MG/DL Estimat Glomerular Filtration Rate > 60 BUN/Creatinine Ratio 54 Glucose Level 226 H 70-105 MG/DL Lactic Acid Level 7.61 *H 10.60 *H 1.76 0.50-2.00 MMOL/L Calcium Level 8.8 8.5-10.1 MG/DL Corrected Calcium 8.7 8.5-10.1 MG/DL Total Bilirubin 0.4 0.1-1.0 MG/DL Aspartate Amino Transf (AST/SGOT) 14 5-34 U/L Alanine Aminotransferase (ALT/SGPT) 26 0-55 U/L Alkaline Phosphatase 54 40-136 U/L C-Reactive Protein High Sensitivity 0.38 0.00-0.50 MG/DL Total Protein 6.8 6.4-8.2 GM/DL Albumin 4.1 3.2-4.5 GM/DL Salicylates Level < 5.0 L 5.0-20.0 MG/DL Acetaminophen Level < 10 L 10-30 UG/ML Serum Alcohol < 10 <10 MG/DL Glucometer 224 H 70-110 MG/DL Urine Color YELLOW Urine Clarity CLEAR Urine pH 6.0 5-9 Urine Specific [place] 1.020 1.016-1.022 Urine Protein NEGATIVE NEGATIVE Urine Glucose (UA) NEGATIVE NEGATIVE Urine Ketones 1+ H NEGATIVE Urine Nitrite NEGATIVE NEGATIVE Urine Bilirubin NEGATIVE NEGATIVE Urine Urobilinogen 0.2 < = 1.0 MG/DL Urine Leukocyte Esterase NEGATIVE NEGATIVE Urine RBC (Auto) NEGATIVE NEGATIVE Urine RBC NONE /HPF Urine WBC NONE /HPF Urine Squamous Epithelial Cells NONE /HPF Urine Crystals NONE /LPF Urine Bacteria NEGATIVE /HPF Urine Casts PRESENT /LPF Urine Hyaline Casts 5-10 H /LPF Urine Mucus NEGATIVE /LPF Urine Culture Indicated CULTURE PENDING Urine Opiates Screen NEGATIVE NEGATIVE Urine Oxycodone Screen NEGATIVE NEGATIVE Urine Methadone Screen NEGATIVE NEGATIVE Urine Propoxyphene Screen NEGATIVE NEGATIVE Urine Barbiturates Screen NEGATIVE NEGATIVE Ur Tricyclic Antidepressants Screen NEGATIVE NEGATIVE Urine Phencyclidine Screen NEGATIVE NEGATIVE Urine Amphetamines Screen NEGATIVE NEGATIVE Urine Methamphetamines Screen NEGATIVE NEGATIVE Urine Benzodiazepines Screen NEGATIVE NEGATIVE Urine Cocaine Screen NEGATIVE NEGATIVE Urine Cannabinoids Screen POSITIVE H NEGATIVE Test 01/02/20 19:10 01/02/20 19:42 01/03/20 00:02 01/03/20 03:10 Range/Units Procalcitonin 0.06 <0.10 NG/ML Hemoglobin 8.4 #L 7.3 L 6.6 *L 13.3-17.7 G/DL Hematocrit 26 L 21 L 20 *L 40-54 % White Blood Count 12.4 H 4.3-11.0 10^3/uL Red Blood Count 2.19 L 4.35-5.85 10^6/uL Mean Corpuscular Volume 92 80-99 FL Mean Corpuscular Hemoglobin 30 25-34 PG Mean Corpuscular Hemoglobin Concent 33 32-36 G/DL Red Cell Distribution Width 14.6 H 10.0-14.5 % Platelet Count 153 130-400 10^3/uL Mean Platelet Volume 10.5 H 7.4-10.4 FL Neutrophils (%) (Auto) 67 42-75 % Lymphocytes (%) (Auto) 22 12-44 % Monocytes (%) (Auto) 9 0-12 % Eosinophils (%) (Auto) 1 0-10 % Basophils (%) (Auto) 0 0-10 % Neutrophils # (Auto) 8.4 H 1.8-7.8 X 10^3 Lymphocytes # (Auto) 2.8 1.0-4.0 X 10^3 Monocytes # (Auto) 1.2 H 0.0-1.0 X 10^3 Eosinophils # (Auto) 0.1 0.0-0.3 10^3/uL Basophils # (Auto) 0.0 0.0-0.1 10^3/uL Sodium Level 140 135-145 MMOL/L Potassium Level 3.6 3.6-5.0 MMOL/L Chloride Level 110 H 98-107 MMOL/L Carbon Dioxide Level 22 21-32 MMOL/L Anion Gap 8 5-14 MMOL/L Blood Urea Nitrogen 27 H 7-18 MG/DL Creatinine 0.76 0.60-1.30 MG/DL Estimat Glomerular Filtration Rate > 60 BUN/Creatinine Ratio 36 Glucose Level 91 70-105 MG/DL Calcium Level 7.6 L 8.5-10.1 MG/DL Phosphorus Level 2.1 L 2.3-4.7 MG/DL Magnesium Level 1.6 1.6-2.4 MG/DL Test 01/03/20 08:30 Range/Units Hemoglobin 8.5 #L 13.3-17.7 G/DL Hematocrit 25 L 40-54 % Physical Exam Physical Exam Vital Signs Vital Signs - First Documented 01/02/20 14:34 Temp 34.8 Pulse 112 Resp 22 B/P (MAP) 136/53 (80) Pulse Ox 100 O2 Delivery Room Air Capillary Refill : Less Than 3 Seconds Height, Weight, BMI Height: 6'2.00" Weight: 145lbs. 5.0oz. [id number]; 18.75 BMI Method:Stated General Appearance: Anxious, Thin Eyes: Bilateral Eye Normal Inspection, Bilateral Eye PERRL, Bilateral Eye EOMI HEENT: PERRL/EOMI, Pharynx Normal Neck: Non Tender, Supple Respiratory: Lungs Clear, Normal Breath Sounds Cardiovascular: No Gallop, Systolic Murmur, Irregularly Irregular, Tachycardia Gastrointestinal: No Organomegaly, No Pulsatile Mass, Non Tender, Soft Back: Normal Inspection, No CVA Tenderness, No Vertebral Tenderness Extremity: Normal Range of Motion, Non Tender Neurologic/Psychiatric: Alert, Oriented x3 Skin: Normal Color, Warm/Dry Lymphatic: No Adenopathy A/P-Cardiology Admission Diagnosis Upper GI bleed Anemia Coronary artery disease Hypertension Assessment/Plan Upper GI bleed, hematemesis, drop in H&H, managed by Dr. Sky. Coronary artery disease, history of stenting to the right coronary artery done in June 2019, had moderate severe disease of the diagonal branch. Can stop aspirin and Plavix safely at this time. Paroxysmal atrial fibrillation/flutter, currently in atrial fibrillation, has been maintained on oral anticoagulation which will be stopped at this point due to the active bleeding. Hypotension, monitor blood pressure Hyperlipidemia, monitor lipids Clinical Quality Measures DVT/VTE Risk/Contraindication: Risk Factor Score Per Nursin RFS Level Per Nursing on Admit: 4+=Very High Other: BLOODY EMESIS LAKESHA LINARES MD Jan 03, 2020 08:20
[2020-01-03 08:38] LABS: HEMOGLOBIN 8.5 G/DL (13.3-17.7)
[2020-01-03] MEDS ORDERED: ISM60TCR PO (09:58)
[2020-01-03] MEDS ORDERED: CLOP75TA28 PO (09:58)
[2020-01-03] MEDS ORDERED: NITR0.4T42 SL (10:09)
[2020-01-03] MEDS ORDERED: ATOR80TA76 PO (10:09)
--- NOTE | 2020-01-03 10:22 | NUR ---
SPOKE WITH THE PT, WENT THRU THE EXT MED HISTORY AND CALLED [facility] TO COMPLETE THE MED REC. PT WAS UNSURE HOW HE TAKES HIS MEDICATIONS, SAYS HE JUST TAKES THEM LIKE THE DIRECTIONS ON THE BOTTLES. I CALLED [facility] TO ABOUT THE METOPROLOL TART. THE RX THAT WAS SOLD 12-04-2019 WAS THE 25MG AND TAKE TAB BID- HOWEVER THAT LOOKED TO BE AN OLD RX AND PREVIOUSLY WAS TAKING 25MG 1 TAB BID. [facility] THINKS THE WRONG RX GOT FILLED AND IT DOES NOT LOOK LIKE THOSE ARE CURRENT DIRECTIONS. AT THE PATIENTS LAST HOSPITAL STAY AN RX WAS SENT TO [facility] USING THE 1 TAB BID DIRECTIONS. OTC MEDS: ASPIRIN 81MG
--- NOTE | 2020-01-03 11:14 | History & Physical-Hospitalist ---
History of Present Illness HPI/Chief Complaint Perry Lang is a 49-year-old male with past medical history of atrial flutter on anticoagulation, coronary artery disease status post stenting 06/2019, who presented with hematemesis. He reports that he had a few episodes of dark red bloody emesis at home. He says that he drank alcohol a few days ago for the first time in years. He was not vomiting before the bloody emesis. He denies any fevers or chills. He denies any chest pain or shortness of breath. He denies any diarrhea, constipation, abdominal pain. He denies any hematochezia or melena. He denies any lightheadedness or dizziness. He has not vomited since he got up to the ICU. He has never had any previous episodes of hematemesis. He has no known history of liver disease. He does not take NSAIDs. Source: patient Exam Limitations: no limitations Date Seen 01/03/20 Time Seen by a Provider: 09:20 Attending Physician Jennie Martin MD PCP No,Local Physician Referring Physician Date of Admission Jan 02, 2020 at 15:10 Home Medications & Allergies Home Medications Reviewed patient Home Medication Reconciliation performed by pharmacy medication reconciliations waste transportation technician and/or nursing. Patients Allergies have been reviewed. Allergies Allergies Coded Allergies No Known Drug Allergies (Unverified07/05/13) Past Jyjgtwg-[id number]-Sxugcm Hx Past Med/Social Hx: Reviewed Nursing Past Med/Soc Hx Patient Social History Alcohol Use: Occasionally Uses Recreational Drug Use: Yes Drug of Choice: cannibus Smoking Status: Current Everyday Smoker Type Used: Pipe 2nd Hand Smoke Exposure: Yes Recent Foreign Travel: No Contact w/other who traveled: No Recent Hopitalizations: No Recent Infectious Disease Expo: No Immunizations Up To Date Tetanus Booster (TDap): Unknown Seasonal Allergies Seasonal Allergies: No Past Medical History Cardiac: Atrial Fibrillation, Hypertension Reproductive: No Psychosocial: Anxiety History of Blood Disorders: No Adverse Reaction to Blood Jean: No Family History Alcoholism Alzheimer's disease Cardiovascular disease Colon cancer Diabetes mellitus Psychosocial problem No Pertinent Family Hx Review of Systems Constitutional: no symptoms reported EENTM: no symptoms reported Respiratory: no symptoms reported Cardiovascular: no symptoms reported Gastrointestinal: hematemesis Genitourinary: no symptoms reported Musculoskeletal: no symptoms reported Skin: no symptoms reported Psychiatric/Neurological: No Symptoms Reported Physical Exam Physical Exam Vital Signs Vital Signs - First Documented 01/02/20 14:34 Temp 34.8 Pulse 112 Resp 22 B/P (MAP) 136/53 (80) Pulse Ox 100 O2 Delivery Room Air Capillary Refill : Less Than 3 Seconds Height, Weight, BMI Height: 6'2.00" Weight: 145lbs. 5.0oz. [id number]; 18.75 BMI Method:Stated General Appearance: No Apparent Distress, Thin Neck: Normal Inspection, Supple Respiratory: Lungs Clear, Normal Breath Sounds, No Respiratory Distress Cardiovascular: Regular Rate, Rhythm, No Edema, No Murmur Gastrointestinal: Normal Bowel Sounds, Non Tender, Soft Extremity: Normal Inspection, Non Tender, No Pedal Edema Neurologic/Psychiatric: Alert, Oriented x3, No Motor/Sensory Deficits, Normal Mood/Affect Skin: Normal Color, Warm/Dry Results Results/Procedures Labs Laboratory Tests 01/02/20 12:50 01/02/20 19:42 01/03/20 00:02 01/03/20 03:10 01/03/20 08:30 Patient resulted labs reviewed. Imaging: Reviewed Imaging Report Assessment/Plan Admission Diagnosis Acute upper GI bleed Admission Status: Inpatient Order (span 2 midnights) Reason for Inpatient Admission: upper GI bleed requiring monitoring and possible endoscopic intervention Assessment and Plan acute upper GI bleed Acute blood loss anemia Hematemesis hemoglobin 11.4 on admission, likely falsely elevated due to hemoconcentration Trended downward to 6.6 this morning Status post 1 unit transfusion PRBC Repeat hemoglobin 8.5 continue IV PPI Nothing by mouth Gen. surgery consulted, appreciate assistance Lactic acidosis Likely secondary to GI bleeding Resolved with IV fluids and transfusion Atrial flutter Hold anticoagulation Cardiology consulted, appreciate assistance Coronary artery disease Cardiology consulted, appreciate his assistance Hold aspirin and Plavix Leukocytosis WBC 28 on arrival, down to 12.4 today No focal signs of infection DVT prophylaxis: Held due to active major bleeding Diagnosis/Problems Diagnosis/Problems (1) Acute upper GI hemorrhage (2) Acute blood loss anemia (3) Hematemesis Status: Acute Qualifiers: Nausea presence: with nausea Qualified Codes: K92.0 - Hematemesis (4) Atrial flutter Status: Chronic (5) Lactic acidosis Status: Resolved Resolution Date/Time: 01/03/20 @ 11:26 Clinical Quality Measures DVT/VTE Risk/Contraindication: Risk Factor Score Per Nursin RFS Level Per Nursing on Admit: 4+=Very High Other: BLOODY EMESIS JENNIE MARTIN MD Jan 03, 2020 11:14
[2020-01-03] MEDS ORDERED: ACETAMINOPHEN 325 MG TABLET PO PRN (11:30)
[2020-01-03] MEDS ORDERED: ACETAMINOPHEN 325 MG TABLET ONE (11:32)
[2020-01-03 14:44] LABS: HEMOGLOBIN 8.1 G/DL (13.3-17.7)
[2020-01-03] MEDS: dilTIAZem DRIP 125 MG/125 ML DRIP IV SCH (17:38)
--- NOTE | 2020-01-03 19:21 | Progress Note - Surgery ---
Subjective Date Seen by a Provider: Jan 03, 2020 Time Seen by a Provider: 12:32 Subjective/Events-last exam Patient no more emesis. Hgb went up with prbc transfusion. Curently 8.1 from 8.5. Having some back pain. NPO Denies n/v fever sweats chills shortness of breath or chest pain. Focused Exam Lactate Level 01/02/20 12:50: Lactic Acid Level 7.61*H 01/02/20 15:09: Lactic Acid Level 10.60*H 01/02/20 17:52: Lactic Acid Level 1.76 Objective Exam Vital Signs Date Time Temp Pulse Resp B/P (MAP) Pulse Ox O2 Delivery O2 Flow Rate FiO2 01/03/20 18:00 61 20 110/63 (79) 100 Room Air 01/03/20 17:00 64 15 95/30 (51) Room Air 01/03/20 16:00 Room Air 01/03/20 16:00 80 16 107/84 (92) 97 Room Air 01/03/20 15:31 37.8 01/03/20 15:00 63 18 98/58 (71) 100 Room Air 01/03/20 14:00 64 10 110/71 (84) 100 Room Air 01/03/20 13:00 59 19 111/64 (80) 100 Room Air 01/03/20 12:41 67 01/03/20 12:00 72 11 111/70 (84) 99 Room Air 01/03/20 12:00 Room Air 01/03/20 11:34 36.3 01/03/20 11:00 68 10 95/63 (74) 100 Room Air 01/03/20 10:00 71 23 108/65 (79) 100 Room Air 01/03/20 09:00 67 20 101/59 (73) 100 Room Air 01/03/20 08:00 Room Air 01/03/20 08:00 36.9 72 14 106/63 (77) 100 Room Air 01/03/20 07:00 69 23 92/56 (68) 100 Room Air 01/03/20 06:44 69 01/03/20 06:09 36.4 70 12 101/65 Room Air 01/03/20 06:00 73 23 101/65 (77) 100 Room Air 01/03/20 05:00 67 23 95/62 (73) 100 Room Air 01/03/20 04:22 36.5 76 12 93/52 Room Air 01/03/20 04:07 36.7 65 9 99/55 100 Room Air 01/03/20 04:00 75 26 99/55 (70) 100 Room Air 01/03/20 03:12 95 Room Air 01/03/20 03:12 36.8 01/03/20 03:00 73 16 91/52 (65) 100 Room Air 01/03/20 02:00 77 14 95/50 (65) 100 Room Air 01/03/20 01:00 80 16 96/42 (60) 99 Room Air 01/03/20 01:00 83 01/03/20 00:00 76 13 99/50 (66) 97 Room Air 01/02/20 23:48 95 Room Air 01/02/20 23:47 37.0 01/02/20 23:00 70 14 104/53 (70) 100 Room Air 01/02/20 22:00 91 14 108/51 (70) 100 Room Air 01/02/20 21:00 73 17 106/58 (74) 100 Room Air 01/02/20 20:00 37.4 01/02/20 20:00 95 Room Air 01/02/20 20:00 98 19 107/58 (74) 99 Room Air I & O 01/03/20 07:00 Intake Total 5000 ml Output Total 1550 ml Balance 3450 ml Capillary Refill : Less Than 3 Seconds General Appearance: No Apparent Distress, Thin HEENT: PERRL/EOMI, Pharynx Normal Neck: Normal Inspection, Supple Respiratory: Lungs Clear, Normal Breath Sounds, No Respiratory Distress Cardiovascular: Regular Rate, Rhythm, No Edema, No Murmur Gastrointestinal: non tender, soft, no organomegaly Extremity: Normal Inspection, Non Tender, No Pedal Edema Neurologic/Psychiatric: Alert, Oriented x3, No Motor/Sensory Deficits, Normal Mood/Affect Skin: Normal Color, Warm/Dry Lymphatic: No Adenopathy Results Lab Laboratory Tests 01/02/20 19:42: Hemoglobin 8.4#L, Hematocrit 26L 01/03/20 00:02: Hemoglobin 7.3L, Hematocrit 21L 01/03/20 03:10: Hemoglobin 6.6*L, Hematocrit 20*L, White Blood Count 12.4H, Red Blood Count 2.19L, Mean Corpuscular Volume 92, Mean Corpuscular Hemoglobin 30, Mean Corpuscular Hemoglobin Concent 33, Red Cell Distribution Width 14.6H, Platelet Count 153, Mean Platelet Volume 10.5H, Neutrophils (%) (Auto) 67, Lymphocytes (%) (Auto) 22, Monocytes (%) (Auto) 9, Eosinophils (%) (Auto) 1, Basophils (%) (Auto) 0, Neutrophils # (Auto) 8.4H, Lymphocytes # (Auto) 2.8, Monocytes # (Auto) 1.2H, Eosinophils # (Auto) 0.1, Basophils # (Auto) 0.0, Sodium Level 140, Potassium Level 3.6, Chloride Level 110H, Carbon Dioxide Level 22, Anion Gap 8, Blood Urea Nitrogen 27H, Creatinine 0.76, Estimat Glomerular Filtration Rate > 60, BUN/Creatinine Ratio 36, Glucose Level 91, Calcium Level 7.6L, Phosphorus Level 2.1L, Magnesium Level 1.6 01/03/20 08:30: Hemoglobin 8.5#L, Hematocrit 25L 01/03/20 11:54: Lab Scanned Report Transfusion Reaction Form 01/03/20 14:35: Hemoglobin 8.1L, Hematocrit 24L Microbiology 01/02/20 MRSA Screen - Final, Complete MRSA not isolated 01/02/20 Urine Culture - Final, Complete NO GROWTH 01/02/20 Blood Culture - Preliminary, Resulted No growth Assessment/Plan Assessment/Plan Assessment/Plan hematemesis recent etoh use GERD epigastric abd pain patient in ICU for close monitoring follow hgb and transfuse if hgb less than 7 protonix will start on clear liquds antiplatlet/anticoagulation on hold discussed EGD tomorrow he understands risks and benefits and wishes to proceed. Clinical Quality Measures DVT/VTE Risk/Contraindication: Risk Factor Score Per Nursin RFS Level Per Nursing on Admit: 4+=Very High Other: BLOODY EMESIS ANDREA CORONA DO Jan 03, 2020 19:21
[2020-01-04] VITALS (21 sets, daily range): BP systolic 74–118; BP diastolic 44–76
[2020-01-04] MEDS: LACTATED RINGERS 1,000 ML IV SCH ×4 (00:34→21:46)
[2020-01-04 03:24] LABS: BASOPHILS # (AUTO) 0.1 10^3/uL (0.0-0.1); BASOPHILS % (AUTO) 1 % (0-10); EOSINOPHILS # (AUTO) 0.3 10^3/uL (0.0-0.3); EOSINOPHILS % (AUTO) 2 % (0-10); HEMATOCRIT 22 % (40-54); HEMOGLOBIN 7.6 G/DL (13.3-17.7); LYMPHOCYTES # (AUTO) 2.6 X 10^3 (1.0-4.0); LYMPHOCYTES % (AUTO) 24 % (12-44); MEAN CORPUSCULAR HEMOGLOBIN 31 PG (25-34); MEAN CORPUSCULAR HGB CONC 34 G/DL (32-36); MEAN CORPUSCULAR VOLUME 91 FL (80-99); MEAN PLATELET VOLUME 10.5 FL (7.4-10.4); MONOCYTES # (AUTO) 1.1 X 10^3 (0.0-1.0); MONOCYTES % (AUTO) 10 % (0-12); NEUTROPHILS % (AUTO) 64 % (42-75); PLATELET COUNT 140 10^3/uL (130-400); RED CELL DISTRIBUTION WIDTH 15.6 % (10.0-14.5)
[2020-01-04 03:40] LABS: BUN/CREATININE RATIO 15; CALCIUM 7.5 MG/DL (8.5-10.1); CARBON DIOXIDE 23 MMOL/L (21-32); CHLORIDE 110 MMOL/L (98-107); CREATININE SERUM 0.68 MG/DL (0.60-1.30); GFR ESTIMATED > 60; GLUCOSE 85 MG/DL (70-105); MAGNESIUM 1.7 MG/DL (1.6-2.4); PHOSPHORUS 2.7 MG/DL (2.3-4.7); POTASSIUM 3.6 MMOL/L (3.6-5.0); SODIUM 142 MMOL/L (135-145)
[2020-01-04] MEDS: MAGNESIUM 1 GM/100 ML IVPB 100 ML IV SCH ×3 (03:50→04:52)
[2020-01-04] MEDS: POTASSIUM CL 10MEQ/50ML IVPB 50 ML IV SCH ×3 (03:50→04:51)
[2020-01-04] MEDS: KCL 20 MEQ TAB (K-DUR) PO SCH (03:51)
--- NOTE | 2020-01-04 06:50 | Diagnostic Imaging Report ---
Portable erect AP chest at 233 hours. INDICATION: Dyspnea. FINDINGS: The heart size is stable when compared to 01/03/2020. The central pulmonary vascularity is somewhat prominent but there is still no evidence for failure, pneumonia or for pleural effusion. The mediastinum is not widened. The osseous structures are intact. IMPRESSION: Stable chest. There has been no adverse change since the prior exam. Dictated by: Dictated on workstation # [id number]
[2020-01-04] MEDS: PANTOPRAZOLE 40 MG (PROTONIX) VIAL IV SCH (08:02)
--- NOTE | 2020-01-04 09:24 | Cardiology Progress Note ---
Subjective Date Seen by Provider: Jan 04, 2020 Time Seen by Provider: 09:22 Subjective/Events-last exam Patient is in bed, no new complaint Review of Systems General: No Chills, No Night Sweats, No Fatigue, No Malaise, No Appetite, No Other HEENT: No Head Aches, No Visual Changes, No Eye Pain, No Ear Pain, No Dysphasia, No Sinus Congestion, No Post Nasal Drip, No Sore Throat, No Other Pulmonary: No Dyspnea, No Cough, No Pleuritic Chest Pain, No Other Cardiovascular: No: Chest Pain, Palpitations, Orthopnea, Paroxysmal Noc. Dyspnea, Edema, Lt Headedness, Other Focused Exam Lactate Level 01/02/20 12:50: Lactic Acid Level 7.61*H 01/02/20 15:09: Lactic Acid Level 10.60*H 01/02/20 17:52: Lactic Acid Level 1.76 Objective-Cardiology Exam Last Set of Vital Signs Vital Signs 01/04/20 01/04/20 01/04/20 06:00 06:45 08:00 Temp 37.0 Pulse 65 Resp 17 B/P (MAP) 90/50 (63) Pulse Ox 96 O2 Delivery Room Air Capillary Refill : Less Than 3 Seconds I&O Intake and Output 01/04/20 00:00 Intake Total 3720 ml Output Total 3400 ml Balance 320 ml Intake Oral 460 ml IV Total 3260 ml Output Urine Total 3400 ml # Bowel Movements 1 General: Alert, Oriented X3, Cooperative HEENT: Atraumatic, PERRLA Neck: Supple, No JVD, No Thyromegaly Lungs: Clear to Auscultation, Normal Air Movement Heart: Regular Rate, Normal S1, Normal S2, No Murmurs Abdomen: Normal Bowel Sounds, Soft, No Tenderness, No Hepatosplenomegaly, No Masses Extremities: No Clubbing, No Cyanosis, No Edema, Normal Pulses, No Tenderness/Swelling Skin: No Rashes, No Breakdown, No Significant Lesion Neuro: Normal Gait, Normal Speech, Strength at 5/5 X4 Ext, Normal Tone, Sensation Intact Psych/Mental Status: Mental Status NL, Mood NL Results Lab Laboratory Tests 01/03/20 14:35 01/04/20 03:00 A/P-Cardiology Admission Diagnosis Upper GI bleed Anemia Coronary artery disease Hypertension Assessment/Plan Upper GI bleed, hematemesis, managed by Dr. Sky. Coronary artery disease, history of stenting to the right coronary artery done in June 2019, had moderate severe disease of the diagonal branch. Can stop aspirin and Plavix safely at this time. Paroxysmal atrial fibrillation/flutter, currently in sinus rhythm with APCs, off oral anticoagulation, continue to monitor Hypotension,better, monitor blood pressure Hyperlipidemia, monitor lipids Clinical Quality Measures DVT/VTE Risk/Contraindication: Risk Factor Score Per Nursin RFS Level Per Nursing on Admit: 4+=Very High Other: BLOODY EMESIS LAKESHA LINARES MD Jan 04, 2020 09:24
[2020-01-04] MEDS ORDERED: LACTATED RINGERS 1,000 ML IV ONE ×2 (13:01→13:15)
--- NOTE | 2020-01-04 13:07 | Progress Note - Surgery ---
Subjective Date Seen by a Provider: Jan 04, 2020 Time Seen by a Provider: 13:04 Subjective/Events-last exam hgb down to 7.6. Some back pain. No abdominal pain. no new complaints. denies n/v fever sweats chills shortness of breath or chest pain. Focused Exam Lactate Level 01/02/20 12:50: Lactic Acid Level 7.61*H 01/02/20 15:09: Lactic Acid Level 10.60*H 01/02/20 17:52: Lactic Acid Level 1.76 Objective Exam Vital Signs Date Time Temp Pulse Resp B/P (MAP) Pulse Ox O2 Delivery O2 Flow Rate FiO2 01/04/20 12:00 82 24 108/63 (78) 97 Room Air 01/04/20 11:00 64 12 97/52 (67) 98 Room Air 01/04/20 10:00 76 10 118/76 (90) 96 Room Air 01/04/20 09:00 57 11 105/74 (84) 97 Room Air 01/04/20 08:00 37.0 01/04/20 08:00 Room Air 01/04/20 08:00 65 10 99/62 (74) 97 Room Air 01/04/20 07:00 63 12 96/58 (71) 97 Room Air 01/04/20 06:45 65 01/04/20 06:00 65 17 90/50 (63) 96 Room Air 01/04/20 05:00 68 19 85/52 (63) 97 Room Air 01/04/20 04:00 58 12 108/59 (75) 97 Room Air 01/04/20 03:04 37.1 01/04/20 03:02 Room Air 01/04/20 03:00 65 14 105/59 (74) 97 Room Air 01/04/20 02:00 60 15 94/58 (70) 97 Room Air 01/04/20 01:00 68 13 97/65 (76) 96 Room Air 01/04/20 01:00 70 01/04/20 00:00 70 15 101/60 (74) 96 Room Air 01/03/20 23:29 Room Air 01/03/20 23:28 36.3 01/03/20 23:00 67 22 90/55 (67) 97 Room Air 01/03/20 22:00 68 14 107/59 (75) 97 Room Air 01/03/20 21:00 66 17 99/52 (68) 97 Room Air 01/03/20 20:00 64 17 104/63 (77) 98 Room Air 01/03/20 20:00 Room Air 01/03/20 19:14 36.7 01/03/20 19:00 82 01/03/20 19:00 82 17 147/101 (116) 100 Room Air 01/03/20 18:00 61 20 110/63 (79) 100 Room Air 01/03/20 17:00 64 15 95/30 (51) Room Air 01/03/20 16:00 Room Air 01/03/20 16:00 80 16 107/84 (92) 97 Room Air 01/03/20 15:31 37.8 01/03/20 15:00 63 18 98/58 (71) 100 Room Air 01/03/20 14:00 64 10 110/71 (84) 100 Room Air I & O 01/04/20 07:00 Intake Total 3020 ml Output Total 3520 ml Balance -500 ml Capillary Refill : Less Than 3 Seconds General Appearance: No Apparent Distress, Thin HEENT: PERRL/EOMI, Pharynx Normal Neck: Normal Inspection, Supple Respiratory: Lungs Clear, Normal Breath Sounds, No Respiratory Distress Cardiovascular: Regular Rate, Rhythm, No Edema, No Murmur Gastrointestinal: non tender, soft, no organomegaly Extremity: Normal Inspection, Non Tender, No Pedal Edema Neurologic/Psychiatric: Alert, Oriented x3, No Motor/Sensory Deficits, Normal Mood/Affect Skin: Normal Color, Warm/Dry Lymphatic: No Adenopathy Results Lab Laboratory Tests 01/03/20 14:35: Hemoglobin 8.1L, Hematocrit 24L 01/04/20 03:00: Hemoglobin 7.6L, Hematocrit 22L, White Blood Count 11.0, Red Blood Count 2.46L, Mean Corpuscular Volume 91, Mean Corpuscular Hemoglobin 31, Mean Corpuscular Hemoglobin Concent 34, Red Cell Distribution Width 15.6H, Platelet Count 140, Mean Platelet Volume 10.5H, Neutrophils (%) (Auto) 64, Lymphocytes (%) (Auto) 24, Monocytes (%) (Auto) 10, Eosinophils (%) (Auto) 2, Basophils (%) (Auto) 1, Neutrophils # (Auto) 7.0, Lymphocytes # (Auto) 2.6, Monocytes # (Auto) 1.1H, Eosinophils # (Auto) 0.3, Basophils # (Auto) 0.1, Sodium Level 142, Potassium Level 3.6, Chloride Level 110H, Carbon Dioxide Level 23, Anion Gap 9, Blood Urea Nitrogen 10, Creatinine 0.68, Estimat Glomerular Filtration Rate > 60, BUN/Creatinine Ratio 15, Glucose Level 85, Calcium Level 7.5L, Phosphorus Level 2.7, Magnesium Level 1.7 Microbiology 01/02/20 MRSA Screen - Final, Complete MRSA not isolated 01/02/20 Urine Culture - Final, Complete NO GROWTH 01/02/20 Blood Culture - Preliminary, Resulted No growth Assessment/Plan Assessment/Plan Assessment/Plan hematemesis recent etoh use GERD epigastric abd pain- resolved back pain patient in ICU for close monitoring follow hgb and transfuse if hgb less than 7 protonix npo antiplatlet/anticoagulation on hold discussed EGD today he understands risks and benefits and wishes to proceed. Clinical Quality Measures DVT/VTE Risk/Contraindication: Risk Factor Score Per Nursin RFS Level Per Nursing on Admit: 4+=Very High Other: BLOODY EMESIS ANDREA CORONA DO Jan 04, 2020 13:07
[2020-01-04] MEDS ORDERED: HURRICAINE EXT TUBE (BENZOCAINE) XX ONE (13:15)
[2020-01-04] MEDS ORDERED: PROPOFOL INJECTION 50 ML IV ONE (13:20)
[2020-01-04] MEDS ORDERED: HURRICAINE EXT TUBE (BENZOCAINE) ONE (13:52)
[2020-01-04] MEDS ORDERED: PANT40VI PO (13:59)
[2020-01-04] MEDS ORDERED: SUCR1TAB PO (13:59)
--- NOTE | 2020-01-04 14:16 | Progress Note-Post Operative ---
Post-Operative Progess Note Surgeon (s)/Advanced Manufacturing Associate (s) Surgeon ANDREA CORONA DO Advanced Manufacturing Associate: na Pre-Operative Diagnosis hematemesis, anemia Post-Operative Diagnosis gastritis, hiatal hernia Procedure & Operative Findings Date of Procedure 01/04/20 Procedure Performed/Findings egd c biopsy Anesthesia Type per emergency department physician Estimated Blood Loss Estimated blood loss (mL): none Specimens/Packing Specimens Removed antrum Packing: Dictation #[id number] ANDREA CORONA DO Jan 04, 2020 14:16
[2020-01-04] MEDS ORDERED: NS IV 500 ML 500 ML IV SCH (14:38)
[2020-01-04] MEDS ORDERED: HYDROCORTISONE 100 MG/2 ML (Solu-CORTEF) VIAL IV PRN (14:45)
[2020-01-04] MEDS ORDERED: diphenhydrAMINE 50 MG/ML INJ (BENADRYL) IV PRN (14:45)
[2020-01-04] MEDS ORDERED: EPINEPHrine INJECTION 1 MG/ML AMP IM PRN (14:45)
[2020-01-04] MEDS ORDERED: RT-ALBUTEROL SULF 2.5 MG/3 ML PRE-MIX VIAL IH PRN (14:45)
[2020-01-04] MEDS ORDERED: IRON DEXTRAN INJECTION 25 MG in NS (IVPB) 5.75 ML IV NR (14:45)
--- NOTE | 2020-01-04 14:55 | Progress Note - Hospitalist ---
Subjective HPI/CC On Admission Date Seen by Provider: Jan 04, 2020 Time Seen by Provider: 09:20 Perry Lang is a 49-year-old male with past medical history of atrial flutter on anticoagulation, coronary artery disease status post stenting 06/2019, who presented with hematemesis. He reports that he had a few episodes of dark red bloody emesis at home. He says that he drank alcohol a few days ago for the first time in years. He was not vomiting before the bloody emesis. He denies any fevers or chills. He denies any chest pain or shortness of breath. He denies any diarrhea, constipation, abdominal pain. He denies any hematochezia or melena. He denies any lightheadedness or dizziness. He has not vomited since he got up to the ICU. He has never had any previous episodes of hematemesis. He has no known history of liver disease. He does not take NSAIDs. Subjective/Events-last exam He reports no new complaints or concerns. He has had no further episodes of emesis. He denies any hematochezia or melena. He denies any abdominal pain. He denies any fevers or chills. He denies any chest pain or shortness of breath. Focused Exam Lactate Level 01/02/20 12:50: Lactic Acid Level 7.61*H 01/02/20 15:09: Lactic Acid Level 10.60*H 01/02/20 17:52: Lactic Acid Level 1.76 Objective Exam Vital Signs Vital Signs Date Time Temp Pulse Resp B/P (MAP) Pulse Ox O2 Delivery O2 Flow Rate FiO2 01/04/20 14:05 68 16 100 Room Air 01/04/20 14:00 8 01/04/20 12:00 108/63 (78) 01/04/20 12:00 37.2 Capillary Refill : Less Than 3 Seconds General Appearance: No Apparent Distress, Thin Respiratory: Lungs Clear, Normal Breath Sounds, No Respiratory Distress Cardiovascular: Regular Rate, Rhythm, No Edema, No Murmur Gastrointestinal: Normal Bowel Sounds, Non Tender, Soft Extremity: Normal Inspection, Non Tender, No Pedal Edema Neurologic/Psychiatric: Alert, Oriented x3, No Motor/Sensory Deficits, Normal Mood/Affect Skin: Normal Color, Warm/Dry Results/Procedures Lab Laboratory Tests 01/04/20 03:00 Patient resulted labs reviewed. Imaging: Reviewed Imaging Report Assessment/Plan Assessment and Plan Assess & Plan/Chief Complaint Acute upper GI bleed Acute blood loss anemia hemoglobin 7.6 this morning continue IV PPI Nothing by mouth Gen. surgery consulted, appreciate assistance Planning for EGD today Atrial flutter Hold anticoagulation Cardiology consulted, appreciate assistance Coronary artery disease Cardiology consulted, appreciate his assistance Hold aspirin and Plavix DVT prophylaxis: Held due to active major bleeding Lactic acidosis, resolved Leukocytosis, resolved Hematemesis, resolved Diagnosis/Problems Diagnosis/Problems (1) Acute upper GI hemorrhage Status: Acute (2) Acute blood loss anemia Status: Acute (3) Hematemesis Status: Resolved Qualifiers: Nausea presence: with nausea Qualified Codes: K92.0 - Hematemesis Resolution Date/Time: 01/04/20 @ 14:54 (4) Atrial flutter Status: Chronic (5) Lactic acidosis Status: Resolved Resolution Date/Time: 01/03/20 @ 11:26 Clinical Quality Measures DVT/VTE Risk/Contraindication: Risk Factor Score Per Nursin RFS Level Per Nursing on Admit: 4+=Very High Other: BLOODY EMESIS ZACKERY OSEGUERA MD Jan 04, 2020 14:55
[2020-01-04] MEDS ORDERED: IRON DEXTRAN INJECTION 1,000 MG in NS (IVPB) 250 ML IV NR (15:00)
--- NOTE | 2020-01-04 16:00 | NUR ---
Report from Kinza LEAL, patient to room 409, patient oriented to room, and call light. S.O at bedside. Denies any pain or discomfort at this time, will assume care at this time.
[2020-01-04] MEDS: SUCRALFATE 1 GM (CARAFATE) TAB PO SCH ×2 (16:53→19:27)
[2020-01-04] MEDS: PANTOPRAZOLE 40 MG (PROTONIX) TAB PO SCH (19:27)
--- NOTE | 2020-01-04 23:58 | OPERATIVE REPORT ---
DATE OF SERVICE: 01/04/2020 PREOPERATIVE DIAGNOSES: Hematemesis, anemia. POSTOPERATIVE DIAGNOSES: Gastritis, hiatal hernia. SURGEON: Andrea Sky DO ANESTHESIA: Per [employer]CH[employer] ADMINISTRATOR. PROCEDURE: EGD with biopsy. ESTIMATED BLOOD LOSS: None. COMPLICATIONS: None. SPECIMENS: Antrum. INDICATIONS: The patient is a 49-year-old male who was having hematemesis and was found to be anemic. He is also on anticoagulation. The patient was discussed with risks and benefits of procedure and wished to proceed with procedure. Consent was signed in the chart. DESCRIPTION OF PROCEDURE: The patient was taken to the endoscopy suite, placed in left lateral recumbent position. Timeout was performed. Scope was inserted into the mouth, down the esophagus, stomach and into the duodenum without difficulty. There were no polyps, masses or ulcerations within the duodenum. Scope was then slowly retracted back into the stomach where it was further insufflated. Erythematous changes consistent with gastritis were present. Biopsy of the antrum was obtained. Scope was retroflexed noting a hiatal hernia and some further areas of erythematous changes. No polyps, masses or ulcerations. Scope was returned to its normal position, slowly withdrawn to the distal esophagus, which had normal appearance. No polyps, masses or ulcerations. Scope was slowly retracted back to completely remove, noting no other pathology. RECOMMENDATIONS: The patient will follow up on biopsy of the antrum that was obtained. We will start the patient on Carafate 1 gram four times a day and continue on Protonix. Continue to monitor for anemia. We will start him on clear liquids and see how he does. Job ID: [id number] DocumentID: [id number] Dictated Date: 01/04/2020 14:16:04 Quality Systems Manager Date: 01/04/2020 23:56:54 Dictated By: ANDREA SKY DO
[2020-01-05] VITALS: BP 101/54
[2020-01-05] MEDS: LACTATED RINGERS 1,000 ML IV SCH ×2 (03:36→06:26)
[2020-01-05 04:00] VITALS: BP 101/60
[2020-01-05 05:35] LABS: BASOPHILS # (AUTO) 0.1 10^3/uL (0.0-0.1); BASOPHILS % (AUTO) 0 % (0-10); EOSINOPHILS # (AUTO) 0.4 10^3/uL (0.0-0.3); EOSINOPHILS % (AUTO) 3 % (0-10); HEMATOCRIT 25 % (40-54); HEMOGLOBIN 8.4 G/DL (13.3-17.7); LYMPHOCYTES # (AUTO) 2.8 X 10^3 (1.0-4.0); LYMPHOCYTES % (AUTO) 23 % (12-44); MEAN CORPUSCULAR HGB CONC 34 G/DL (32-36); MEAN CORPUSCULAR VOLUME 93 FL (80-99); MEAN PLATELET VOLUME 10.8 FL (7.4-10.4); MONOCYTES # (AUTO) 1.2 X 10^3 (0.0-1.0); MONOCYTES % (AUTO) 10 % (0-12); NEUTROPHILS # (AUTO) 7.4 X 10^3 (1.8-7.8); NEUTROPHILS % (AUTO) 63 % (42-75); PLATELET COUNT 199 10^3/uL (130-400); RED CELL DISTRIBUTION WIDTH 15.1 % (10.0-14.5); WHITE BLOOD COUNT 11.8 10^3/uL (4.3-11.0)
[2020-01-05 05:40] LABS: MEAN CORPUSCULAR HEMOGLOBIN 31 PG (25-34)
[2020-01-05 05:55] LABS: BUN/CREATININE RATIO 7; CALCIUM 8.2 MG/DL (8.5-10.1); CARBON DIOXIDE 20 MMOL/L (21-32); CHLORIDE 110 MMOL/L (98-107); CREATININE SERUM 0.83 MG/DL (0.60-1.30); GFR ESTIMATED > 60; GLUCOSE 129 MG/DL (70-105); POTASSIUM 3.5 MMOL/L (3.6-5.0); SODIUM 142 MMOL/L (135-145)
[2020-01-05] MEDS: POTASSIUM CL 10MEQ/50ML IVPB 50 ML IV SCH (06:00)
[2020-01-05] MEDS: KCL 20 MEQ TAB (K-DUR) PO SCH (06:00)
[2020-01-05] MEDS: MAGNESIUM 1 GM/100 ML IVPB 100 ML IV SCH (06:00)
[2020-01-05] MEDS: SUCRALFATE 1 GM (CARAFATE) TAB PO SCH (06:17)
[2020-01-05 08:00] VITALS: BP 100/63
[2020-01-05] MEDS: PANTOPRAZOLE 40 MG (PROTONIX) TAB PO SCH (08:05)
--- NOTE | 2020-01-05 10:12 | Discharge Summary ---
Discharge Summary Hospital Course Problems/Dx: (1) Acute upper GI hemorrhage Status: Acute (2) Acute blood loss anemia Status: Acute (3) Hematemesis Status: Resolved Qualifiers: Qualified Codes: K92.0 - Hematemesis (4) Atrial flutter Status: Chronic (5) Lactic acidosis Status: Resolved (6) Gastritis Status: Acute Qualifiers: (7) Hiatal hernia Status: Chronic Hospital Course Date of Admission: Jan 02, 2020 at 15:10 Admission Diagnosis : hematemesis Family Physician/Provider: MonicaLocal Physician Date of Discharge: 01/05/20 Discharge Diagnosis: acute blood loss anemia due to upper GI bleeding caused by gastritis Hospital Course: Perry Lang is a 49-year-old male with a past medical history of coronary artery disease with stent placement 6 months ago and atrial flutter on anticoagulation who presented with hematemesis. His hemoglobin dropped from 12 to 6. He received a transfusion and responded appropriately. His hemoglobin remained stable after that time. He received and iron infusion for iron deficiency anemia. He underwent upper endoscopy with general surgery and was found to have gastritis and a hiatal hernia. He was started on Carafate and pantoprazole. His aspirin was discontinued. He was continued on Plavix and Pradaxa. He should follow-up with his primary care physician in about a week for repeat labs to monitor hemoglobin. Labs and Pending Lab Test: Laboratory Tests 01/05/20 04:46: White Blood Count 11.8H, Red Blood Count 2.67L, Hemoglobin 8.4L, Hematocrit 25L, Mean Corpuscular Volume 93, Mean Corpuscular Hemoglobin 31, Mean Corpuscular Hemoglobin Concent 34, Red Cell Distribution Width 15.1H, Platelet Count 199, Mean Platelet Volume 10.8H, Neutrophils (%) (Auto) 63, Lymphocytes (%) (Auto) 23, Monocytes (%) (Auto) 10, Eosinophils (%) (Auto) 3, Basophils (%) (Auto) 0, Neutrophils # (Auto) 7.4, Lymphocytes # (Auto) 2.8, Monocytes # (Auto) 1.2H, Eosinophils # (Auto) 0.4H, Basophils # (Auto) 0.1, Sodium Level 142, Potassium Level 3.5L, Chloride Level 110H, Carbon Dioxide Level 20L, Anion Gap 12, Blood Urea Nitrogen 6L, Creatinine 0.83, Estimat Glomerular Filtration Rate > 60, BUN/Creatinine Ratio 7, Glucose Level 129H, Calcium Level 8.2L Microbiology 01/02/20 MRSA Screen - Final, Complete MRSA not isolated 01/02/20 Urine Culture - Final, Complete NO GROWTH 01/02/20 Blood Culture - Preliminary, Resulted No growth Home Meds Active Sucralfate 1 Gm Tablet 1 Gm PO ACHS Protonix IV (Pantoprazole Sodium) 40 Mg Vial 40 Mg PO DAILY Reported Nitroglycerin 0.4 Mg Tab.subl 0.4 Mg SL UD PRN Atorvastatin Calcium 80 Mg Tablet 80 Mg PO DAILY Isosorbide Mononitrate ER (Isosorbide Mononitrate) 60 Mg Tab 60 Mg PO DAILY Clopidogrel (Clopidogrel Bisulfate) 75 Mg Tablet 75 Mg PO DAILY Aspirin EC (Aspirin) 81 Mg Tablet.dr 81 Mg PO BID Dilt-Xr (Diltiazem HCl) 240 Mg Cap.er.deg 240 Mg PO DAILY Pradaxa (Dabigatran Etexilate Mesylate) 150 Mg Capsule 150 Mg PO BID Metoprolol Tartrate 25 Mg Tablet 25 Mg PO BID Assessment/Pt Instructions take medications as prescribed. Follow-up with your primary care physician. Repeat lab draw to monitor blood comments at follow-up in a week. Discharge Planning: <30 minutes discharge planning Discharge Instructions Discharge Diet: No Restrictions Activity as Tolerated: Yes Discharge Physical Examination Vital Signs Vital Signs Date Time Temp Pulse Resp B/P (MAP) Pulse Ox O2 Delivery O2 Flow Rate FiO2 01/05/20 08:00 37.4 76 18 100/63 (75) 99 Room Air 01/04/20 18:20 8.00 8.00 General Appearance: No Apparent Distress, Thin Respiratory: Lungs Clear, Normal Breath Sounds, No Respiratory Distress Cardiovascular: Regular Rate, Rhythm, No Edema, No Murmur Gastrointestinal: Normal Bowel Sounds, Non Tender, Soft Extremity: Normal Inspection, Non Tender, No Pedal Edema Skin: Normal Color, Warm/Dry Neurologic/Psychiatric: Alert, Oriented x3, No Motor/Sensory Deficits, Normal Mood/Affect Allergies: Coded Allergies: No Known Drug Allergies (Unverified , 07/05/13) Discharge Summary Date of Admission Jan 02, 2020 at 15:10 Date of Discharge Discharge Date: Jan 05, 2020 Discharge Time: 10:11 Admission Diagnosis Acute upper GI bleed Consults/Procedures Consulations Gen. surgery Procedures EGD Discharge Diagnosis acute blood loss anemia due to upper GI bleeding caused by gastritis (1) Acute upper GI hemorrhage Status: Acute (2) Acute blood loss anemia Status: Acute (3) Hematemesis Status: Resolved Qualifiers: Qualified Codes: K92.0 - Hematemesis (4) Atrial flutter Status: Chronic (5) Lactic acidosis Status: Resolved (6) Gastritis Status: Acute Qualifiers: (7) Hiatal hernia Status: Chronic Clinical Quality Measures DVT/VTE Risk/Contraindication: Risk Factor Score Per Nursin RFS Level Per Nursing on Admit: 4+=Very High Other: BLOODY EMESIS ZACKERY OSEGUERA MD Jan 05, 2020 10:11
[2020-01-05] MEDS ORDERED: FLU QUADRIvalent (5+ YOA) 2019-2020 (AFLURIA) 0.5 ML IM ONE (10:14)
[2020-01-05] MEDS ORDERED: PANT40TA3 PO (10:21)
--- NOTE | 2020-01-05 10:23 | Progress Note - Surgery ---
Subjective Time Seen by a Provider: 09:41 Subjective/Events-last exam Pt seen and examined, states no new pain and tolerating diet. Review of Systems General: No Chills, No Night Sweats Pulmonary: No Dyspnea, No Cough Cardiovascular: No: Chest Pain Gastrointestinal: No: Nausea, Vomiting Focused Exam Lactate Level 01/02/20 12:50: Lactic Acid Level 7.61*H 01/02/20 15:09: Lactic Acid Level 10.60*H 01/02/20 17:52: Lactic Acid Level 1.76 Objective Exam Vital Signs Date Time Temp Pulse Resp B/P (MAP) Pulse Ox O2 Delivery O2 Flow Rate FiO2 01/05/20 08:00 37.4 76 18 100/63 (75) 99 Room Air 01/05/20 04:00 37.6 70 19 101/60 (74) 98 Room Air 01/05/20 00:00 37.2 69 19 101/54 (70) 100 Room Air 01/04/20 21:10 36.9 80 22 111/64 (80) 98 Room Air 01/04/20 19:45 36.9 80 22 111/64 (80) 98 Room Air 01/04/20 18:20 37.2 81 57 104/59 (74) 89 Room Air 8.00 8.00 01/04/20 15:00 81 57 104/59 (74) 89 Room Air 01/04/20 14:05 68 16 100 Room Air 01/04/20 14:00 42 16 100 OxyMask 8 01/04/20 13:55 51 16 100 OxyMask 8 01/04/20 13:50 57 16 100 OxyMask 8 01/04/20 13:00 72 22 98 Room Air 01/04/20 12:46 76 01/04/20 12:00 82 24 108/63 (78) 97 Room Air 01/04/20 12:00 37.2 01/04/20 12:00 Room Air 01/04/20 11:00 64 12 97/52 (67) 98 Room Air I & O 01/05/20 07:00 Intake Total 1900 ml Output Total 2050 ml Balance -150 ml Capillary Refill : Less Than 3 Seconds General Appearance: No Apparent Distress, Thin HEENT: PERRL/EOMI, Moist Mucous Membranes Respiratory: Lungs Clear, Normal Breath Sounds, No Respiratory Distress Cardiovascular: Regular Rate, Rhythm, No Edema, No Murmur Gastrointestinal: non tender, soft, no organomegaly Extremity: Normal Inspection, Non Tender, No Pedal Edema Neurologic/Psychiatric: Alert, Oriented x3 Skin: Normal Color, Warm/Dry Results Lab Laboratory Tests 01/05/20 04:46: White Blood Count 11.8H, Red Blood Count 2.67L, Hemoglobin 8.4L, Hematocrit 25L, Mean Corpuscular Volume 93, Mean Corpuscular Hemoglobin 31, Mean Corpuscular Hemoglobin Concent 34, Red Cell Distribution Width 15.1H, Platelet Count 199, Mean Platelet Volume 10.8H, Neutrophils (%) (Auto) 63, Lymphocytes (%) (Auto) 23, Monocytes (%) (Auto) 10, Eosinophils (%) (Auto) 3, Basophils (%) (Auto) 0, Neutrophils # (Auto) 7.4, Lymphocytes # (Auto) 2.8, Monocytes # (Auto) 1.2H, Eosinophils # (Auto) 0.4H, Basophils # (Auto) 0.1, Sodium Level 142, Potassium Level 3.5L, Chloride Level 110H, Carbon Dioxide Level 20L, Anion Gap 12, Blood Urea Nitrogen 6L, Creatinine 0.83, Estimat Glomerular Filtration Rate > 60, BUN/Creatinine Ratio 7, Glucose Level 129H, Calcium Level 8.2L Microbiology 01/02/20 MRSA Screen - Final, Complete MRSA not isolated 01/02/20 Urine Culture - Final, Complete NO GROWTH 01/02/20 Blood Culture - Preliminary, Resulted No growth Assessment/Plan Assessment/Plan Assessment/Plan hematemesis recent etoh use GERD epigastric abd pain- resolved back pain EGD showed mild Gastritis and Hiatal hernia. Pt is on acid blockade and will follow up with Dr. Sky as an outpt. Clinical Quality Measures DVT/VTE Risk/Contraindication: Risk Factor Score Per Nursin RFS Level Per Nursing on Admit: 4+=Very High Other: BLOODY EMESIS BARBY YO DO Jan 05, 2020 10:23
--- NOTE | 2020-01-08 10:13 | Anesthesia-General Post-Op ---
MAC Significant Intra-Op Events Notes addendum 01-04-20 at 1415 Patient Condition Mental Status/LOC: Same as Preop Post Op Complications Complications None Follow Up Care/Instructions Patient Instructions None needed. Anesthesiology Discharge Order Discharge Order Patient is doing well, no complaints, stable vital signs, no apparent adverse anesthesia problems. No complications reported per nursing. JAYCEE MIRANDA CRNA Jan 08, 2020 10:13
== END 2020-01-05 11:36 | disposition home or self-care (01) | DRG 378 ==
LOC: EDUNIT# 12:45 → ER 12:47 → ICU 15:10 → 4TH 01-04 15:40
PROVIDERS: ADMIT Internal Medicine; ATTEND Internal Medicine
PROC: 0DB78ZX Excision of Stomach, Pylorus, Via Natural or Artificial Opening Endoscopic, Diagnostic (ICD-10-PCS; principal; 2020-01-04 13:30)
DX: K29.71 Gastritis, unspecified, with bleeding (principal); D62 Acute posthemorrhagic anemia; I48.92 Unspecified atrial flutter; E87.2 Acidosis; I48.0 Paroxysmal atrial fibrillation; R68.0 Hypothermia, not associated with low environmental temperature; R10.13 Epigastric pain; D72.829 Elevated white blood cell count, unspecified; I25.10 Atherosclerotic heart disease of native coronary artery without angina pectoris; I10 Essential (primary) hypertension; I25.2 Old myocardial infarction; J44.9 Chronic obstructive pulmonary disease, unspecified; K21.9 Gastro-esophageal reflux disease without esophagitis; F41.9 Anxiety disorder, unspecified; K59.00 Constipation, unspecified; E87.6 Hypokalemia; E83.39 Other disorders of phosphorus metabolism; E78.5 Hyperlipidemia, unspecified; F17.290 Nicotine dependence, other tobacco product, uncomplicated; Z86.718 Personal history of other venous thrombosis and embolism; Z95.5 Presence of coronary angioplasty implant and graft
CPT/HCPCS: 36415; 71045; 74177; 80048; 80053; 80306; 80320; 80329; 81000; 82962; 83605; 83735; 84100; 84145; 85007; 85014; 85018; 85025; 85027; 85610; 85730; 86141; 86850; 86900; 86901; 86920; 87040; 87081; 87088; 87804; 93005; 96361; 96365; 96366; 96367; 96375; 96376